=== PATIENT | female | born 1965 | race Caucasian/White ===

== ENCOUNTER → 2016-12-19 | Outpatient (CLI) | payer MEDICAID | LOC: FIMAGING 10:43 | PROVIDERS: ATTEND Family Medicine | DX: R05 Cough (principal); J02.9 Acute pharyngitis, unspecified; J18.9 Pneumonia, unspecified organism; R94.5 Abnormal results of liver function studies | CPT/HCPCS: 81256-90; 83516-90 ==

== ENCOUNTER 2017-01-15 18:39 | Emergency (ER) | payer MEDICAID ==
--- NOTE | 2017-01-15 18:40 | EDPHY ---
H & P Constitutional: Initial Vital Signs Temperature (C) 36.8 C 01/15/17 18:51 Heart Rate 101 H 01/15/17 18:51 Respiratory Rate 17 01/15/17 18:51 Blood Pressure 125/74 H 01/15/17 18:51 O2 Sat (%) 92 01/15/17 18:51 O2 Delivery Mode Room Air Allergies/Adverse Reactions: No Known Allergies Allergy (Unverified 01/15/17 18:50) Home Medications: Medication Instructions Recorded NK [No Known Home Meds] 01/15/17 Medical Decision Making ED Course/Re-evaluation: CHIEF COMPLAINT: Alcohol intoxication. HISTORY OF PRESENT ILLNESS: The patient is a 51-year-old female who presents via EMS for alcohol intoxication. Patient drinks on a daily basis and obtains whatever alcohol is available. Patient was found by bystanders who called EMS system. Patient has had multiple ER visits over the last several years for the same complaint. Patient denies any injuries denies loss of consciousness denies any recent trauma. Patient denies co-ingestion. Patient denies suicidal or homicidal behavior. REVIEW OF SYSTEMS: A 10 point review of systems was performed and is negative with the exception of the elements mentioned in the history of present illness. PHYSICAL EXAM: General Appearance: Alert, well hydrated, appropriate, and non-toxic appearing. Head: Atraumatic without scalp tenderness or obvious injury Eyes: Pupils equal, round, reactive to light and accommodation, EOMI, no trauma , no injection. Ears: Clear bilaterally, no perforation, normal landmarks Nose: Atraumatic, no rhinorrhea, clear. Throat: There is no erythema or exudates, no lesions, normal tonsils, mucus membranes moist. Neck: Supple, 2+ carotid upstroke, nontender, no lymphadenopathy. Respiratory: No retractions, no distress, no wheezes, and no accessory muscle use. Lungs are clear to auscultation bilaterally. Cardiovascular: Regular rate and rhythm, no murmurs, rubs, or gallops. Bilateral carotid, radial, dorsalis pedis, and posterior tibial pulses intact. Good capillary refill all extremities. Gastrointestinal: Abdomen is soft, nontender, non-distended, no masses, no rebound, no guarding, no peritoneal signs. Musculoskeletal: Normal active ROM of all extremities, atraumatic. Neurological: Alert, appropriate, and interactive. The patient has normal DTRs and non-focal cranial nerves, motor, sensory, and cerebellar exam. Skin: No rashes, good turgor, no nodules on palpation. PAST MEDICAL HISTORY: Denies. PAST SURGICAL HISTORY: Hysterectomy. SOCIAL HISTORY: Alcoholism. DIAGNOSTICS/PROCEDURES/CRITICAL CARE TIME: DIFFERENTIAL DIAGNOSIS: MEDICAL DECISION MAKING: I serially examined this patient since the patient's arrival here in the emergency department. The patient continues to become more and more sober with each examination. I serially questioned the patient and the patient's story given initially has not changed. The patient still denies any trauma, any head injury, and any illicit drug use. At this point, the patient is walking the department freely and is clinically sober. We're discharging the patient to the [facility] in stable condition. Departure - Departure Disposition: Home, Routine, Self-Care Clinical Impression: Alcohol intoxication Qualifiers: Complication of substance-induced condition: uncomplicated Qualified Code(s): F10.120 - Alcohol abuse with intoxication, uncomplicated Condition: Good Instructions: Abuse of Alcohol (ED) Additional Instructions: Return for any serious worsening of condition. Referrals: [facility] Detox 24 Hours [Outside] - As per Instructions Report Scribed for: Adeel Chapman Report Scribed by: Aiden Barfield Date of Report: 01/15/17 Time of Report: 18:57
[2017-01-15 18:53] VITALS: BP 125/74; PULSE 101; RESP 17; TEMP 98.2; O2SAT 92
== END 2017-01-15 19:24 | disposition home or self-care (01) ==
LOC: EDUNIT#
DX: F10.120 Alcohol abuse with intoxication, uncomplicated (principal)

== ENCOUNTER 2017-02-21 10:03 | Emergency (ER) | payer MEDICAID ==
--- NOTE | 2017-02-21 10:25 | CPEKG ---
Heart Rate: 119 RR Interval: 504 P-R Interval: 132 QRSD Interval: 86 QT Interval: 332 QTC Interval: 468 P [place]: 69 QRS [place]: 34 T Wave [place]: 63 EKG Severity - BORDERLINE ECG - EKG Impression: SINUS TACHYCARDIA EKG Impression: BORDERLINE INFERIOR Q WAVES Electronically Signed By: James Kaye 21-Feb-2017 12:12:03
[2017-02-21 10:37] LABS: % IMMATURE GRANULYOCYTES 0.4 % (0.0-1.1); ABSOLUTE IMMATURE GRANULOCYTES 0.04 10^3/uL (0.00-0.10); ADD DIFF? NO; ADD MORPH? NO; ADD SCAN? NO; ATYPICAL LYMPHOCYTE FLAG 0 (0-99); FRAGMENT RBC FLAG 0 (0-99); HEMATOCRIT 42.4 % (38.0-47.0); HEMOGLOBIN 14.5 g/dL (12.6-16.3); LEFT SHIFT FLG 0 (0-99); LIPEMIA HEMOLYSIS FLAG 90 (0-99); MEAN CELL HEMOGLOBIN 31.6 pg (27.9-34.1); MEAN CELL HEMOGLOBIN CONCENTR. 34.2 g/dL (32.4-36.7); MEAN CELL VOLUME 92.4 fL (81.5-99.8); MEAN PLATELET VOLUME 9.8 fL (8.7-11.7); PLATELET CLUMPS FLAG 10 (0-99); PLATELET COUNT 242 10^3/uL (150-400); RED BLOOD CELL COUNT 4.59 10^6/uL (4.18-5.33); RED CELL DISTRIBUTION WIDTH 11.3 % (11.5-15.2)
[2017-02-21] MEDS ORDERED: ONDANSETRON 4 MG/2 ML VIAL IVP ONE ×2 (10:37→12:03)
[2017-02-21] MEDS ORDERED: ONDANSETRON 4 MG/2 ML VIAL ONE (10:37)
[2017-02-21 10:49] LABS: ALANINE AMINOTRANSFERASE 41 IU/L (9-52); ALBUMIN 4.7 g/dL (3.5-5.0); ALKALINE PHOSPHATASE 66 IU/L (38-126); ANION GAP 20 mEq/L (8-16); ASPARTATE AMINOTRANSFERASE 43 IU/L (14-46); BILIRUBIN,TOTAL 0.9 mg/dL (0.1-1.4); BILIRUBIN-CONJUGATED 0.2 mg/dL (0.0-0.5); BILIRUBIN-UNCONJUGATED 0.7 mg/dL (0.0-1.1); CALCIUM 9.3 mg/dL (8.5-10.4); CARBON DIOXIDE 13 mEq/l (22-31); CHLORIDE 102 mEq/L (97-110); CREATININE 0.6 mg/dL (0.6-1.0); GLOMERULAR FILTRATION RATE > 60; GLUCOSE 55 mg/dL (70-100); POTASSIUM 3.6 mEq/L (3.5-5.2); SODIUM 135 mEq/L (134-144)
[2017-02-21 11:02] LABS: TROPONIN I 0.017 ng/mL (0-0.034)
--- NOTE | 2017-02-21 11:02 | EDPHY ---
H & P Stated Complaint: cp/epigastric pain sob Time Seen by Provider: 02/21/17 10:27 HPI/ROS: CHIEF COMPLAINT: Productive cough, epigastric pain HISTORY OF PRESENT ILLNESS: The patient presents to the emergency department with complaints of a productive cough and epigastric pain. The patient does report some mild hemoptysis. The patient denies any prior history of PE or DVT. The patient does have a history of asthma. She does take Singulair for this. She does not like to use albuterol secondary to side effects from the medication. The patient denies any vomiting. She does report associated nausea and diarrhea. The patient denies any recent surgery. She does have a history of multiple remote abdominal surgeries. The patient also takes Synthroid. The patient denies additional acute complaints. She does not smoke cigarettes. She reports she is a social wine drinker. REVIEW OF SYSTEMS: A comprehensive 10 point review of systems is otherwise negative aside from elements mentioned in the history of present illness. Source: Patient Exam Limitations: No limitations - Personal History LMP (Females 10-55): Hysterectomy Current Tetanus/Diphtheria Vaccine: Yes - Medical/Surgical History Hx Asthma: Yes Hx Chronic Respiratory Disease: No Hx Diabetes: No Hx Cardiac Disease: No Hx Renal Disease: No Hx Cirrhosis: No Hx Alcoholism: No Hx HIV/AIDS: No Hx Splenectomy or Spleen Trauma: No Other PMH: HYSTERECTOMY DM?/gerd - Social History Smoking Status: Former smoker - Physical Exam Exam: General Appearance: Alert, no distress Eyes: Pupils equal and round no pallor or injection ENT, Mouth: Mucous membranes moist Respiratory: There are no retractions, lungs are clear to auscultation Cardiovascular: Tachycardic Gastrointestinal: Minimal epigastric tenderness to palpation Neurological: A&O, normal motor function, normal sensory exam, normal cranial nerves Skin: Warm and dry, no rashes Musculoskeletal: Neck is supple nontender Extremities: symmetrical, full range of motion Constitutional: Initial Vital Signs Temperature (C) 36.7 C 02/21/17 10:13 Heart Rate 125 H 02/21/17 10:13 Respiratory Rate 20 02/21/17 10:13 Blood Pressure 151/65 H 02/21/17 10:13 O2 Sat (%) 94 02/21/17 10:13 O2 Delivery Mode Room Air Allergies/Adverse Reactions: amoxicillin Allergy (Verified 02/21/17 14:48) Hives azithromycin Allergy (Verified 02/21/17 14:48) Hives Home Medications: Medication Instructions Recorded Levothyroxine [Synthroid 100 mcg 100 mcg PO DAILY06 02/21/17 (*)] Montelukast Sodium [Singulair 10 10 mg PO DAILY 02/21/17 mg (*)] Multivitamins [Multivitamin (*)] 1 each PO DAILY 02/21/17 Tears/Dextran 70/Hypromellose 1 drop EACHEYE Q2 PRN 02/21/17 [Natural Balance Tears (*)] Medical Decision Making - Diagnostics EKG Interpretation: EKG: Complete interpretation has been separately recorded in the [email or web address] archive. Summary impression: Sinus tachycardia, rate 122 Imaging Results: Imaging Impressions Chest X-Ray 02/21/17 10:27 Impression: 1. No definite pneumonia. 2. Mild bronchitis. ED Course/Re-evaluation: The patient presents to the ED for evaluation of an epigastric pain and productive cough. Her chest x-ray demonstrates no evidence of acute disease. The patient has a negative D-dimer which I feel adequately excludes pulmonary embolism. The patient has normal CBC, basic metabolic panel and D-dimer. The patient's EKG demonstrates only minus as tachycardia. While in the department, the patient's symptoms shifted more towards abdominal pain and chest pain. The patient complained of moderate epigastric pain. She had no vomiting. She did have several bouts of watery diarrhea. This was sent to the lab further testing. The patient received IV Toradol, Zofran, 2 L of normal saline as well as IV narcotics. Patient had multiple examinations in the ED by myself over a 3 hour period. She continues to have ongoing tachycardia, complaints of abdominal pain and chest pain and poor appetite. At this point time the etiology of her symptoms are somewhat uncertain. It is certainly possible she is experiencing a viral syndrome with her productive cough and hemoptysis and now has developed symptoms of a gastroenteritis. Given her tachycardia I do feel that she should be admitted to the hospital for observation. Consultation was made with the hospitalist service for admission. I spoke with Dr. Jhon Cabrera at 2:30 p.m. who will admit the patient. Differential Diagnosis: Differential diagnosis considered includes pulmonary embolism, pneumonia, bronchitis, pancreatitis, peptic ulcer disease, gastroenteritis, dehydration - Data Points Laboratory Results: Laboratory Results 02/21/17 10:33 02/21/17 10:33 02/21/17 02/21/17 02/21/17 10:33 10:33 10:33 WBC 10.70 10^3/uL H 10^3/uL (3.80-9.50) RBC 4.59 10^6/uL 10^6/uL (4.18-5.33) Hgb 14.5 g/dL g/dL (12.6-16.3) Hct 42.4 % % (38.0-47.0) MCV 92.4 fL fL (81.5-99.8) MCH 31.6 pg pg (27.9-34.1) MCHC 34.2 g/dL g/dL (32.4-36.7) RDW 11.3 % L % (11.5-15.2) Plt Count 242 10^3/uL 10^3/uL (150-400) MPV 9.8 fL fL (8.7-11.7) Neut % (Auto) 77.8 % H % (39.3-74.2) Lymph % (Auto) 15.4 % % (15.0-45.0) [place] % (Auto) 5.8 % % (4.5-13.0) Eos % (Auto) 0.0 % L % (0.6-7.6) Baso % (Auto) 0.6 % % (0.3-1.7) Nucleat RBC Rel Count 0.0 % % (0.0-0.2) Absolute Neuts (auto) 8.33 10^3/uL H 10^3/uL (1.70-6.50) Absolute Lymphs (auto) 1.65 10^3/uL 10^3/uL (1.00-3.00) Absolute Monos (auto) 0.62 10^3/uL 10^3/uL (0.30-0.80) Absolute Eos (auto) 0.00 10^3/uL L 10^3/uL (0.03-0.40) Absolute Basos (auto) 0.06 10^3/uL 10^3/uL (0.02-0.10) Absolute Nucleated RBC 0.00 10^3/uL 10^3/uL (0-0.01) Immature Gran % 0.4 % % (0.0-1.1) Immature Gran # 0.04 10^3/uL 10^3/uL (0.00-0.10) D-Dimer 0.50 ug/mLFEU ug/mLFEU (0.00-0.50) Sodium 135 mEq/L mEq/L (134-144) Potassium 3.6 mEq/L mEq/L (3.5-5.2) Chloride 102 mEq/L mEq/L (97-110) Carbon Dioxide 13 mEq/l L mEq/l (22-31) Anion Gap 20 mEq/L H mEq/L (8-16) BUN 14 mg/dL mg/dL (7-23) Creatinine 0.6 mg/dL mg/dL (0.6-1.0) Estimated GFR > 60 Glucose 55 mg/dL L mg/dL (70-100) Calcium 9.3 mg/dL mg/dL (8.5-10.4) Total Bilirubin 0.9 mg/dL mg/dL (0.1-1.4) Conjugated Bilirubin 0.2 mg/dL mg/dL (0.0-0.5) Unconjugated Bilirubin 0.7 mg/dL mg/dL (0.0-1.1) AST 43 IU/L IU/L (14-46) ALT 41 IU/L IU/L (9-52) Alkaline Phosphatase 66 IU/L IU/L (38-126) Troponin I 0.017 ng/mL ng/mL (0-0.034) Total Protein 8.0 g/dL g/dL (6.3-8.2) Albumin 4.7 g/dL g/dL (3.5-5.0) Lipase 59.0 IU/L IU/L (23-300) Medications Given: Discontinued Medications Sodium Chloride (Ns) 1,000 mls @ 0 mls/hr IV ONCE ONE; Wide Open PRN Reason: Protocol Stop: 02/21/17 12:05 Last Admin: 02/21/17 12:08 Dose: 1,000 mls Sodium Chloride (Ns) 1,000 mls @ 0 mls/hr IV ONCE ONE; Wide Open PRN Reason: Protocol Stop: 02/21/17 12:05 Last Admin: 02/21/17 12:09 Dose: 1,000 mls Ketorolac Tromethamine (Toradol) 30 mg IVP EDNOW ONE Stop: 02/21/17 12:04 Last Admin: 02/21/17 12:08 Dose: 30 mg Ondansetron HCl (Zofran) 4 mg IVP EDNOW ONE Stop: 02/21/17 10:38 Last Admin: 02/21/17 10:42 Dose: 4 mg Ondansetron HCl (Zofran) 4 mg IVP EDNOW ONE Stop: 02/21/17 12:04 Last Admin: 02/21/17 12:08 Dose: 4 mg Departure - Departure Disposition: [facility] Inpatient Acute Clinical Impression: Chest pain, Bronchitis, Epigastric abdominal pain, Vomiting, Tachycardia Condition: Fair
[2017-02-21] MEDS ORDERED: KETOROLAC 30 MG/1 ML SDV IVP ONE (12:03)
[2017-02-21] MEDS ORDERED: NS 1,000 ML IV ONE ×2 (12:04)
[2017-02-21] MEDS ORDERED: LORazepam 2 MG/ML INJ IVP ONE (15:14)
[2017-02-21] MEDS ORDERED: chlordiazePOXIDE 25 MG CAP PO ONE (15:49)
[2017-02-21] MEDS ORDERED: CHLORDIAZEPOXIDE 25MG PREPK#6 BTL TAKEHOME ONE (16:17)
[2017-02-21 16:21] VITALS: BP 155/80; PULSE 103; RESP 18; TEMP 97.9; O2SAT 96
== END 2017-02-21 16:43 | disposition still patient (30) ==
LOC: UNDOADMOB 14:10
DX: J20.9 Acute bronchitis, unspecified (principal); R07.9 Chest pain, unspecified; R10.13 Epigastric pain; R11.10 Vomiting, unspecified; R00.0 Tachycardia, unspecified; F10.239 Alcohol dependence with withdrawal, unspecified
CPT/HCPCS: 96374; J1885; J2060; J2405

== ENCOUNTER 2017-02-27 14:51 | Emergency (ER) | payer MEDICAID ==
[2017-02-27 14:57] VITALS: TEMP 98.4
--- NOTE | 2017-02-27 15:02 | EDPHY ---
HPI/HX/ROS/PE/MDM Narrative: CHIEF COMPLAINT: Abdominal pain HPI: This patient is a 51-year-old female with history of diverticulitis and alcoholism who presents to the Emergency Department complaining of acute onset abdominal pain beginning yesterday and worsening over time. She describes her pain as moderate and localized to her left lower quadrant with associated abdominal bloating. She has attempted to alleviate the pain with Ibuprofen and acetaminophen without improvement. She reports normal bowel movements since onset of pain. She denies nausea or vomiting, fever or chills, or any additional complaints. She was recently in the ED on 02/21 and evaluated for epigastric pain at that time that appeared to be secondary to alcohol withdrawal. REVIEW OF SYSTEMS: Aside from elements discussed in the HPI, a comprehensive 10-point review of systems was reviewed and is negative. PMH: Diverticulitis. SOCIAL HISTORY: Alcoholism; was discharged to the [facility] after visit on 02/21 for alcohol detoxification. PHYSICAL EXAM: General:Patient is alert, in no acute distress. ENT:Eyes are normal to inspection. ENT inspection normal. Neck: Normal inspection. Full range of motion. Respiratory:No respiratory distress. Breath sounds normal bilaterally. Cardiovascular: Regular rate and rhythm. Strong peripheral pulses. Normal cap refill. Abdomen:Moderate LLQ tenderness. There are no peritoneal signs. There are normal bowel sounds. Back: Normal to inspection. No tenderness to palpation. Skin: Normal color. No rash. Warm and dry. Extremities: Normal appearance. Full range of motion. Neuro: Oriented x3. Normal motor function. Normal sensory function. ED Course: 51-year-old female with history of diverticulitis and alcohol abuse presents with complaint of abdominal pain localized to her LLQ; no associated complaints. On exam, she has moderate tenderness to her LLQ. There are no additional significant findings. Will proceed with CBC and BMP. Plan for CT of the abdomen. Creatinine measured at 0.8. Will proceed with abdominal CT. I reviewed medical records from the patient's most recent visit to the ED on 06/2017. Labs obtained: WBC mildly elevated at 11.19. 1650: Imaging results reported to me by Dr. Trent, radiology. CT reveals acute sigmoid diverticulitis and small intramural abscess. I discussed imaging findings with the patient. Will consult with on-call general surgeon. IV established. 0.5mg IV Dilaudid, 4mg IV Zofran, IV metronidazole, and 500mg PO Cipro administered. 1700: Consultation with Dr. Francis Heart, general surgery, who reviewed CT images and reports that the intramural abscess is non-surgical. The patient will be started on a course of Cipro and Flagyl to treat diverticulitis. She is given diverticulitis diet instructions and referral for follow-up. I discussed return precautions with the patient prior to discharge. She expresses agreement to this and will be discharged home in good condition. MDM: This patient presents with acute diverticulitis. Her exam is reassuring and Dr. Heart does not feel that she requires urgent surgery. On re-evaluation, she feels much better and is eating a cheeseburger without difficulty. I think she is appropriate for at least a trial of outpatient therapy. I would like to treat her with Augmentin, but she develops hives with amoxicillin so this is relatively contraindicated. Metronidazole is probably not the best choice for an alcoholic, but are options are somewhat limited, so I will treat with Cipro/ Flagyl. Patient is discharged to the [facility], so disulfuram-type reaction may in fact be beneficial. Patient was advised not to drink. - Data Points Imaging Results: Imaging Impressions Abdomen CT 02/27/17 15:53 Impression: 1. Sigmoid diverticulitis with a small intramural abscess. 2. Nonobstructing 2 mm left renal stone. 3. Additional findings as above. Findings discussed with Flo Marcano MD on 02/27/2017 at 1650 hours. Imaging: Discussed imaging studies w/ scrap shear operator Radiologist Laboratory Results: Laboratory Results 02/27/17 15:52 02/27/17 15:52 02/27/17 02/27/17 02/27/17 15:52 15:52 15:48 WBC 11.19 10^3/uL H 10^3/uL (3.80-9.50) RBC 4.79 10^6/uL 10^6/uL (4.18-5.33) Hgb 15.2 g/dL g/dL (12.6-16.3) POC Hgb 16.3 gm/dL gm/dL (12.6-16.3) Hct 44.6 % % (38.0-47.0) POC Hct 48 % H % (38-47) MCV 93.1 fL fL (81.5-99.8) MCH 31.7 pg pg (27.9-34.1) MCHC 34.1 g/dL g/dL (32.4-36.7) RDW 11.8 % % (11.5-15.2) Plt Count 203 10^3/uL 10^3/uL (150-400) MPV 10.2 fL fL (8.7-11.7) Neut % (Auto) 67.8 % % (39.3-74.2) Lymph % (Auto) 21.7 % % (15.0-45.0) [place] % (Auto) 8.8 % % (4.5-13.0) Eos % (Auto) 1.0 % % (0.6-7.6) Baso % (Auto) 0.4 % % (0.3-1.7) Nucleat RBC Rel Count 0.0 % % (0.0-0.2) Absolute Neuts (auto) 7.59 10^3/uL H 10^3/uL (1.70-6.50) Absolute Lymphs (auto) 2.43 10^3/uL 10^3/uL (1.00-3.00) Absolute Monos (auto) 0.98 10^3/uL H 10^3/uL (0.30-0.80) Absolute Eos (auto) 0.11 10^3/uL 10^3/uL (0.03-0.40) Absolute Basos (auto) 0.05 10^3/uL 10^3/uL (0.02-0.10) Absolute Nucleated RBC 0.00 10^3/uL 10^3/uL (0-0.01) Immature Gran % 0.3 % % (0.0-1.1) Immature Gran # 0.03 10^3/uL 10^3/uL (0.00-0.10) POC Sodium 141 mEq/L mEq/L (134-144) Sodium 139 mEq/L mEq/L (134-144) POC Potassium 3.8 mEq/L mEq/L (3.3-5.0) Potassium 4.2 mEq/L mEq/L (3.5-5.2) POC Chloride 99 mEq/L mEq/L (97-110) Chloride 100 mEq/L mEq/L (97-110) Carbon Dioxide 24 mEq/l mEq/l (22-31) Anion Gap 15 mEq/L mEq/L (8-16) POC BUN 12 mg/dL mg/dL (7-23) BUN 12 mg/dL mg/dL (7-23) Creatinine 0.8 mg/dL mg/dL (0.6-1.0) POC Creatinine 0.8 mg/dL mg/dL (0.6-1.0) Estimated GFR > 60 Glucose 102 mg/dL H mg/dL (70-100) POC Glucose 102 mg/dL H mg/dL (70-100) Calcium 9.9 mg/dL mg/dL (8.5-10.4) Medications Given: Discontinued Medications Ciprofloxacin (Cipro) 500 mg PO EDNOW ONE PRN Reason: Protocol Stop: 02/27/17 18:38 Last Admin: 02/27/17 18:49 Dose: 500 mg Hydromorphone HCl (Dilaudid) 0.5 mg IVP EDNOW ONE Stop: 02/27/17 17:08 Last Admin: 02/27/17 17:17 Dose: 0.5 mg Metronidazole/Sodium Chloride (Flagyl 500 Mg (Premix)) 100 mls @ 100 mls/hr IV EDNOW ONE PRN Reason: Protocol Stop: 02/27/17 19:36 Last Admin: 02/27/17 18:49 Dose: 100 mls Ondansetron HCl (Zofran) 4 mg IVP EDNOW ONE Stop: 02/27/17 17:18 Last Admin: 02/27/17 17:18 Dose: 4 mg Oxycodone/Acetaminophen (Percocet 5/325) 1 tab PO EDNOW ONE Stop: 02/27/17 18:57 Last Admin: 02/27/17 18:56 Dose: 1 tab Point of Care Test Results: 02/27/17 15:48 POC Sodium 141 POC Potassium 3.8 POC Chloride 99 POC BUN 12 POC Creatinine 0.8 POC Glucose 102 H General Time Seen by Provider: 02/27/17 15:00 Initial Vital Signs: Initial Vital Signs Temperature (C) 36.9 C 02/27/17 14:53 Heart Rate 93 02/27/17 14:53 Respiratory Rate 18 02/27/17 14:53 Blood Pressure 124/78 H 02/27/17 14:53 O2 Sat (%) 95 02/27/17 14:53 O2 Delivery Mode Room Air Allergies/Adverse Reactions: amoxicillin Allergy (Verified 02/27/17 14:52) Hives azithromycin Allergy (Verified 02/27/17 14:52) Hives Home Medications: Medication Instructions Recorded Levothyroxine [Synthroid 100 mcg 100 mcg PO DAILY06 02/21/17 (*)] Montelukast Sodium [Singulair 10 10 mg PO DAILY 02/21/17 mg (*)] Multivitamins [Multivitamin (*)] 1 each PO DAILY 02/21/17 Tears/Dextran 70/Hypromellose 1 drop EACHEYE Q2 PRN 02/21/17 [Natural Balance Tears (*)] Ciprofloxacin [Cipro] 500 mg PO BID #20 tab 02/27/17 metroNIDAZOLE [Flagyl] 500 mg PO TID #20 tab 02/27/17 Departure - Departure Disposition: Home, Routine, Self-Care Clinical Impression: Sigmoid diverticulitis Condition: Good Instructions: Diverticulitis (ED), Diverticulitis Diet (ED) Additional Instructions: 1. Take Cipro and Flagyl as prescribed to treat your diverticulitis. 2. Follow-up with your primary care provider for re-evaluation in 3-5 days. 3. Return to the Emergency Department with severe pain, high fever or chills, uncontrollable vomiting or diarrhea, or for other serious concerns. Referrals: Tracie Solis MD [Primary Care Provider] - As per Instructions Prescriptions: Ciprofloxacin [Cipro] 500 mg PO BID #20 tab metroNIDAZOLE [Flagyl] 500 mg PO TID #20 tab Report Scribed for: Flo Mracano Report Scribed by: Lauren Santiago Date of Report: 02/27/17 Time of Report: 15:02 Physician Review and Approval Statement: Portions of this note were transcribed by an ED scribe. I personally performed the history, physical exam, and medical decision making; and confirm the accuracy of the information in the transcribed note.
[2017-02-27 16:05] LABS: % IMMATURE GRANULYOCYTES 0.3 % (0.0-1.1); ABSOLUTE IMMATURE GRANULOCYTES 0.03 10^3/uL (0.00-0.10); ADD DIFF? NO; ADD MORPH? NO; ADD SCAN? NO; ATYPICAL LYMPHOCYTE FLAG 10 (0-99); FRAGMENT RBC FLAG 0 (0-99); HEMATOCRIT 44.6 % (38.0-47.0); HEMOGLOBIN 15.2 g/dL (12.6-16.3); LEFT SHIFT FLG 0 (0-99); LIPEMIA HEMOLYSIS FLAG 90 (0-99); MEAN CELL HEMOGLOBIN 31.7 pg (27.9-34.1); MEAN CELL HEMOGLOBIN CONCENTR. 34.1 g/dL (32.4-36.7); MEAN CELL VOLUME 93.1 fL (81.5-99.8); MEAN PLATELET VOLUME 10.2 fL (8.7-11.7); PLATELET CLUMPS FLAG 0 (0-99); PLATELET COUNT 203 10^3/uL (150-400); RED BLOOD CELL COUNT 4.79 10^6/uL (4.18-5.33); RED CELL DISTRIBUTION WIDTH 11.8 % (11.5-15.2)
[2017-02-27] MEDS ORDERED: IOPAMIDOL (ISOVUE-300) 100 ML BTL ONE (16:05)
[2017-02-27 16:20] LABS: ANION GAP 15 mEq/L (8-16); CALCIUM 9.9 mg/dL (8.5-10.4); CARBON DIOXIDE 24 mEq/l (22-31); CHLORIDE 100 mEq/L (97-110); CREATININE 0.8 mg/dL (0.6-1.0); GLOMERULAR FILTRATION RATE > 60; GLUCOSE 102 mg/dL (70-100); POTASSIUM 4.2 mEq/L (3.5-5.2); SODIUM 139 mEq/L (134-144)
[2017-02-27] MEDS ORDERED: HYDROmorphONE/DILAUDID 1 MG/ML SYR IVP ONE (17:07)
[2017-02-27] MEDS ORDERED: ONDANSETRON 4 MG/2 ML VIAL ONE (17:13)
[2017-02-27] MEDS ORDERED: ONDANSETRON 4 MG/2 ML VIAL IVP ONE (17:17)
[2017-02-27 18:21] VITALS: RESP 16; O2SAT 96
[2017-02-27] MEDS ORDERED: CIPROFLOXACIN 500 MG TAB PO ONE (18:37)
[2017-02-27] MEDS ORDERED: OXYCODONE/APAP 5/325 TAB ONE (18:52)
[2017-02-27] MEDS ORDERED: OXYCODONE/APAP 5/325 TAB PO ONE (18:56)
[2017-02-27] MEDS ORDERED: OXYCODONE/APAP 5/325MG PREPACK#4 BTL TAKEHOME ONE (19:24)
[2017-02-27 20:16] VITALS: BP 130/77; PULSE 80
== END 2017-02-27 20:16 | disposition home or self-care (01) ==
DX: K57.32 Diverticulitis of large intestine without perforation or abscess without bleeding (principal)
CPT/HCPCS: 82947-QW; 96365; J1170; J2405; Q9967

== ENCOUNTER → 2017-11-11 | Outpatient (CLI) | payer MEDICAID | LOC: FIMAGING 14:53 | PROVIDERS: ATTEND Family Medicine | DX: Z03.89 Encounter for observation for other suspected diseases and conditions ruled out (principal) ==

== ENCOUNTER 2018-01-28 15:33 | Emergency (ER) | payer MEDICAID ==
--- NOTE | 2018-01-28 16:04 | EDPHY ---
H & P Time Seen by Provider: 01/28/18 15:39 HPI/ROS: CHIEF COMPLAINT: Right thumb pain HISTORY OF PRESENT ILLNESS: 52-year-old female presents to the emergency department with severe pain in her right thumb. The patient states that she had carpal tunnel surgery and ganglion cyst removal on her right wrist back in August of 2017. Since that time she has had ongoing pain in her right wrist and thumb. She finally went to see her hand surgeon in [place] and had a cortisone injection yesterday done at the MCP joint of her right thumb as well as in her right wrist. She states that she thought she was feeling a bit better at went to work today and then when she tried to pickle sorter her gym bag just prior to arrival she felt a "tearing sensation" in her right thumb and now has excruciating pain. She has tingling in her other fingers. She states that she is unable to move her fingers because of severe pain. ROS: Denies numbness in her fingers, she denies pain in her right elbow or shoulder. Denies fevers or chills. Past Medical/Surgical History: Carpal tunnel surgery and ganglion cyst removal right wrist August 2017, hypertension, dyslipidemia, diverticulitis, hysterectomy, GERD Social History: Single Smoking Status: Former smoker Physical Exam: On examination, the patient has no obvious swelling or redness or warmth noted to her right thumb. She has pain with palpation especially the MCP joint. She has pain with any kind of range of motion of her right thumb. She has normal sensation to light touch with normal 2 point discrimination. The normal capillary refill. She is unable to flex her right thumb secondary to pain. Full range of motion of the right wrist. No swelling in the right wrist.. No lymphangitis. Constitutional: Initial Vital Signs Temperature (C) 36.6 C 01/28/18 15:35 Heart Rate 92 01/28/18 15:35 Respiratory Rate 17 01/28/18 15:35 Blood Pressure 140/70 H 01/28/18 15:35 O2 Sat (%) 95 01/28/18 15:35 O2 Delivery Mode Room Air Allergies/Adverse Reactions: amoxicillin Allergy (Verified 01/28/18 15:33) Hives azithromycin Allergy (Verified 01/28/18 15:33) Hives Home Medications: Medication Instructions Recorded Levothyroxine [Synthroid 100 mcg 100 mcg PO DAILY06 02/21/17 (*)] Montelukast Sodium [Singulair 10 10 mg PO DAILY 02/21/17 mg (*)] Glipizide 01/28/18 oxyCODONE/APAP 5/325 [Percocet 1 - 2 tab PO Q4-6PRN PRN #11 tab 01/28/18 5/325] MDM/Departure - MDM Imaging Results: Imaging Impressions Hand X-Ray 01/28/18 15:58 Impression: Degenerative changes, right thumb and hand; otherwise negative right hand radiographs. ED Course/Re-evaluation: 52-year-old female presents emergency department with severe pain in her right thumb. The patient states that she felt a tearing sensation when she went to pickle sorter her gym bag. She did have a recent injection in her right thumb yesterday by her hand surgeon in [place]. There is no evidence of infected joint. There is no redness. There is normal capillary refill. Strong radial pulse at her right wrist. She has pain with active range of motion. There is no signs of septic arthritis. The case was discussed with Dr. Joellen Metz, secondary supervising physician, who did not directly evaluate the patient but agrees with treatment and plan. The patient was placed in Velcro thumb spica splint and examined post application in good placement with normal FLAG SIGNALER. The patient's friend at bedside recommended Dr. Wilson Ariza as hand surgeon. Patient was also given on-call orthopedic hand surgeon, Dr. Kal Gambino. - Depart Disposition: Home, Routine, Self-Care Clinical Impression: Sprain of right thumb Qualifiers: Encounter type: initial encounter Sprain of finger site: metacarpophalangeal joint Qualified Code(s): S63.641A - Sprain of metacarpophalangeal joint of right thumb, initial encounter Condition: Good Instructions: Finger Sprain (ED) Additional Instructions: Splint for comfort and support. Ibuprofen 600 mg every 8 hr as needed for pain. Percocet for severe pain as directed. Prescriptions: oxyCODONE/APAP 5/325 [Percocet 5/325] 1 - 2 tab PO Q4-6PRN PRN #11 tab PRN Reason: For Moderate To Severe Pain Referrals: Wilson Ariza MD [Medical Doctor] - As per Instructions Kal Gambino MD [Medical Doctor] - As per Instructions (Orthopedic hand surgeon on-call)
[2018-01-28 16:48] VITALS: BP 155/78
== END 2018-01-28 16:57 | disposition home or self-care (01) ==
DX: S63.641A Sprain of metacarpophalangeal joint of right thumb, initial encounter (principal); I10 Essential (primary) hypertension; Z87.891 Personal history of nicotine dependence; X50.9XXA Other and unspecified overexertion or strenuous movements or postures, initial encounter; Y92.89 Other specified places as the place of occurrence of the external cause; Y99.8 Other external cause status; Y93.89 Activity, other specified

== ENCOUNTER 2018-02-24 17:36 | Emergency (ER) | payer MEDICAID ==
--- NOTE | 2018-02-24 18:05 | EDPHY ---
H & P Time Seen by Provider: 02/24/18 17:52 HPI/ROS: Chief complaint. Abdominal pain HPI. 13 walking her old female presents with left flank pain for 3 days. Worse today with some vomiting. She has a history of kidney stones and feels that this could be similar to her previous kidney stone. She has chills but unknown fever. She has urinary frequency and dysuria. No chest discomfort or trouble breathing. Pain in the left flank. ROS Constitutional. Chills Eyes. no problems with vision ENT. no sore throat, no nasal drainage Cardiovascular. no chest pain Respiratory. no shortness of breath, no cough Abdominal. Left flank pain, vomiting . no problems urinating MS. no calf pain/swelling, no neck/back pain, no joint pain Skin. no rash Lymph. no swollen glands Neuro. no headache, no dizziness, no difficulty walking or with speech Past Medical/Surgical History: Past medical history diabetes hysterectomy diverticulitis hypertension dyslipidemia kidney stones Social History: Single, nonsmoker, no alcohol Smoking Status: Former smoker Physical Exam: General Appearance: Alert well-developed female moderate distress vital signs are significant for heart rate of 109. She is afebrile Eyes: Pupils equal and round no pallor or injection. ENT, Mouth: Mucous membranes are moist. Respiratory: There are no retractions, lungs are clear to auscultation. Cardiovascular: Regular rate and rhythm. Gastrointestinal: Abdomen is soft and nontender. She has left flank tenderness to palpation Neurological: Awake and alert, sensory and motor exams grossly normal. Skin: Warm and dry, no rashes. Musculoskeletal: Neck is supple nontender. Extremities symmetrical, full range of motion. Psychiatric: Patient is oriented X 3, there is no agitation. Constitutional: Initial Vital Signs Temperature (C) 36.6 C 02/24/18 17:37 Heart Rate 109 H 02/24/18 17:37 Respiratory Rate 20 02/24/18 17:37 Blood Pressure 158/93 H 02/24/18 17:37 O2 Sat (%) 96 02/24/18 17:37 O2 Delivery Mode Room Air Allergies/Adverse Reactions: amoxicillin Allergy (Verified 01/28/18 15:33) Hives azithromycin Allergy (Verified 01/28/18 15:33) Hives Home Medications: Medication Instructions Recorded Levothyroxine [Synthroid 100 mcg 100 mcg PO DAILY06 02/21/17 (*)] Montelukast Sodium [Singulair 10 10 mg PO DAILY 02/21/17 mg (*)] Glipizide 01/28/18 Cephalexin [Keflex (*)] 500 mg PO TID #21 cap 02/24/18 Levemir 02/24/18 Medical Decision Making - Diagnostics Imaging Results: Imaging Impressions Abdomen/Pelvis CT 02/24/18 18:32 Impression: 1. Nonobstructive nephrolithiasis. 2. Sigmoid diverticulosis without convincing evidence of acute diverticulitis. Findings were communicated by telephone with Dr. PUMA HEWITT at 02/24/2018 19 :[address] of abdomen and pelvis reviewed by me and discussed with Dr. Genao shows no evidence for ureteral stone Procedures: IV normal saline, IV Toradol, IV Zofran, IV Rocephin Urine sent for culture sensitivity ED Course/Re-evaluation: Re-evaluation 7:35 p.m.--patient is stable. No vomiting. Patient and I discussed imaging and lab results. We discussed treatment plan including criteria for return importance of follow-up and further evaluation. She expresses understanding and agreement Differential Diagnosis: I considered urinary tract infection, pyelonephritis, kidney stone - Data Points Laboratory Results: Laboratory Results 02/24/18 18:03 02/24/18 19:55 02/24/18 02/24/18 02/24/18 19:55 18:50 18:03 WBC RBC Hgb Hct MCV MCH MCHC RDW Plt Count MPV Neut % (Auto) Lymph % (Auto) [place] % (Auto) Eos % (Auto) Baso % (Auto) Nucleat RBC Rel Count Absolute Neuts (auto) Absolute Lymphs (auto) Absolute Monos (auto) Absolute Eos (auto) Absolute Basos (auto) Absolute Nucleated RBC Immature Gran % Immature Gran # Sodium 143 mEq/L mEq/L TNP (135-145) Potassium 3.7 mEq/L mEq/L TNP (3.3-5.0) Chloride 111 mEq/L H mEq/L TNP (97-110) Carbon Dioxide 22 mEq/l mEq/l TNP (22-31) Anion Gap 10 mEq/L mEq/L TNP (8-16) BUN 11 mg/dL mg/dL TNP (7-23) Creatinine 0.4 mg/dL L mg/dL TNP (0.6-1.0) Estimated GFR > 60 TNP Glucose 112 mg/dL H mg/dL TNP (70-100) POC Glucose 189 mg/dL H mg/dL (70-100) Calcium 8.1 mg/dL L mg/dL TNP (8.5-10.4) Specimen Hemolysis TNP Urine Color Urine Appearance Urine pH Ur Specific [place] Urine Protein Urine Ketones Urine Blood Urine Nitrate Urine Bilirubin Urine Urobilinogen Ur Leukocyte Esterase Urine RBC Urine WBC Ur Epithelial Cells Urine Mucus Urine Glucose 02/24/18 02/24/18 18:03 17:45 WBC 9.18 10^3/uL 10^3/uL (3.80-9.50) RBC 5.10 10^6/uL 10^6/uL (4.18-5.33) Hgb 15.6 g/dL g/dL (12.6-16.3) Hct 46.3 % % (38.0-47.0) MCV 90.8 fL fL (81.5-99.8) MCH 30.6 pg pg (27.9-34.1) MCHC 33.7 g/dL g/dL (32.4-36.7) RDW 12.1 % % (11.5-15.2) Plt Count 276 10^3/uL 10^3/uL (150-400) MPV 9.9 fL fL (8.7-11.7) Neut % (Auto) 56.2 % % (39.3-74.2) Lymph % (Auto) 31.9 % % (15.0-45.0) [place] % (Auto) 9.9 % % (4.5-13.0) Eos % (Auto) 1.3 % % (0.6-7.6) Baso % (Auto) 0.4 % % (0.3-1.7) Nucleat RBC Rel Count 0.0 % % (0.0-0.2) Absolute Neuts (auto) 5.15 10^3/uL 10^3/uL (1.70-6.50) Absolute Lymphs (auto) 2.93 10^3/uL 10^3/uL (1.00-3.00) Absolute Monos (auto) 0.91 10^3/uL H 10^3/uL (0.30-0.80) Absolute Eos (auto) 0.12 10^3/uL 10^3/uL (0.03-0.40) Absolute Basos (auto) 0.04 10^3/uL 10^3/uL (0.02-0.10) Absolute Nucleated RBC 0.00 10^3/uL 10^3/uL (0-0.01) Immature Gran % 0.3 % % (0.0-1.1) Immature Gran # 0.03 10^3/uL 10^3/uL (0.00-0.10) Sodium Potassium Chloride Carbon Dioxide Anion Gap BUN Creatinine Estimated GFR Glucose POC Glucose Calcium Specimen Hemolysis Urine Color YELLOW Urine Appearance HAZY Urine pH 5.0 (5.0-7.5) Ur Specific [place] 1.024 (1.002-1.030) Urine Protein NEGATIVE (NEGATIVE) Urine Ketones NEGATIVE (NEGATIVE) Urine Blood NEGATIVE (NEGATIVE) Urine Nitrate NEGATIVE (NEGATIVE) Urine Bilirubin NEGATIVE (NEGATIVE) Urine Urobilinogen NEGATIVE EU EU (0.2-1.0) Ur Leukocyte Esterase 3+ H (NEGATIVE) Urine RBC 25-50 /hpf H /hpf (0-3) Urine WBC 15-25 /hpf H /hpf (0-3) Ur Epithelial Cells TRACE /lpf /lpf (NONE-1+) Urine Mucus TRACE /lpf /lpf (NONE-1+) Urine Glucose NEGATIVE (NEGATIVE) Medications Given: Discontinued Medications Ceftriaxone Sodium/Dextrose (Rocephin 1 Gm (Premix)) 50 mls @ 100 mls/hr IV EDNOW ONE PRN Reason: Protocol Stop: 02/24/18 19:01 Last Admin: 02/24/18 18:44 Dose: 50 mls Ketorolac Tromethamine (Toradol) 30 mg IVP EDNOW ONE Stop: 02/24/18 18:33 Last Admin: 02/24/18 18:45 Dose: 30 mg Morphine Sulfate (Morphine) 6 mg IVP EDNOW ONE Stop: 02/24/18 19:51 Last Admin: 02/24/18 19:52 Dose: 6 mg Ondansetron HCl (Zofran) 4 mg IVP EDNOW ONE Stop: 02/24/18 18:33 Last Admin: 02/24/18 18:45 Dose: 4 mg Point of Care Test Results: Chemistry 02/24/18 18:50 POC Glucose 189 mg/dL H mg/dL (70-100) Departure - Departure Disposition: Home, Routine, Self-Care Clinical Impression: Acute pyelonephritis Condition: Good Instructions: Urinary Tract Infection in Women (ED) Additional Instructions: Drink plenty of fluids and stay hydrated Begin cephalexin tomorrow Tonight hydrocodone 1 pill every 4-6 hours as needed for pain. Zofran 1 pill every 3-4 hours as needed for nausea Return for worsening symptoms. Recheck in 2 days without fail Referrals: ED,PHYSICIAN ONDUTY [Medical Doctor] - As per Instructions Prescriptions: Cephalexin [Keflex (*)] 500 mg PO TID #21 cap
[2018-02-24] MEDS ORDERED: ONDANSETRON 4 MG/2 ML VIAL IVP ONE (18:32)
[2018-02-24] MEDS ORDERED: KETOROLAC 30 MG/1 ML SDV IVP ONE (18:32)
[2018-02-24 18:50] LABS: PLATELET COUNT 276 10^3/uL (150-400)
[2018-02-24] MEDS ORDERED: HYDROCOD/APAP 5/325 PREPACK#6 BTL TAKEHOME ONE (20:56)
[2018-02-24] MEDS ORDERED: ONDANSETRON 4MG PREPACK#2 BTL TAKEHOME ONE (20:56)
[2018-02-24 21:08] VITALS: BP 107/69
== END 2018-02-24 21:10 | disposition home or self-care (01) ==
DX: N10 Acute pyelonephritis (principal); E11.9 Type 2 diabetes mellitus without complications; I10 Essential (primary) hypertension; Z87.891 Personal history of nicotine dependence
CPT/HCPCS: 96365; J0696; J1885; J2270; J2405

== ENCOUNTER → 2018-06-15 | Outpatient (CLI) | payer OTHER | LOC: FIMAGING 19:02 | PROVIDERS: ATTEND Family Medicine | DX: M25.551 Pain in right hip (principal) ==

== ENCOUNTER → 2018-06-16 | Outpatient (CLI) | payer OTHER ==
[~2018-06-16] MED LIST: GADOBUTROL 10 ML VIAL IVP ONE
== END ==
LOC: FIMAGING 14:35
PROVIDERS: ATTEND Physician Assistant
DX: M87.851 Other osteonecrosis, right femur (principal)
CPT/HCPCS: A9585

== ENCOUNTER 2018-07-20 07:50 | Observation (INO) | payer OTHER ==
--- NOTE | 2018-07-19 18:34 | PDGENHP ---
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 Risks, benefits, and alternatives were discussed and patient would like to proceed with surgical intervention. Pertinent Past, Social, Family History: PMH: Anxiety, arthritis, asthma, diabetes, acid reflux, thyroid problems. SH: nonsmoker. FH: non-contributory Relevant Physical Exam: Physical exam of the right femur demonstrates well maturing lateral hip and posterior buttock incisions. She has pain in the groin with passive hip ROM, specifically with IR. Cardiorespiratory Assessment: RRR, CTAB
--- NOTE | 2018-07-20 07:18 | PDHPUP ---
History & Physical Update H&P update statement: This history and physical update is based on an assessment of the patient which was completed after admission or registration (within 24 hours), but prior to the surgery/procedure. H&P update: H&P reviewed & patient examined, no change in patient's condition since H&P completed
[2018-07-20] MEDS ORDERED: CLINDAMYCIN 600 MG/DEXTROSE 50 ML IV ONE (07:55)
[2018-07-20] MEDS ORDERED: LR 1,000 ML IV ONE (07:55)
[2018-07-20] MEDS ORDERED: LIDOCAINE 1% 2 ML INJ ID PRN (07:55)
[2018-07-20] MEDS ORDERED: BUPIVACAINE 0.5% 30 ML SDV ONE ×3 (08:54→13:18)
[2018-07-20] MEDS ORDERED: POLYMYXIN B SULFATE 500,000 UNIT/10 ML SYR IRR ONE ×2 (08:54→09:29)
[2018-07-20] MEDS ORDERED: BACITRACIN 50,000 UNITS/10 ML SYR IRR ONE ×2 (08:54→09:29)
--- NOTE | 2018-07-20 09:39 | PDANEPAE ---
ANE History of Present Illness right IM kiara removal ANE Past Medical History - Cardiovascular History Hx Hypertension: No Hx Arrhythmias: No Hx Chest Pain: No Hx Coronary Artery / Peripheral Vascular Disease: No Hx CHF / Valvular Disease: No Hx Palpitations: No Cardiovascular History Comment: BP RUNS LOW. MURMUR - Pulmonary History Hx COPD: No Hx Asthma/Reactive Airway Disease: Yes Hx Recent Upper Respiratory Infection: No Hx Oxygen in Use at Home: No Hx Sleep Apnea: No Sleep Apnea Screening Result - Last Documented: Negative Pulmonary History Comment: ASTHMA TRIGGERS HAS RESCUE INHALER SELDOM USES - Neurologic History Hx Cerebrovascular Accident: No Hx Seizures: No Hx Dementia: No - Endocrine History Hx Diabetes: Yes Endocrine History Comment: IDDM. HYPOTHYROID - Renal History Hx Renal Disorders: Yes Renal History Comment: KIDNEY STONES. UTI 02/2018 - Liver History Hx Hepatic Disorders: No - Neurological & Psychiatric Hx Hx Neurological and Psychiatric Disorders: No - Cancer History Hx Cancer: No - Congenital Disorder History Hx Congenital Disorders: No - GI History Hx Gastrointestinal Disorders: Yes Gastrointestinal History Comment: DIVERTICULITIS. GERD NO RX USED - Other Health History Other Health History: CHRONIC SINUSITIS. OSTEOMYLETITIS 2013 - Chronic Pain History Chronic Pain: Yes (RT LEG) - Surgical History Prior Surgeries: INTERNAL BLEEDING . RISHI ARM ORIF. HYSTERECTOMY. BOWEL RESECTION DIVERTICULIUM. LUMBAR LAMINECTOMY. CERVICAL FUSION. T&A ANE Review of Systems Review of Systems: - Exercise capacity METS (RN): 4 METS ANE Patient History - Allergies Allergies/Adverse Reactions: amoxicillin Allergy (Verified 01/28/18 15:33) Hives azithromycin Allergy (Verified 07/12/18 10:23) Hives latex Allergy (Verified 07/12/18 10:23) Hives tetracycline Allergy (Verified 07/12/18 10:23) Hives - Home Medications Home medications: home medication list seen and reviewed Home Medications: Montelukast Sodium [Singulair 10 mg (*)] 10 mg PO HS 02/21/17 [Last Taken ] Gabapentin [Neurontin 300 MG (*)] 600 mg PO DAILY16 07/12/18 [Last Taken ] Gabapentin [Neurontin 300 MG (*)] 900 mg PO DAILY 07/12/18 [Last Taken 07/20/18 06:30] Insulin Glargine/Lixisenatide [Soliqua 100 Unit-33 Mcg/ml Pen] 24 units SQ DAILY 07/12/18 [Last Taken 07/20/18 07:30] Levothyroxine [Synthroid 88 mcg (*)] 88 mcg PO DAILY06 07/12/18 [Last Taken 03/01 06:30] Albuterol [Proventil Inhaler HFA (*)] 1 - 2 puffs IH Q4H PRN 07/13/18 [Last Taken 06/20/18] HYDROmorphone HCL [Dilaudid 2 mg (*)] 2 mg PO Q4-6PRN PRN 07/20/18 [Last Taken 07/20/18 04:00] - NPO status NPO Since - Liquids (Date): 07/20/18 NPO Since - Liquids (Time): 06:30 NPO Since - Solids (Date): 07/19/18 NPO Since - Solids (Time): 19:30 - Smoking Hx Smoking Status: Former smoker ANE Labs/Vital Signs - Vital Signs Blood Pressure: 136/71 Heart Rate: 75 Respiratory Rate: 16 O2 Sat (%): 90 Height: 162.56 cm Weight: 63.503 kg ANE Physical Exam - Airway Neck exam: FROM Mallampati Score: Class 2 Mouth exam: normal dental/mouth exam - Pulmonary Pulmonary: no respiratory distress - Cardiovascular Cardiovascular: regular rate and rhythym - ASA Status ASA Status: III ANE Anesthesia Plan Anesthesia Plan: general endotracheal anesthesia
[2018-07-20] MEDS ORDERED: MIDAZOLAM 2 MG/2 ML VIAL IVP ONE (10:23)
[2018-07-20] MEDS ORDERED: fentaNYL 100 MCG/2 ML INJ ONE ×4 (10:26→14:07)
[2018-07-20] MEDS ORDERED: PROPOFOL 200 MG/20 ML VIAL ONE (10:27)
[2018-07-20] MEDS ORDERED: SUGAMMADEX SODIUM 200 MG/2 ML VIAL IVP ONE (10:29)
[2018-07-20] MEDS ORDERED: DEXAMETHASONE 4 MG/ML VIAL ONE (10:29)
[2018-07-20] MEDS ORDERED: LIDOCAINE 2% 5 ML SDV ONE (10:29)
[2018-07-20] MEDS ORDERED: ROCURONIUM 50 MG/5 ML VIAL ONE ×2 (10:29→11:46)
[2018-07-20] MEDS ORDERED: ONDANSETRON 4 MG/2 ML VIAL ONE (10:29)
[2018-07-20] MEDS: SCOPOLAMINE HYDROBROMIDE 1 MG/3 DAYS PATCH TD SCH (10:30)
[2018-07-20] MEDS ORDERED: KETOROLAC 30 MG/1 ML SDV ONE (10:34)
--- NOTE | 2018-07-20 10:35 | POSTANESTH ---
Post Anesthetic Evaluation Cardiovascular Status: Normal, Stable Respiratory Status: Normal, Stable Level of Consciousness/Mental Status: Can Participate in Eval, Alert and Oriented Pain Control: Adequate, Prn Tx Ordered Nausea/Vomiting Control: Adequate, Prn Tx Ordered Complications Possibly Related to Anesthesia: None Noted
[2018-07-20] MEDS ORDERED: PHENYLEPHRINE HCL 100 MCG/ML SYR ONE (11:12)
[2018-07-20] MEDS ORDERED: HYDROmorphONE/DILAUDID 2 MG/ML INJ ONE ×2 (11:44→13:39)
[2018-07-20] MEDS ORDERED: ePHEDrine SULFATE 25 MG/5 ML SYR ONE (11:48)
[2018-07-20] MEDS ORDERED: HYDROCODONE/APAP 5/325 TAB PO PRN (13:00)
[2018-07-20] MEDS ORDERED: ONDANSETRON 4 MG/2 ML VIAL IVP PRN ×2 (13:00→20:16)
[2018-07-20] MEDS ORDERED: ACETAMINOPHEN 500 MG TAB PO PRN (13:00)
[2018-07-20] MEDS ORDERED: LR 500 ML IV PRN (13:00)
[2018-07-20] MEDS ORDERED: ALBUTEROL 3 ML DEYVIAL IH PRN (13:00)
[2018-07-20] MEDS ORDERED: oxyCODONE IR 5 MG TAB PO PRN (13:00)
[2018-07-20] MEDS ORDERED: PROMETHAZINE HCL 25 MG/ML INJ IVP PRN ×2 (13:00→20:16)
[2018-07-20] MEDS ORDERED: NALOXONE HCL 0.4 MG/ML INJ IVP PRN (13:00)
[2018-07-20] MEDS ORDERED: ACETAMINOPHEN 325 MG TAB PO PRN (13:14)
--- NOTE | 2018-07-20 13:14 | POSTOPPROG ---
Post Op Note Date of Operation: 07/20/18 Surgeon: Daphney Bravo Senior Maintenance Technician: coltrain Anesthesia: GET(General Endotracheal) Pre-op Diagnosis: retained femoral kiara Procedure: removal femoral kiara with fluoro Inf/Abcess present in the surg proc area at time of surgery?: No Depth: Deep Incisional (Fascial) EBL: 100-500
[2018-07-20] MEDS ORDERED: ALBUTEROL 60 PUFFS/8 GM MDI IH PRN (13:18)
[2018-07-20] MEDS ORDERED: HYDROmorphONE/DILAUDID 2 MG TAB PO PRN (13:18)
[2018-07-20] MEDS: fentaNYL 100 MCG/2 ML INJ IVP PRN ×3 (13:42→14:09)
[2018-07-20] MEDS: HYDROmorphONE/DILAUDID 2 MG/ML INJ IVP PRN ×5 (13:51→14:46)
[2018-07-20] MEDS ORDERED: oxyCODONE IR 5 MG TAB ONE (14:31)
[2018-07-20] MEDS ORDERED: ONDANSETRON 4 MG/2 ML VIAL IVP ONE (16:15)
[2018-07-20] MEDS: GABAPENTIN 300 MG CAP PO SCH (16:35)
[2018-07-20] MEDS: traMADol 50 MG TAB PO SCH ×2 (16:40→23:38)
[2018-07-20] MEDS: ONDANSETRON DISINTEGRATING 4 MG TAB PO PRN (20:59)
[2018-07-20] MEDS: MONTELUKAST SODIUM 10 MG TAB PO SCH (20:59)
[2018-07-20] MEDS: HYDROmorphONE/DILAUDID 2 MG TAB PO PRN (20:59)
--- NOTE | 2018-07-21 00:59 | GOP ---
DATE OF OPERATION: 07/20/2018 SURGEON: Daphney Bravo MD SCHEDULE PLANNING MANAGER: DESEAN Spence, A, whose presence was medically necessary. ANESTHESIA: Endotracheal intubation. PREOPERATIVE DIAGNOSIS: Retained right femoral intramedullary kiara. POSTOPERATIVE DIAGNOSIS: Retained right femoral intramedullary kiara. PROCEDURE PERFORMED: Removal of hardware from right femur with two separate incisions secondary to b reakage of the hardware. She had bone grafting of the distal femur. FINDINGS: INDICATIONS: This is a 53-year-old female who underwent a right femoral rodding 40 years ago. 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 In order to replace the hip, which would be the treatment for the AVN, she needs to have the kiara r emoved. She therefore elected to have the kiara taken out. DESCRIPTION OF PROCEDURE: Patient was brought to the operating room after the right side had been id entified as the correct side by the patient, nurse, and physician. Once in the operating room, she w as placed under general anesthesia using endotracheal intubation. She was then placed in a lateral d ecubitus position with an axillary roll. Once in position, the right lower extremity was sterilely p repped and draped in the usual fashion using GSI solution. Once prepped and draped, a linear incisio n was made centered over the greater trochanter with sharp dissection carried down through the skin a nd subcutaneous layers, identifying the fascia below. The fascia was split in line with its fibers, gaining access into the greater trochanter. There was an overabundance of bone associated with overg rowth and heterotopic ossification around the greater trochanter. This was removed until finding the hardware. The hardware was able to be cleared secondary to the broach-like edges and smaller diamet er at the proximal portion of the kiara rather than the midportion of the kiara. An adequate hole had to be made in the superior portion of the greater trochanter in order to gain access to the kiara. A rem oval device was able to be screwed into the end of the kiara and then, as it was being malleted out, th e tip of the insertion device of the kiara broke off. The rest of the kiara remained in place and was to o deep to gain purchase on it using traditional methods. Therefore, a 2nd incision was made near the lateral femoral condyle with sharp dissection, carried down through the skin and subcutaneous layers . Incision was made through the fascial layers overlying the ITB, gaining access onto the distal fem ur. Fluoroscopy was used to ensure proper positioning of a hole being placed in the lateral portion of the femoral condyle in order to gain access into the intramedullary portion to find the tip of the kiara. Once the tip of the kiara was found, adequate amount of cancellous bone had to be removed in ord er to gain access to the tip of the kiara with a curved bone tamp. Combination of osteotome and bone t amp was used to drive the kiara proximally until it protruded enough out of the proximal hole that vice journal box inspector could be placed on the remainder of the kiara which was then attached to a slap hammer, and the entire kiara was able to be removed. The distal femoral wound was then packed with bone graft in order to accommodate for the amount of cancellous bone that had to be removed in order to gain access to t he kiara, and the wound was thoroughly irrigated with antibiotic solution. It was closed in layers to include 0 Vicryl suture for the fascial layer and deep subcutaneous layers, 2-0 Vicryl suture for the fat and for the subcutaneous layers, and a 3-0 V-Loc suture in a running subcuticular stitch for the skin. The proximal wound was closed in layers to include 0 Vicryl suture for the fascial layer over lying the greater trochanter and the deep subcutaneous layers, 2-0 Vicryl suture for subcutaneous lay ers, and a 3-0 V-Loc suture in a running subcuticular stitch for the skin. 30 cc of Marcaine were in fused into the proximal and distal wounds. Each wound was then dressed with Steri-Strips, Xeroform, 4 x 4, and Tegaderm. Patient was completely undraped in the operating room. She was placed in supin e position, woken up, extubated, transferred onto a stretcher, and sent to recovery room in good cond ition. /[id number]/MODL
[2018-07-21] MEDS: HYDROmorphONE/DILAUDID 2 MG TAB PO PRN ×3 (01:48→08:33)
[2018-07-21] MEDS: traMADol 50 MG TAB PO SCH ×4 (05:20→23:34)
[2018-07-21] MEDS: LEVOTHYROXINE 88 MCG TAB PO SCH (05:21)
[2018-07-21] MEDS: GABAPENTIN 300 MG CAP PO SCH ×2 (08:13→16:06)
[2018-07-21] MEDS: INSULIN GLARGINE SQ SCH ×2 (09:36→16:07)
[2018-07-21] MEDS: LIXISENATIDE SQ SCH ×2 (09:36→16:07)
[2018-07-21] MEDS ORDERED: PATCH REMOVAL 1 EA PATCH TD ONE (10:23)
--- NOTE | 2018-07-21 12:42 | SOAPPROG ---
SOAP Progress Note Assessment/Plan: Assessment: Maryellen is a now POD#1 s/p right femur hardware removal. She continues to complain of pain. PE: Patient is sitting comfortably eating lunch. Dressings are clean and dry. NV intact RLE. Calf soft to compression without pain Plan: 1. Keep dressing clean and dry. 2. Continue IV and PO pain medication 3. Toe touch weight bearing 4. Plan for discharge to SNF at [facility]. 07/21/18 12:40 Objective: Vital Signs Temp Pulse Resp BP Pulse Ox 36.8 C 86 16 107/52 L 93 07/21/18 11:56 07/21/18 11:56 07/21/18 11:56 07/21/18 11:56 07/21/18 11:56 07/20/18 07/21/18 07/22/18 05:59 05:59 05:59 Intake Total 3250 Output Total 3020 1100 Balance 230 -1100 ICD10 Worksheet Patient Problems: Problems Problem Status Onset Bronchitis Acute Chest pain Acute Epigastric abdominal pain Acute Tachycardia Acute Vomiting Acute
[2018-07-21] MEDS: HYDROmorphONE/DILAUDID 4 MG TAB PO PRN ×2 (13:18→18:48)
[2018-07-21] MEDS ORDERED: NON-FORMULARY NEW DRUG (Insulin Lispro [Humalog Kwikpen U-100] 0 UNIT) SQ PRN (16:16)
[2018-07-21] MEDS: Insulin Lispro [Humalog Kwikpen U-100] SQ PRN (16:48)
[2018-07-21] MEDS: MONTELUKAST SODIUM 10 MG TAB PO SCH (23:34)
[2018-07-22] MEDS: HYDROmorphONE/DILAUDID 4 MG TAB PO PRN ×5 (03:33→19:44)
[2018-07-22] MEDS: traMADol 50 MG TAB PO SCH ×3 (05:06→17:42)
[2018-07-22] MEDS: LEVOTHYROXINE 88 MCG TAB PO SCH (05:06)
[2018-07-22] MEDS: GABAPENTIN 300 MG CAP PO SCH ×2 (07:45→15:48)
[2018-07-22] MEDS: RIVAROXABAN 10 MG TAB PO SCH (07:45)
[2018-07-22] MEDS: INSULIN GLARGINE SQ SCH (07:46)
[2018-07-22] MEDS: LIXISENATIDE SQ SCH (07:46)
[2018-07-22] MEDS ORDERED: DIAZEPAM 5 MG TAB PO PRN (08:40)
--- NOTE | 2018-07-22 10:34 | ASMTCMCOM ---
CM Note CM Note Notes: Pt s/p R femur hardware removal. PT/OT rec SNF. Pt clinically accepted at [facility], awaiting insurance authorization. D/c plan of care: [facility] when medically stable and insurance auth obtained Date Signed: 07/22/2018 10:33 AM Electronically Signed By:EDSON Colbert
[2018-07-22] MEDS ORDERED: POLYETHYLENE GLYCOL 3350 17 GM PKT PO PRN (11:53)
[2018-07-22] MEDS ORDERED: BISACODYL 10 MG SUPP PR PRN (11:53)
[2018-07-22] MEDS ORDERED: LACTULOSE 20 GM/30 ML UDCUP PO PRN (11:53)
[2018-07-22] MEDS ORDERED: MAGNESIUM HYDROXIDE 30 ML UDCUP PO PRN (11:53)
[2018-07-22] MEDS: DIAZEPAM 2 MG TAB PO PRN (17:42)
[2018-07-22] MEDS: SENNOSIDES/DOCUSATE SODIUM TAB PO SCH (21:04)
[2018-07-22] MEDS: MONTELUKAST SODIUM 10 MG TAB PO SCH (21:04)
[2018-07-22] MEDS: Insulin Lispro [Humalog Kwikpen U-100] SQ PRN (21:05)
[2018-07-23] MEDS: DIAZEPAM 2 MG TAB PO PRN ×4 (00:17→18:46)
[2018-07-23] MEDS: traMADol 50 MG TAB PO SCH ×5 (00:17→23:16)
[2018-07-23] MEDS: HYDROmorphONE/DILAUDID 4 MG TAB PO PRN ×7 (00:28→23:16)
[2018-07-23] MEDS: LEVOTHYROXINE 88 MCG TAB PO SCH (06:06)
[2018-07-23] MEDS: GABAPENTIN 300 MG CAP PO SCH ×2 (08:08→16:23)
[2018-07-23] MEDS: SENNOSIDES/DOCUSATE SODIUM TAB PO SCH ×2 (08:10→19:53)
[2018-07-23] MEDS: RIVAROXABAN 10 MG TAB PO SCH (08:10)
[2018-07-23] MEDS: Insulin Lispro [Humalog Kwikpen U-100] SQ PRN ×2 (08:14→23:53)
[2018-07-23] MEDS: INSULIN GLARGINE SQ SCH (09:00)
[2018-07-23] MEDS: LIXISENATIDE SQ SCH (09:00)
[2018-07-23] MEDS: SCOPOLAMINE HYDROBROMIDE 1 MG/3 DAYS PATCH TD SCH (11:17)
--- NOTE | 2018-07-23 14:03 | PDIAF ---
- Diagnosis Diagnosis: Right femure removal of instrumentation Code Status: Full Code - Medication Management Discharge Medications: electronically signed and located in the Home Medication List. - Orders Services needed: Registered Nurse, Physical Therapy, Occupational Therapy Diet Recommendation: no restrictions on diet Diet Texture: Regular Texture Diet Additional Instructions: Continue toe touch weight bearing. PT/OT. Follow up in office in 10 days for repeat evaluation repeat radiograph and wound check. - Follow Up Care Current Providers and Referrals: Melissa Solis [Primary Care Provider] - Daphney Bravo MD [Medical Doctor] -
--- NOTE | 2018-07-23 16:25 | ASMTCMCOM ---
CM Note CM Note Notes: Everything worked out with insurance and [facility] has auth pt for d/c today. In the afternoon pt reported coughing up blood with sputum. Hospitalist to consult to medically clear pt, this will not happen in time for d/c today. [facility] updated and will be able to take pt tomorrow if medically stable. Date Signed: 07/23/2018 04:03 PM Electronically Signed By:EDSON Colbert
--- NOTE | 2018-07-23 17:51 | SOAPPROG ---
SOAP Progress Note Assessment/Plan: Assessment on 07/22/18 -- Maryellen is a now POD#2 s/p right femur hardware removal. She continues to complain of pain. I spoke with the nurse earlier today and discontinued the IV morphine and started valium for muscle spasm. According to nursing patient has not been complaining as much of pain, however patient continues to report significant pain. PE: Patient is sitting comfortably while I am in the room. Dressings are clean and dry. NV intact RLE. Calf soft to compression without pain Plan: 1. Keep dressing clean and dry. 2. Continue PO pain medication. We changed the Dilaudid to q3hrs and changed Valium to 2mg. 3. Toe touch weight bearing 4. Plan for discharge to SNF at [facility] tomorrow 07/21/18 12:40 Objective: Vital Signs Temp Pulse Resp BP Pulse Ox 36.7 C 98 16 120/72 75 L 07/23/18 16:00 07/23/18 16:00 07/23/18 16:00 07/23/18 16:00 07/23/18 16:00 07/22/18 07/23/18 07/24/18 05:59 05:59 05:59 Intake Total 3200 5200 800 Output Total 1800 1400 Balance 1400 3800 800 ICD10 Worksheet Patient Problems: Problems Problem Status Onset Bronchitis Acute Chest pain Acute Epigastric abdominal pain Acute Tachycardia Acute Vomiting Acute
--- NOTE | 2018-07-23 18:52 | SOAPPROG ---
SOAP Progress Note Assessment/Plan: Assessment: Plan: Subjective: states she feels better than she thought she would OOB to chair dressings intact foot NVI plan for trnasfer tomorrow Objective: Vital Signs Temp Pulse Resp BP Pulse Ox 36.7 C 98 16 120/72 75 L 07/23/18 16:00 07/23/18 16:00 07/23/18 16:00 07/23/18 16:00 07/23/18 16:00 07/22/18 07/23/18 07/24/18 05:59 05:59 05:59 Intake Total 3200 5200 2300 Output Total 1800 1400 Balance 1400 3800 2300 ICD10 Worksheet Patient Problems: Problems Problem Status Onset Bronchitis Acute Chest pain Acute Epigastric abdominal pain Acute Tachycardia Acute Vomiting Acute
[2018-07-23] MEDS ORDERED: LIDOCAINE 2% VISCOUS 15 ML UDCUP PO PRN (19:28)
[2018-07-23] MEDS: MONTELUKAST SODIUM 10 MG TAB PO SCH (19:53)
--- NOTE | 2018-07-23 22:57 | GCON ---
DATE OF CONSULTATION: 07/23/2018 REFERRING PHYSICIAN: Daphney Bravo MD REASON FOR CONSULTATION: Blood-tinged sputum, mouth lesion. HISTORY OF PRESENT ILLNESS: A 53-year-old female admitted by Dr. Bravo with right femur retained instrumentation. 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 She underwent removal . Was planned for discharge today, however, reported blood-tinged sputum and an ulcer on her lip. She reports history of sinus infections. Prior to coming in , 5 days ago, she had a cough with green sputum production. Some chills. No fevers or sweats. She is chronically short of breath she says from asthma, does not use oxygen at home. No headache or myalgias. REVIEW OF SYSTEMS: I completed a 10-point review of systems, negative except as noted. PAST MEDICAL HISTORY: Anxiety, arthritis, asthma, diabetes, sinusitis, GERD, hypothyroidism. PAST SURGICAL HISTORY: Cholecystectomy, total abdominal hysterectomy, bowel resection, tonsillectomy, adenoid, orthopedic surgeries. FAMILY HISTORY: Noncontributory. SOCIAL: No tobacco, alcohol, or illicits. Lives in [place]. HOME MEDICATIONS: Lispro sliding scale, albuterol as needed, glargine 24 units daily, Singulair 10 at night, Synthroid 88 mcg daily, gabapentin 900 daily, ____ tramadol 50 mg q.6 hours, Xarelto 10 mg daily started here for DVT prophylaxis, Dilaudid, Valium, Tylenol. ALLERGIES: Amoxicillin, azithromycin, latex, tetracycline. PHYSICAL EXAMINATION: VITAL SIGNS: Temperature afebrile, blood pressure 120/72 , respirations 16, 75% on room air. Nurse to clarify. This is an error. HEENT : PERRLA. Oropharynx is clear. Has top inner lip with white ulceration. No pus. No exudate. CV: Regular rate, rhythm. LUNGS: Clear. No wheezing or crackles. ABDOMEN: Soft, nontender, nondistended. Positive bowel sounds. : No Wesley. MUSCULOSKELETAL: 5/5 upper and lower extremity strength. NEURO: 2 through 12 intact. PSYCH: Alert and oriented x3. Chest x-ray pending. ASSESSMENT AND PLAN: 1. Mild hemoptysis: None now. Suspect this is possible bronchitis with being on Xarelto. She is afebrile here, but we will check an x-ray to be thorough. 2. Lip lesion: She thinks she burnt it on hot food. There is no evidence of infection. Provide viscous lidocaine for pain. 3. Diabetes: Resume glargine sliding-scale insulin. 4. Hypothyroidism: Synthroid. 5. Allergies: Singulair. 6. Deep venous thrombosis prophylaxis: Xarelto per Orthopedics. 7. Acute hypoxic resp failure: underlying asthma, CXR pending Thank you for this consultation. We will follow up on x-ray. Please call with any questions but can likely discharge tomorrow. /[id number]/MODL MTDD
[2018-07-24] MEDS: HYDROmorphONE/DILAUDID 4 MG TAB PO PRN ×4 (03:28→13:10)
[2018-07-24] MEDS: DIAZEPAM 2 MG TAB PO PRN ×2 (03:30→09:31)
[2018-07-24] MEDS: traMADol 50 MG TAB PO SCH ×2 (05:13→12:00)
[2018-07-24] MEDS: LEVOTHYROXINE 88 MCG TAB PO SCH (05:13)
[2018-07-24 08:31] VITALS: BP 108/70
[2018-07-24] MEDS: GABAPENTIN 300 MG CAP PO SCH (08:52)
[2018-07-24] MEDS: SENNOSIDES/DOCUSATE SODIUM TAB PO SCH (08:53)
[2018-07-24] MEDS: RIVAROXABAN 10 MG TAB PO SCH (08:53)
[2018-07-24] MEDS: INSULIN GLARGINE SQ SCH (08:54)
[2018-07-24] MEDS: LIXISENATIDE SQ SCH (08:54)
--- NOTE | 2018-07-24 09:38 | HOSPPROG ---
Hospitalist Progress Note Assessment/Plan: Hospitalist consultation follow-up for patient admitted for elective hardware removal from hip DIAGNOSES: * acute hemoptysis * diabetes mellitus, insulin dependent * asthma * hypothyroidism on replacement * anxiety disorder * status post removal of hardware, with ongoing hip pain after prior ORIF with hardware fracture, prior infection PLANS: * ok to go to snf * Continue monitoring blood sugars, continue current management of diabetes * Follow respirations for signs of asthma exacerbation * Current DVT prophylaxis with Xarelto should be continued SUBJECTIVE: No cough, no chest pain, no shortness of breath Ambulating with walker okay No more than her expected pain or swelling in her leg, not increased from yesterday OBJECTIVE Vitals reviewed: Nurses have recorded hypoxemia although I am measuring her at rest sitting on the bedside at 92% with a pulse of 80 right now, and I think the hypoxemic measures obtain by the nurses were probably related to difficulty getting good reading as opposed to actual hypoxemia, otherwise stable vitals Exam: alert oriented relaxed, ambulating in room with walker as I entered skin warm dry color ok resps not labored lungs clear BSs with no wheeze rales or rhonchi, good air movement heart regular abd soft nondistended nontender, bowel sounds present limbs warm, her operated right leg has 2 incisions both of which look good, there is some bruising and edema as expected iv site ok Lab data: Fingerstick sugars all in good range Objective: Vital Signs Temp Pulse Resp BP Pulse Ox 36.8 C 90 16 108/70 87 L 07/24/18 08:00 07/24/18 08:00 07/24/18 08:00 07/24/18 08:00 07/24/18 08:00 07/23/18 07/24/18 07/25/18 06:59 06:59 06:59 Intake Total 5200 3450 Output Total 1400 Balance 3800 3450 ICD10 Worksheet Patient Problems: Problems Problem Status Onset Bronchitis Acute Chest pain Acute Epigastric abdominal pain Acute Tachycardia Acute Vomiting Acute
--- NOTE | 2018-07-24 10:10 | PDIAF ---
- Diagnosis Diagnosis: Right femure removal of instrumentation Code Status: Full Code - Medication Management Discharge Medications: electronically signed and located in the Home Medication List. - Orders Services needed: Registered Nurse, Physical Therapy, Occupational Therapy Diet Recommendation: ADA 2200 consistent carb Diet Texture: Regular Texture Diet Additional Instructions: Continue toe touch weight bearing. PT/OT. Follow up in office in 10 days for repeat evaluation repeat radiograph and wound check. - Labs/Radiology Other Lab Name, Date and Time: check fingerstick glucose before meals and bedtime - Follow Up Care Current Providers and Referrals: Melissa Solis [Primary Care Provider] - Daphney Bravo MD [Medical Doctor] -
[2018-07-24] MEDS: ACYCLOVIR 200 MG CAP PO SCH ×2 (10:43→14:29)
[2018-07-24] MEDS: ONDANSETRON DISINTEGRATING 4 MG TAB PO PRN (12:01)
--- NOTE | 2018-07-24 12:32 | ASMTLACE ---
LACE Length of stay for Answers: 4-6 days current admission Acuity / Level of Answers: No Care: Did the patient have an inpatient admission? Comorbidities - select Answers: Diabetes (uncontrolled or all that apply controlled) Opioid dependence / Chronic pain Other Notes: Diverticulitis; GERD; H TN # of Emergency department Answers: 1-2 visits in the last 6 months Score: 11 Date Signed: 07/24/2018 12:32 PM Electronically Signed By:EDSON Colbert
--- NOTE | 2018-07-24 12:33 | ASMTCMCOM ---
CM Note CM Note Notes: Pt medically stable for d/c to [facility]. Orders sent in Allscripts. Batsheva scheduled transport for 14:30. TRISH Sosa to call report. Date Signed: 07/24/2018 12:32 PM Electronically Signed By:EDSON Colbert
--- NOTE | 2018-07-24 15:56 | ASDISCHSUM ---
Discharge Information Plan Status:SNF Medically Cleared to Leave: Discharge Date:07/24/2018 02:35 PM CM D/C Disposition: ADT D/C Disposition:Fpc Facility Projected Discharge Date:07/22/2018 11:00 AM Transportation at D/C: Discharge Delay Reason: Follow-Up Date:07/22/2018 11:00 AM Discharge Slot: Final Diagnosis: Placement Information Referral Type:*Skilled Nursing/SNF Referral ID:[id number] Provider Name:[facility] Address 1:[address] Address 2: City:[place] Selection Factors: State:[place] Patient Contact Information Contact Name:PERI Relationship:Son Address: Home Phone: City:[facility] Phone: [facility] Code:[place] Email: Financial Information Financial Class:[employer] [facility] Primary Plan Number:[id number] Secondary Plan Desc: Secondary Plan Number: Assessment Information LACE LACE Length of stay for Answers: 4-6 days current admission Acuity / Level of Answers: No Care: Did the patient have an inpatient admission? Comorbidities - select Answers: Diabetes (uncontrolled or all that apply controlled) Opioid dependence / Chronic pain Other Notes: Diverticulitis; GERD; H [place] # of Emergency department Answers: 1-2 visits in the last 6 months Score: 11 Date Signed: 07/24/2018 12:32 PM Electronically Signed By:EDSON Colbert [facility] CM Progress Note CM Note CM Note Notes: Pt s/p R femur hardware removal. PT/OT rec SNF. Pt clinically accepted at [facility], awaiting insurance authorization. D/c plan of care: [facility] when medically stable and insurance auth obtained Date Signed: 07/22/2018 10:33 AM Electronically Signed By:EDSON Colbert [facility] CM Progress Note CM Note CM Note Notes: Everything worked out with insurance and Estefania has auth pt for d/c today. In the afternoon pt reported coughing up blood with sputum. Hospitalist to consult to medically clear pt, this will not happen in time for d/c today. [facility] and will be able to take pt tomorrow if medically stable. Date Signed: 07/23/2018 04:03 PM Electronically Signed By:EDSON Colbert [facility] CM Progress Note CM Note CM Note Notes: Pt medically stable for d/c to [facility]. Orders sent in Allscripts. Batsheva scheduled transport for 14:30. TRISH Sosa to call report. Date Signed: 07/24/2018 12:32 PM Electronically Signed By:EDSON Colbert Intervention Information
== END 2018-07-24 14:35 ==
LOC: F3N 07:50
PROVIDERS: ADMIT Orthopaedic Surgery; ATTEND Orthopaedic Surgery
PROC: 0QP604Z Removal of Internal Fixation Device from Right Upper Femur, Open Approach (ICD-10-PCS; principal; 2018-07-20 09:15)
PROC: BQ13ZZZ Fluoroscopy of Right Femur (ICD-10-PCS; principal; 2018-07-20 09:15)
PROC: 0QUB07Z Supplement Right Lower Femur with Autologous Tissue Substitute, Open Approach (ICD-10-PCS; principal; 2018-07-20 09:15)
DX: T84.84XA Pain due to internal orthopedic prosthetic devices, implants and grafts, initial encounter (principal); M25.551 Pain in right hip; R04.2 Hemoptysis; K13.0 Diseases of lips; E11.9 Type 2 diabetes mellitus without complications; E03.9 Hypothyroidism, unspecified; J45.909 Unspecified asthma, uncomplicated; F41.9 Anxiety disorder, unspecified
CPT/HCPCS: 20680; 71045; 76001; 97116; 97161; 97165; 97535; G0378; C1713; C1762; J1100; J1170; J1885; J2250; J2270; J2370; J2405; J2704; J3010

== ENCOUNTER 2018-08-04 18:49 | Inpatient (IN) | payer OTHER ==
[2018-08-04] MEDS ORDERED: NS 1,000 ML IV ONE (19:10)
[2018-08-04] MEDS ORDERED: HYDROmorphONE/DILAUDID 2 MG/ML INJ IVP ONE ×2 (19:10→21:27)
--- NOTE | 2018-08-04 19:13 | EDPHY ---
H & P Time Seen by Provider: 08/04/18 18:58 HPI/ROS: Chief complaint. 53-year-old female with recent hardware removal of the right hip and femur from a previous fracture that had a kiara and had become painful. Hardware removal was July 20. Today the patient was in her wheelchair and caught her foot and it jerked around and she has pain especially to the right hip but radiating down to the right knee. No other injuries. She had been well until the incident occurred earlier today. Painful range of motion. Can' t stand. HPI. [onset, timing, severity, modifying factors, similar symptoms previously, recently seen] ROS 10 systems were reviewed and negative with the exception of the elements mentioned in the history of present illness Past Medical/Surgical History: Hysterectomy, GERD, diabetes, diverticulitis, hypertension, dyslipidemia, kidney stones, recent hardware removal right femur Social History: Single, nonsmoker, no alcohol Smoking Status: Former smoker Physical Exam: General Appearance: Alert pleasant well-developed female moderate distress vital signs stable Eyes: Pupils equal and round no pallor or injection. ENT, Mouth: Mucous membranes are moist. Respiratory: There are no retractions, lungs are clear to auscultation. Cardiovascular: Regular rate and rhythm. Gastrointestinal: Abdomen is soft and nontender, no masses, bowel sounds normal. Neurological: Awake and alert, sensory and motor exams grossly normal. Skin: Warm and dry, no rashes. Musculoskeletal: Neck is supple nontender. Extremities pain posterior right hip and right hip with range of motion. Pain down to the right knee. No obvious deformity. Distal motor vascular sensitivity is intact Psychiatric: Patient is oriented X 3, there is no agitation. Constitutional: Initial Vital Signs Temperature (C) 37.1 C 08/04/18 19:00 Heart Rate 99 08/04/18 19:00 Respiratory Rate 18 08/04/18 19:00 Blood Pressure 130/75 H 08/04/18 19:00 O2 Sat (%) 96 08/04/18 19:00 O2 Delivery Mode Room Air Allergies/Adverse Reactions: amoxicillin Allergy (Verified 08/04/18 18:57) Hives azithromycin Allergy (Verified 08/04/18 18:57) Hives latex Allergy (Verified 08/04/18 18:57) Hives Sulfa (Sulfonamide Antibiotics) Allergy (Verified 08/04/18 18:57) tetracycline Allergy (Verified 08/04/18 18:57) Hives Home Medications: Medication Instructions Recorded Montelukast Sodium [Singulair 10 10 mg PO HS 02/21/17 mg (*)] Gabapentin [Neurontin 300 MG (*)] 600 mg PO DAILY16 07/12/18 Gabapentin [Neurontin 300 MG (*)] 900 mg PO DAILY 07/12/18 Insulin Glargine/Lixisenatide 24 units SQ DAILY 07/12/18 [Soliqua 100 Unit-33 Mcg/ml Pen] Levothyroxine [Synthroid 88 mcg 88 mcg PO DAILY06 07/12/18 (*)] Albuterol [Proventil Inhaler HFA 1 - 2 puffs IH Q4H PRN 07/13/18 (*)] Acetaminophen [Tylenol 325mg (*)] 325 - 650 mg PO Q4HRS PRN tab 07/21/18 Insulin Lispro [Humalog Kwikpen 0 unit SQ TIDMEAL PRN 07/21/18 U-100] Rivaroxaban [Xarelto 10mg (*)] 10 mg PO DAILY tab 07/23/18 traMADol [Ultram 50 mg (*)] 50 mg PO Q6HRS tab 07/23/18 Acyclovir [Zovirax 200 mg (*)] 200 mg PO 5XD #25 cap 07/24/18 Flexeril 10 MG (*) 08/04/18 Medical Decision Making - Diagnostics Imaging Results: Imaging Impressions Hip X-Ray 08/04/18 19:06 Impression: Right hip negative for acute fracture. Right Femur, Four Views Clinical Indications: Pain following trauma. Findings: There is a vertically-oriented lucency involving the distal shaft of the femur, and there is also associated cortical disruption consistent with an acute fracture superimposed upon old postoperative changes in a patient with a history of an intramedullary kiara, which was removed. There is thickening of the cortex of the upper femur consistent with a healed fracture. Impression: Acute fracture superimposed upon old posttraumatic and postoperative changes. Right Knee, Four Views Clinical Indications: Pain following trauma. Findings: A fracture or other acute osseous abnormality of the right knee is not identified. The bone alignment is normal. A joint effusion is seen. Impression: The right knee is negative for an acute fracture. Results discussed with Melecio Altamirano M.D., on August 04, 2018 at 2052. Knee X-Ray 08/04/18 19:06 Impression: Right hip negative for acute fracture. Right Femur, Four Views Clinical Indications: Pain following trauma. Findings: There is a vertically-oriented lucency involving the distal shaft of the femur, and there is also associated cortical disruption consistent with an acute fracture superimposed upon old postoperative changes in a patient with a history of an intramedullary kiara, which was removed. There is thickening of the cortex of the upper femur consistent with a healed fracture. Impression: Acute fracture superimposed upon old posttraumatic and postoperative changes. Right Knee, Four Views Clinical Indications: Pain following trauma. Findings: A fracture or other acute osseous abnormality of the right knee is not identified. The bone alignment is normal. A joint effusion is seen. Impression: The right knee is negative for an acute fracture. Results discussed with Melecio Altamirano M.D., on August 04, 2018 at 2051. Femur X-Ray 08/04/18 19:10 Impression: Right hip negative for acute fracture. Right Femur, Four Views Clinical Indications: Pain following trauma. Findings: There is a vertically-oriented lucency involving the distal shaft of the femur, and there is also associated cortical disruption consistent with an acute fracture superimposed upon old postoperative changes in a patient with a history of an intramedullary kiara, which was removed. There is thickening of the cortex of the upper femur consistent with a healed fracture. Impression: Acute fracture superimposed upon old posttraumatic and postoperative changes. Right Knee, Four Views Clinical Indications: Pain following trauma. Findings: A fracture or other acute osseous abnormality of the right knee is not identified. The bone alignment is normal. A joint effusion is seen. Impression: The right knee is negative for an acute fracture. Results discussed with Melecio Altamirano M.D., on August 04, 2018 at 2051. X-ray right hip, femur, knee reviewed by me and discussed with shows an acute fracture of the mid femur. Procedures: IV normal saline. Dilaudid for pain ED Course/Re-evaluation: Re-evaluation patient is stable. She and I discussed imaging study results, treatment plan including recommendation for admission. She expresses understanding and agreement I consulted and discussed with Dr. Parsons who sees the patient in the ED I consulted discussed case with , hospitalist who agrees to the admission Differential Diagnosis: Patient 2 weeks ago had femur kiara removed. Minor twisting trauma today with resultant midshaft femur fracture that is closed. No evidence of hip fracture - Data Points Medications Given: Discontinued Medications Hydromorphone HCl (Dilaudid) 0.5 mg IVP EDNOW ONE Stop: 08/04/18 19:11 Last Admin: 08/04/18 19:43 Dose: 0.5 mg Sodium Chloride (Ns) 1,000 mls @ 0 mls/hr IV EDNOW ONE; Wide Open PRN Reason: Protocol Stop: 08/04/18 19:11 Last Admin: 08/04/18 19:43 Dose: 1,000 mls Departure - Departure Disposition: [facility] Inpatient Acute Clinical Impression: Femur fracture, right Qualifiers: Encounter type: initial encounter Femur location: shaft Fracture type: closed Fracture morphology: spiral Fracture alignment: nondisplaced Qualified Code(s): S72.344A - Nondisplaced spiral fracture of shaft of right femur, initial encounter for closed fracture Condition: Fair Referrals: Patient,NotPresent [Primary Care Provider] - As per Instructions
[2018-08-04] MEDS ORDERED: HYDROmorphONE/DILAUDID 2 MG/ML INJ ONE (21:17)
[2018-08-04] MEDS ORDERED: ACYCLOVIR 400 MG TAB PO ONE (21:51)
[2018-08-04] MEDS ORDERED: diphenhydrAMINE 25 MG CAP PO PRN (23:32)
[2018-08-04] MEDS ORDERED: ACETAMINOPHEN 325 MG TAB PO PRN (23:32)
[2018-08-04] MEDS ORDERED: ONDANSETRON 4 MG/2 ML VIAL IVP PRN (23:32)
[2018-08-04] MEDS ORDERED: ONDANSETRON DISINTEGRATING 4 MG TAB PO PRN (23:32)
[2018-08-04] MEDS ORDERED: NS 1,000 ML IV SCH (23:45)
[2018-08-04] MEDS: HYDROCODONE/APAP 5/325 TAB PO PRN (23:59)
--- NOTE | 2018-08-05 | GCON ---
I was asked to see and evaluate the patient by the emergency room. HISTORY OF PRESENT ILLNESS: The patient underwent a right femur ORIF femoral nail approximately 40 y ears ago for fracture. About 15 days ago she had this removed by Dr. Daphney Bravo. At this time I do n ot have a lot of further details regarding the operation, but the patient reports that the operation was a little more difficult than expected and may have resulted in a fracture of the femur. However, the patient was nonweightbearing in the interim and had been discharged to a rehabilitation facility . Of note, she reports having been treated for osteomyelitis on multiple occasions in the past for t his fracture. On physical exam, the leg has surgical incisions which are clean, dry, and well healing. The rotatio n of the leg is identical to the contralateral side. She has no gross sensory, motor, or vascular de ficits. The range of motion of the leg is deferred secondary to pain. I reviewed the x-rays. They demonstrate remodeling calluses throughout the right femur. There does appear to be an acute or suba cute fracture of the right distal femur along the metaphysis and distal diaphysis. It is difficult t o tell if this was an intraoperative event versus postoperative event. Based on the patient's twisti ng mechanism of injury, I do not think it is likely that this was sustained recently. This may have been a result of the fracture consistent with the patient's story regarding the fracture pattern. IMPRESSION: Right distal femur fracture, status post removal of instrumentation through the intramed ullary nail. ASSESSMENT AND PLAN: At this point, we would like to be in touch with Dr. Bravo before moving forward with any sort of operative treatment or discussion. I have attempted to get hold of Dr. Bravo, but a t this time I have been unable to do so at this point. I will discuss with him further regarding bes t management. I think the details of the surgery, surgical procedure, and any intraoperative finding s would be invaluable in moving forward with treatment for this patient. Dr. Bravo may elect for cons ervative care versus surgery instrumentation of the right femur, but at this time I feel obligated to wait for him to discuss this further. I would ask that antibiotics be held, the patient be made non weightbearing, and that she be made n.p.o. for now in case operative fixation is discussed. I will b e in touch with the medical service in the morning regarding the final plans for this patient. Thank you again for this consultation. Please do not hesitate to contact me directly regarding this patient's care. My cell phone can be reached at [phone]. /[id number]/MODL
[2018-08-05] MEDS ORDERED: METHOCARBAMOL 1,000 MG in NS 50 ML IVP ONE (04:39)
[2018-08-05 05:37] LABS: PLATELET COUNT 357 10^3/uL (150-400)
[2018-08-05] MEDS: CYCLOBENZAPRINE 10 MG TAB PO PRN (05:56)
--- NOTE | 2018-08-05 07:15 | GHP ---
DATE OF ADMISSION: 08/04/2018 SOURCE: Patient provides history, appears reliable. EMR was reviewed and case discussed with the accepting hospitalist. CHIEF COMPLAINT: Severe right upper leg pain. HISTORY OF PRESENT ILLNESS: This is a very pleasant 53-year-old female with past medical history significant for chronic pain related to right femur fracture that had a kiara placed in 40 years ago and recently in the last 2 weeks had this removed. Hypothyroidism, osteomyelitis, anxiety, recurrent right femur fracture, diabetes type 2, alcohol dependence, sigmoid , diverticulosis, chronic right leg pain, kidney stones, hyperlipidemia, hypertension, GERD, asthma, right hip necrosis. Patient reports that on 07/20/2018, patient underwent elective procedure here at [facility] for hardware removal with a kiara out of her right femur. The patient does have a history of this kiara being placed 40 years ago due to injury. Since that time, she has complications including osteomyelitis with multiple antibiotics. The patient was discharged to a skilled care facility for additional assistance as she had decreased mobility. She is primarily wheelchair bound there as she is nonweightbearing on that right leg. Patient denies any injury, but she reports that she was sitting in her chair and she suddenly felt severe pain. Her symptoms progressively worsened. She could not tolerate waiting every 6 hours for her Oxy and she presented to the emergency department for additional evaluation. Patient, prior to her arrival, had been in connection with Dr. Bravo who performed the surgery and removal of the kiara. As he is quite familiar with her complicated orthopedic history, the patient was requesting that before considering operative repair that additional discussions with Dr. Bravo occur. The patient had discussed this with Dr. Parsons. Per his report, he is attempting to contact Dr. Bravo directly for additional recommendations and plans for care. REVIEW OF SYSTEMS: GENERAL: Negative for fevers, chills, but patient reports that today she has been feeling increasingly hot in the evening. SKIN: No new rashes or sores. ENT: Patient reports feeling sore in the right lateral leg and at the site of incision. Dry mouth. EYES: No acute changes in vision or ocular pain. CV: No chest pain or palpitations. RESPIRATORY: No shortness of breath or cough. GI: No nausea, vomiting, or diarrhea. : No dysuria or hematuria. Patient reports recent history of declining urine output. MUSCULOSKELETAL: Right leg pain. Remainder of extremities without complaints of pain. NEURO: Patient nonfocal. Denies any numbness, tingling. ALLERGIES: Amoxicillin, azithromycin, latex and tetracycline. HOME MEDICATIONS: As per EMR: Alprazolam 0.5 mg p.o. daily p.r.n., Oxy IR 5 mg p.o. q.3 hours p.r.n., tramadol 50 mg p.o. q.6 hours p.r.n., Xarelto 10 mg p.o. daily, montelukast 10 mg p.o. h.s., insulin KwikPen sliding scale, acyclovir 200 mg p.o. 5 times daily, levothyroxine 88 mcg p.o. daily, Soliqua 24 units subcu daily, gabapentin, albuterol 1-2 puffs inhaled q.4 hours p.r.n. FAMILY HISTORY: Significant for father with PAD, CAD and MS. Mother with history of thyroid disease, Hodgkin lymphoma and ovarian cancer. PAST SURGICAL HISTORY: Significant for neck surgery, bowel resection, right femur ORIF with history of revisions and kiara removal, cholecystectomy, tonsillectomy and adenoidectomy and total abdominal hysterectomy and bilateral salpingo-oophorectomy. SOCIAL HISTORY: Patient denies any tobacco, drugs, or alcohol. CODE STATUS: Full. PHYSICAL EXAMINATION: VITAL SIGNS: Upon arrival to the emergency department, blood pressure 130/75, heart rate 99, respiratory rate 18, O2 saturation 96% on room air, temperature 37.1. Currently available vitals, blood pressure 108/61, heart rate is 95, respiratory rate 16, O2 saturation is 91% on room air with temperature of 36.6. GENERAL: No acute distress. Very pleasant adult female is lying quietly in bed. She is not in acute distress, but she does lie there uncomfortably. HEAD: Normocephalic, atraumatic. EYES: Extraocular muscles are grossly intact. Some photosensitivity is present. Pupils equal, round. Decreased reactivity to light bilaterally, but symmetric. No scleral icterus or conjunctival injection. ENT: Mucous membranes appear slightly dry. No oropharyngeal erythema. Dentition intact. NECK: Supple. Trachea midline. CV : Regular rate and rhythm. No murmurs, rubs, or gallops appreciated. RESPIRATORY: Lungs are clear to auscultation bilaterally. No wheezes, rales, or rhonchi appreciated. Unlabored breathing. ABDOMEN: Positive bowel sounds. Soft, nontender to palpation. No rebound, guarding, or masses appreciated. : No suprapubic tenderness to palpation. No Wesley catheter in place. MUSCULOSKELETAL: Generalized deconditioning and weakness. NEURO: Grossly nonfocal. No facial drooping. Moves all extremities. PSYCH: Patient is pleasant, cooperative, slightly anxious, but she is not agitated. LABORATORY STUDIES: WBC 6.9, H and H is 10.3 and 31.4, MCV 89.2, platelet count is 357, neutrophil percent is 37.6, no bands. Sodium 140, potassium 3.9, chloride 106, CO2 is 26, anion gap 8, BUN is 12, creatinine 0.5, GFR greater than 60, glucose is 108, calcium is 8.8. Hip x-ray imaging and report reviewed by me. Right hip 3-view showing femoral head well rounded, normally located. Negative hip for acute fracture. Right femur 4-view: Vertically oriented lucency involving the distal shaft of the femur. There is also associated cortical disruption consistent with acute fractures changes in a patient with history of intramedullary kiara which was removed. Thickening of cortex upper femur consistent with healed fracture. Chest x-ray: Peribronchial wall thickening seen bilaterally. Heart size within normal limits. Negative for consolidation, pleural effusion, pneumothorax. Probable underlying bronchitis. ASSESSMENT AND PLAN: Stone 53-year-old female with a complicated orthopedic history involving her right leg, status post a kiara placement 40 years ago, complicated by osteomyelitis with recent removal of hardware 2 weeks ago, now with complaints of severe pain. 1. Acute fracture of the distal shaft of the femur with acute fracture superimposed upon old posttraumatic and postoperative changes. hoda. Dr. Parsons with Orthopedics has evaluated the patient. Patient is normally followed by Dr. Bravo who recently removed patient's kiara 2 weeks ago. Attempts are being made to contact him for further thoughts and recommendations on plan of treatment or surgery. 2. Acute on chronic pain. Patient chronically on narcotic therapy. Continue with Oxy and add lorazepam. The patient reports that muscle relaxers seem to work best for her pain. Patient unable to receive IV Robaxin while she is n.p.o. currently due to latex being present in the suspension. Flexeril has been ordered p.r.n. once diet is advanced. 3. Anemia, likely of chronic disease. No evidence of active bleeding. 4. Chronic medical issues. 5. Iatrogenic hypothyroidism. Resume patient's supplementation when diet is advanced. I did discuss with the patient and her option to supplement the levothyroxine IV half dose, but they will continue to wait until his diet is advanced. 6. Diabetes type 2. Resume home medications. Currently blood sugars are adequate. May need to consider additional monitoring and sliding scale. 7. Asthma. Continue nebulizer. 8. Sigmoid diverticulosis. Encourage fiber intake. 9. Hyperlipidemia. Continue statin. 10. Benign essential hypertension, not currently on medications. Continue to monitor closely. Current blood pressures are low, receiving transfusion. 11. Fluid, electrolyte, nutrition. IV fluids for gentle IV fluid hydration. 12. Electrolytes adequate at this time. Replace if needed. 13. Diet: N.p.o. 14. Prophylaxis: SCDs. Holding anticoagulation setting of acute bleed. 15. Code status: Full. 16. Disposition: Patient is admitted to med surg floor pending orthopedic assessment and plan of care. Given the severity of the fracture and multiple issues revolving around this right leg, the patient has been admitted to inpatient status. Anticipate greater than 2 midnight stay. /[id number]/MODL MTDD
[2018-08-05] MEDS: HYDROCODONE/APAP 5/325 TAB PO PRN (08:50)
[2018-08-05] MEDS ORDERED: ALBUTEROL 60 PUFFS/8 GM MDI IH PRN (08:55)
--- NOTE | 2018-08-05 09:01 | HOSPPROG ---
Hospitalist Progress Note Assessment/Plan: Maryellen is a 53 y/o female w has a complicated orthopedic surgery involving her r leg. She is /sp a kiara replacement 40 years ago c/b osteomyleitis and now w recent removal of hardware 2 weeks ago. She presented to the ER w severe pain in her leg. *Acute fx of the distal shaft of the femur s/p removal of instrumentation -Dr Parsons saw her and evaluated her, reviewed her care w him, ok to TTWB for now, he will follow. -surgery on hold for now, she is willing to have another surgeon do her surgery if Dr Bravo is not available *acute on chronic pain -on chronic oxy IR, gabapentin -on Flexeril -scheduled Tylenol *anemia -follow *iatrogenic hypothyroidism -Synthroid *DM2 -resumed long acting, sliding scale -will place on ADA diet, but patient would love a regular diet due to it being Thanksgiving *asthma -nebs *HLD -statin *HTN -bp stable *dvt prophylaxis: will give her LMWH today (has been on Xarelto) *Plan: will await further input in regards to surgery, will have her eat today, stop fluids, initiate lovenox, > 30 minutes following up tanner Bojorquez and coordinating her care. Subjective: Maryellen said her pain is mainly up in the right hip area. Objective: Vital Signs Temp Pulse Resp BP Pulse Ox 36.4 C 89 18 121/65 H 96 08/05/18 07:42 08/05/18 07:42 08/05/18 07:42 08/05/18 07:42 08/05/18 07:42 Laboratory Results 08/05/18 05:00 08/05/18 05:00 08/04/18 08/05/18 08/06/18 05:59 05:59 05:59 Intake Total 100 Output Total 1100 Balance -1000 - Physical Exam Constitutional: appears nourished, uncomfortable Eyes: PERRL Ears, Nose, Mouth, Throat: hearing normal Cardiovascular: regular rate and rhythym Respiratory: no respiratory distress Gastrointestinal: normoactive bowel sounds Skin: other (right gluteal area wound without drainage, minimal redness) Musculoskeletal: muscular tenderness (right gluteus,hip), generalized weakness Neurologic: AAOx3 Psychiatric: interacting appropriately ICD10 Worksheet Patient Problems: Problems Problem Status Onset Femur fracture, right Acute Bronchitis Acute Chest pain Acute Epigastric abdominal pain Acute Tachycardia Acute Vomiting Acute
[2018-08-05] MEDS: GABAPENTIN 300 MG CAP PO SCH ×2 (09:39→16:28)
[2018-08-05] MEDS ORDERED: oxyCODONE IR 5 MG TAB PO PRN (09:44)
[2018-08-05] MEDS ORDERED: D50W 25 GM/50 ML SYR IVP PRN (09:45)
[2018-08-05] MEDS ORDERED: ACYCLOVIR 200 MG CAP PO PRN (10:00)
--- NOTE | 2018-08-05 10:12 | ASMTCMCOM ---
CM Note CM Note Notes: Chart reviewed for discharge planning purposes. Patient recently here for hardware removal and presents with pain after twisting. Distal femur fracture on xray and it is uncertain if it is a new or old fracture. Orthopedics consulted. CM to follow for needs. It appears she was at [facility] rehab. CM to follow for needs, Date Signed: 08/05/2018 10:11 AM Electronically Signed By:Alberta Garcia RN
[2018-08-05] MEDS: traMADol 50 MG TAB PO SCH ×3 (12:30→23:04)
[2018-08-05] MEDS: INSULIN LISPRO 100 UNIT/ML SC SCH ×2 (12:30→17:25)
[2018-08-05] MEDS: ENOXAPARIN 40 MG/0.4 ML SYR SC SCH (14:07)
[2018-08-05] MEDS: oxyCODONE IR 5 MG TAB PO PRN ×2 (14:25→19:49)
[2018-08-05] MEDS: ACETAMINOPHEN 500 MG TAB PO SCH ×2 (14:25→23:02)
[2018-08-05] MEDS ORDERED: BISACODYL 10 MG SUPP PR PRN (16:11)
[2018-08-05] MEDS ORDERED: LACTULOSE 20 GM/30 ML UDCUP PO PRN (16:11)
[2018-08-05] MEDS: POLYETHYLENE GLYCOL 3350 17 GM PKT PO PRN (16:28)
--- NOTE | 2018-08-05 19:50 | SOAPPROG ---
SOAP Progress Note Assessment/Plan: I sas and evaluated the patient at the bedside this morning. Since my last consultation note, I have discuswed he3r case with Dr. Daphney Bravo. Patient states that she has had a steady amount of pain since last night, and is currently being treated with a BUYER GRAIN. PE RLE is grossly the same rotation and length as the contralateral side No sensory, motor, or vascular deficits are noted. Plan Based on the reviewed the images reviewed with Dr. Bravo, and feels that the medial bone loss present occurred during the procedure, and there is not a new fracture from her incident yesterday. At this point, the plan remains: TTWB RLE , dvt ppx per primary team, ortho will follow. I will be away from [place] until Thursday. Until then, the O call pager may be contacted directly at [phone] Thank you to the medical service for providing excellent care for this patient. I may be reached at any time for patient questions or clarification. [phone]. Jaqueline Objective: Vital Signs Temp Pulse Resp BP Pulse Ox 36.6 C 83 18 111/57 L 94 08/05/18 15:34 08/05/18 15:34 08/05/18 15:34 08/05/18 15:34 08/05/18 15:34 Laboratory Results 08/05/18 05:00 08/05/18 05:00 08/04/18 08/05/18 08/06/18 05:59 05:59 05:59 Intake Total 100 850 Output Total 1100 1750 Balance -1000 -900 ICD10 Worksheet Patient Problems: Problems Problem Status Onset Femur fracture, right Acute Bronchitis Acute Chest pain Acute Epigastric abdominal pain Acute Tachycardia Acute Vomiting Acute
[2018-08-05] MEDS: MONTELUKAST SODIUM 10 MG TAB PO SCH (20:12)
[2018-08-05] MEDS: SENNOSIDES/DOCUSATE SODIUM TAB PO SCH (20:12)
[2018-08-05] MEDS: ALPRAZolam 0.25 MG TAB PO PRN (23:56)
[2018-08-06] MEDS: oxyCODONE IR 5 MG TAB PO PRN ×5 (00:20→22:11)
[2018-08-06] MEDS: LEVOTHYROXINE 88 MCG TAB PO SCH (05:01)
[2018-08-06] MEDS: traMADol 50 MG TAB PO SCH ×3 (05:02→18:11)
[2018-08-06] MEDS: ACETAMINOPHEN 500 MG TAB PO SCH ×3 (05:03→22:14)
[2018-08-06] MEDS: CYCLOBENZAPRINE 10 MG TAB PO PRN (05:09)
[2018-08-06] MEDS: INSULIN LISPRO 100 UNIT/ML SC SCH ×3 (07:51→18:09)
[2018-08-06] MEDS: LORazepam 0.5 MG TAB PO PRN ×2 (08:19→22:15)
[2018-08-06] MEDS: MAGNESIUM HYDROXIDE 30 ML UDCUP PO PRN (08:19)
[2018-08-06] MEDS: GABAPENTIN 300 MG CAP PO SCH ×2 (08:20→15:31)
[2018-08-06] MEDS: SENNOSIDES/DOCUSATE SODIUM TAB PO SCH ×2 (08:20→22:15)
[2018-08-06] MEDS: INSULIN GLARGINE 100 UNITS/ML UNIT SC SCH (08:21)
--- NOTE | 2018-08-06 08:49 | HOSPPROG ---
Hospitalist Progress Note Assessment/Plan: Maryellen is a 53 y/o female w has a complicated orthopedic surgery involving her r leg. She is /sp a kiara replacement 40 years ago c/b osteomyelitis and now w recent removal of hardware 2 weeks ago. She presented to the ER w severe pain in her leg. *Acute fx of the distal shaft of the femur s/p removal of instrumentation - Dr Parsons reviewed the images reviewed with Dr. Bravo, and feels that the medial bone loss present occurred during the procedure, and there is not a new fracture from her incident yesterday. -the plan remains: TTWB RLE, dvt ppx per primary team, ortho will follow. -have left a message for Dr Bravo to call the patient if able, also have asked Dr Santana to let me know when he rounds -she is upset and feels she is misdiagnosed and wants it fixed -? if ortho is recommending a CT scan for more evaluation, her pain is mainly in her piriformis area *acute on chronic pain -on chronic oxy IR, gabapentin -on Flexeril -scheduled Tylenol *anemia -follow *iatrogenic hypothyroidism -Synthroid *DM2 -resumed long acting, sliding scale -will place on ADA diet, but patient would love a regular diet due to it being Thanksgiving *asthma -nebs *HLD -statin *HTN -bp stable *dvt prophylaxis: will give her LMWH *Plan: will meet w the patient w Dr Santana. Have asked the community assistant to contact patient rep to see, she's upset. Subjective: Maryellen is upset and says she is having pain in right gluteus area. Objective: Vital Signs Temp Pulse Resp BP Pulse Ox 36.4 C 72 18 95/46 L 100 08/06/18 07:46 08/06/18 07:46 08/06/18 07:46 08/06/18 07:46 08/06/18 07:46 Laboratory Results 08/05/18 05:00 08/05/18 05:00 08/05/18 08/06/18 08/07/18 05:59 05:59 05:59 Intake Total 100 1300 Output Total 1100 2950 Balance -1000 -1650 - Physical Exam Constitutional: no apparent distress, uncomfortable, No not in pain Eyes: PERRL Ears, Nose, Mouth, Throat: hearing normal Cardiovascular: regular rate and rhythym Respiratory: no respiratory distress Gastrointestinal: normoactive bowel sounds Skin: warm, other (evalauated incision from previous surgery, site clear, well healed) Musculoskeletal: muscular tenderness (over the si joint, periformis area) Neurologic: AAOx3 Psychiatric: anxious ICD10 Worksheet Patient Problems: Problems Problem Status Onset Femur fracture, right Acute Bronchitis Acute Chest pain Acute Epigastric abdominal pain Acute Tachycardia Acute Vomiting Acute
--- NOTE | 2018-08-06 09:58 | ASMTCMCOM ---
CM Note CM Note Notes: Pt wants to return to [facility], requests same bed and referral sent in [employer]. Date Signed: 08/06/2018 09:58 AM Electronically Signed By:EDSON Colbert
--- NOTE | 2018-08-06 11:01 | ASMTCMCOM ---
CM Note CM Note Notes: Batsheva with [facility] reports they can accept pt back but will need new insurance auth, [employer] insurance closed until Thursday. Pt will need PT/OT ordered, this CM alerted hospitalist Gregorio. Could not update pt because she was soundly sleeping. CM to follow. Date Signed: 08/06/2018 11:00 AM Electronically Signed By:EDSON Colbert
[2018-08-06] MEDS: ENOXAPARIN 40 MG/0.4 ML SYR SC SCH (12:15)
--- NOTE | 2018-08-06 13:19 | SOAPPROG ---
SOAP Progress Note Assessment/Plan: Assessment: 53-year-old female 2 and half weeks status post right femur hardware removal for femoral osteomyelitis. Presents with new pain after a twisting injury well in her wheelchair after her contralateral foot got stuck underneath. Severe pain in the buttock which is new. Femur and knee pain is unchanged since postop. Does note numbness and tingling in her right foot as well as weakness. Denies changes in bowel or bladder habits. Plan: Touch toe weight-bearing to the right lower extremity, PT OT DVT prophylaxis per primary Analgesia: Oxycodone p.o., Flexeril, gabapentin MRI without contrast of the lumbosacral spine to evaluate for neural compression. May consider CT scan of the hip/femur if MRI of the spine his unremarkable 08/06/18 13:17 08/06/18 13:20 Subjective: Patient is frustrated. Feels though she has been told different things by each doctor. She is unclear on her current diagnosis. She is in severe pain. Pain in her femur and thigh are unchanged since the immediately postoperative. Her new pain is located in the right buttock. She does note numbness and tingling in the foot and toes more so on the top of the foot. She denies changes in bowel or bladder habits. Objective: Vital Signs Temp Pulse Resp BP Pulse Ox 36.4 C 72 18 95/46 L 100 08/06/18 07:46 08/06/18 07:46 08/06/18 07:46 08/06/18 07:46 08/06/18 07:46 Laboratory Results 08/05/18 05:00 08/05/18 05:00 08/05/18 08/06/18 08/07/18 05:59 05:59 05:59 Intake Total 100 1300 Output Total 1100 2950 Balance -1000 -1650 Awake in moderate distress Easy nonlabored breathing Right lower extremity incisions clean dry intact no erythema drainage or signs of infection tenderness to light touch throughout the length of the femur tenderness to palpation over the greater trochanter as well as in the deep gluteal space. Pain with logroll Sensation intact to light touch in S1 and L4, subjective decreased sensation in the L5 distribution Weakness with EHL compared to the contralateral side palpable DP PT pulses - Time Spent With Patient Time Spent With Patient: 20 ICD10 Worksheet Patient Problems: Problems Problem Status Onset Femur fracture, right Acute Bronchitis Acute Chest pain Acute Epigastric abdominal pain Acute Tachycardia Acute Vomiting Acute
--- NOTE | 2018-08-06 13:59 | PDMN ---
Medical Necessity Medical necessity: [facility] Musculoskeletal Disease: 53 yo w/ severe pain, dx w / acute fracture distal shaft R femur and acute fracture superimposed upon old posttraumatic and post op changes, complicated by osteomyelitis w/ recent removal of hardware 2 weeks ago. Ortho consults, PT/OT consults, Opioids for pain management. Admit to IP status Pt w/ hx complicate ortho surg involving RLE, DM, HTN, asthma, R hip necrosis.
[2018-08-06] MEDS: CYCLOBENZAPRINE 10 MG TAB PO SCH ×2 (15:30→22:17)
[2018-08-06] MEDS: MONTELUKAST SODIUM 10 MG TAB PO SCH (22:15)
[2018-08-07] MEDS: oxyCODONE IR 5 MG TAB PO PRN ×6 (02:20→21:23)
[2018-08-07] MEDS: traMADol 50 MG TAB PO SCH ×4 (02:31→17:51)
[2018-08-07] MEDS: POLYETHYLENE GLYCOL 3350 17 GM PKT PO PRN (05:19)
[2018-08-07] MEDS: LEVOTHYROXINE 88 MCG TAB PO SCH (05:21)
[2018-08-07] MEDS: ACETAMINOPHEN 500 MG TAB PO SCH ×3 (05:23→21:32)
[2018-08-07] MEDS: INSULIN LISPRO 100 UNIT/ML SC SCH ×3 (08:40→17:44)
[2018-08-07] MEDS: CYCLOBENZAPRINE 10 MG TAB PO SCH ×3 (08:46→21:23)
[2018-08-07] MEDS: GABAPENTIN 300 MG CAP PO SCH ×2 (08:46→16:41)
--- NOTE | 2018-08-07 08:46 | HOSPPROG ---
Hospitalist Progress Note Assessment/Plan: Maryellen is a 53 y/o female w has a complicated orthopedic surgery involving her r leg. She is s/p a kiara replacement 40 years ago c/b osteomyelitis and now w recent removal of hardware 2 weeks ago. She presented to the ER w severe pain in her leg. *Acute fx of the distal shaft of the femur s/p removal of instrumentation - Dr Parsons reviewed the images reviewed with Dr. Bravo, and feels that the medial bone loss present occurred during the procedure, and there is not a new fracture from her incident -the plan remains: TTWB RLE, dvt ppx per primary team, ortho will follow. *right gluteal pain -have asked neurosurgery to evaluate her imaging and give further input -to get an SI joint injection -reviewed her imaging w Dr Solares, nothing that requires surgery and she may get relief w an injection *acute on chronic pain -on chronic oxy IR, gabapentin -on Flexeril -scheduled Tylenol *anemia -follow *iatrogenic hypothyroidism -Synthroid *DM2 -resumed long acting, sliding scale -glucoses overall stable *asthma -nebs *HLD -statin *HTN -bp stable *dvt prophylaxis: LMWH *Plan: Appreciate Dr Solares, patient is very focused on her frustration about being 'misdiagnosed'- Dr Parsons to see later today. Will have patient rep f/u with her. Have asked CM to see if they can reserve her room at [facility] (the plan was to be dc this Thursday from their facility). Subjective: Maryellen is upset about her diagnosis. Objective: Vital Signs Temp Pulse Resp BP Pulse Ox 36.7 C 81 19 107/81 H 95 08/07/18 07:37 08/07/18 07:37 08/07/18 07:37 08/07/18 07:37 08/07/18 07:37 Laboratory Results 08/05/18 05:00 08/05/18 05:00 08/06/18 08/07/18 08/08/18 05:59 05:59 05:59 Intake Total 1300 1950 300 Output Total 2950 Balance -1650 1950 300 - Physical Exam Constitutional: no apparent distress, appears nourished Eyes: PERRL Ears, Nose, Mouth, Throat: hearing normal Skin: warm Musculoskeletal: generalized weakness Neurologic: AAOx3 Psychiatric: interacting appropriately ICD10 Worksheet Patient Problems: Problems Problem Status Onset Femur fracture, right Acute Bronchitis Acute Chest pain Acute Epigastric abdominal pain Acute Tachycardia Acute Vomiting Acute
[2018-08-07] MEDS: ENOXAPARIN 40 MG/0.4 ML SYR SC SCH (08:47)
[2018-08-07] MEDS: SENNOSIDES/DOCUSATE SODIUM TAB PO SCH ×2 (08:47→21:24)
[2018-08-07] MEDS: INSULIN GLARGINE 100 UNITS/ML UNIT SC SCH (08:48)
[2018-08-07] MEDS: LORazepam 0.5 MG TAB PO PRN (08:58)
--- NOTE | 2018-08-07 14:18 | GCON ---
REASON FOR CONSULTATION: Right low hip and leg pain. HOSPITAL COURSE, HISTORY, AND MAJOR MEDICAL FINDINGS: The patient is a 53-year- old female who originally presented to [facility] emergency room with worsening pain in her right leg. She states that earlier this week, she was in her wheelchair. Her right foot got caught underneath the wheel and she twisted across her body with her right arm to her left side. She catched to brace herself and developed acute right hip gluteal pain that radiates to her right anterior thigh, but worse, and to some extent to her right posterior thigh. She states that her leg is extremely painful to move and movement is more painful. She denies any left leg numbness, tingling, pain, or weakness. She denies any loss of bowel or bladder control. She recently underwent a right knee surgery and has been recovering from that as well. Upon coming into the emergency room, she has been seen by Dr. Little of Orthopedic Surgery as her imaging demonstrated an acute fracture of the distal shaft of the femur, status post removal of instrumentation. Given her worsening symptoms and continued pain in her right posterior.anterior leg and gluteal region, an MRI was obtained of the lumbar spine and then we were consulted for further management. REVIEW OF SYSTEMS: Review of systems is negative other than what is stated in the HPI. Please see the pertinent negatives and positives. PAST MEDICAL HISTORY: Significant for prior neck surgery, a bowel resection and a right femur ORIF with history of revision and removal of kiara, a cholecystectomy, a tonsillectomy and adenoidectomy, abdominal hysterectomy with bilateral salpingo-oophorectomy, chronic pain, history of hypothyroidism, history of type 2 diabetes, history of alcohol dependence, sigmoid diverticulitis, history of kidney stones. History of hyperlipidemia, hypertension, GERD, right hip necrosis, and asthma. FAMILY HISTORY: Significant for PAD, coronary artery disease and HI as well as thyroid disease, Hodgkin's lymphoma and ovarian cancer. SOCIAL HISTORY: The patient has a history of alcohol use, but denies any recent alcohol, tobacco or drug use. ALLERGIES: Amoxicillin, erythromycin, latex and tetracycline. HOME MEDICATIONS: Include alprazolam, Oxy IR as needed, tramadol, Xarelto, insulin, acyclovir, levothyroxine, Soliqua, gabapentin and albuterol. PHYSICAL EXAMINATION: VITAL SIGNS: Blood pressure is 107/81, heart rate is 81. She is 95% on 2 L nasal cannula. Temp 36.7. GENERAL: The patient is in no acute distress. She is alert and oriented x3. She answers questions appropriately. Affect appropriate to given situation. NEUROLOGIC: Cranial nerves 2-12 are grossly intact. EOMI and PERRLA. The patient has a 5/5 in all upper extremities including her deltoids, triceps, biceps, wrist flexors, extensors, interossei, intrinsic foreman or supervisor and operator. In the patient's left lower extremity, she has a 5/5 iliopsoas, hamstrings, quadriceps, plantar flexion, dorsiflexion, EHL. The patient's right lower extremity: She does have some pain, limited motion with both her hip flexor, knee extension, dorsiflexion and plantar flexion. Due to pain and limited mobility, she moves that leg approximately 4- out of 5 throughout due focally to pain with movement. The patient does have a positive Cherelle's for her right SI joint. Positive compression, positive tenderness to palpation. Sensation is intact. There is a scar over her right knee. DIAGNOSTIC REVIEW: The patient underwent a lumbar spine MRI which demonstrated an old compression fracture of T12 with some annular tears noted at L3-4 and L5- S1. At L4-5, there is a broad-based disk bulge with a far left neuroforaminal narrowing with mild to moderate neural foraminal narrowing with right mild neuroforaminal narrowing at L4-5, with some mild to moderate central L4-5 stenosis from the disk bulge. ASSESSMENT AND PLAN: The patient is a 53-year-old female who presented after her foot got stuck under her wheelchair, and she had a twisting motion to the left which caused some increased right hip gluteal right leg pain. She underwent ORIF with a femoral nail 40 years ago and underwent removal by Dr. Bravo approximately 2 and a half weeks ago. Given her exam and MRI findings, it is plausible that the patient is having some right sacroiliitis that is contributing to her pain. This was discussed in detail with Dr. Merritt Solares, and at this point in time, I will go ahead and order a right SI joint injection for diagnostic and hopefully therapeutic benefit. We will continue to follow. If there is any change in neurologic or motor exam, please notify Neurosurgery. /[id number]/MODL MTDD
--- NOTE | 2018-08-07 19:40 | GPROG ---
Will follow up from today's note. I have since had discussions with Dr. Bravo and Dr. Solares. I discu ssed the case with Dr. Santana earlier in the day. Overall, based on the patient's near preceding MRI, I do not think this is coming from her lumbar spine. I also do not think the SI injection would help any sort of numbness or weakness she has in the lower extremity. I suspect that her weakness and nu mbness are probably just due to a pressure phenomenon from swelling in the operative extremity, which is grossly within normal limits. Moving forward after a discussion was had with Dr. Solares, we do no t think that an SI injection would give her any benefit. A steroid would likely be contraindicated i n light of the patient's history of osteomyelitis in the right lower extremity, and a diagnostic inje ction would be considerably low yield. In light of this, I will have a discussion with the patient t omorrow that we do not think an SI injection would be necessarily of benefit and it would really just be a diagnosis of exclusion at this point. I will also discuss with the patient that Dr. Bravo will be available starting next week to resume her plan of care moving forward. If there are any question s over the weekend, please do not hesitate to contact me directly at [phone]. /[id number]/MODL
--- NOTE | 2018-08-07 19:45 | GPROG ---
DATE OF SERVICE: 08/07/2018 I saw and evaluated the patient today at the bedside. Overall, she offers no unusual complaints. Sh e reports that her pain has actually gotten better than before. She reports that the lower extremity is overall grossly weaker than the left side. PHYSICAL EXAM: SKIN: Incisions are clean, dry, and intact. NEUROLOGIC: She does have decreased se nsation on the dorsum of the right foot. She also has decreased strength at the tibialis anterior an d EHL as noted by Sal Santana MD. LABORATORY/IMAGING DATA: Imaging of the lumbar spine demonstrates some mild degenerative changes at the L4-5 level. Otherwise, grossly unremarkable. ASSESSMENT/PLAN: Moving forward, I will discuss further with Dr. Daphney Bravo regarding management of t his patient as I am just covering for today. Overall, at this time there is no immediate operative i ntervention plan from the orthopedics perspective. /[id number]/MODL
[2018-08-07] MEDS: MAGNESIUM HYDROXIDE 30 ML UDCUP PO PRN (21:20)
[2018-08-07] MEDS: MONTELUKAST SODIUM 10 MG TAB PO SCH (21:23)
[2018-08-08] MEDS: traMADol 50 MG TAB PO SCH ×4 (00:34→18:11)
[2018-08-08] MEDS: ACETAMINOPHEN 500 MG TAB PO SCH ×3 (05:06→21:04)
[2018-08-08] MEDS: LEVOTHYROXINE 88 MCG TAB PO SCH (05:07)
[2018-08-08] MEDS: oxyCODONE IR 5 MG TAB PO PRN ×5 (06:14→21:05)
[2018-08-08] MEDS: POLYETHYLENE GLYCOL 3350 17 GM PKT PO PRN (06:18)
[2018-08-08] MEDS: INSULIN LISPRO 100 UNIT/ML SC SCH ×4 (08:26→18:10)
--- NOTE | 2018-08-08 08:32 | GPROG ---
DAILY PROGRESS NOTE I saw and evaluated this patient today. Again, as I mentioned last night, I have discussed her plan of care with multiple providers. We canceled the CT-guided injection of her SI joint. Instead, we w ill get a CT scan of the entire femur to see exactly where the pain is coming from. She is reporting having done much better. PHYSICAL EXAMINATION: On physical exam, her leg is somewhat less painful. She has the same length a nd rotation as the contralateral side. ASSESSMENT AND PLAN: We will follow up with the CT scan later today with further recommendations. /[id number]/MODL
[2018-08-08] MEDS: GABAPENTIN 300 MG CAP PO SCH ×2 (08:36→16:02)
[2018-08-08] MEDS: LORazepam 0.5 MG TAB PO PRN (08:36)
[2018-08-08] MEDS: CYCLOBENZAPRINE 10 MG TAB PO SCH ×3 (08:36→21:04)
[2018-08-08] MEDS: SENNOSIDES/DOCUSATE SODIUM TAB PO SCH ×2 (08:36→21:04)
[2018-08-08] MEDS: INSULIN GLARGINE 100 UNITS/ML UNIT SC SCH (08:40)
--- NOTE | 2018-08-08 10:29 | HOSPPROG ---
Hospitalist Progress Note Assessment/Plan: Maryellen is a 53 y/o female w has a complicated orthopedic surgery involving her r leg. She is s/p a kiara replacement 40 years ago c/b osteomyelitis and now w recent removal of hardware 2 weeks ago. She presented to the ER w severe pain in her leg. *Acute fx of the distal shaft of the femur s/p removal of instrumentation - Dr Parsons reviewed the images reviewed with Dr. Bravo, and feels that the medial bone loss present occurred during the procedure, and there is not a new fracture from her incident -the plan remains: TTWB RLE, ortho will follow. -to get a CT of right femur for further evaluation, of note she has a hx of osteo x 2 *right gluteal pain -reviewed her imaging w Dr Solares, nothing that requires surgery *acute on chronic pain -on chronic oxy IR, gabapentin -on Flexeril -scheduled Tylenol *anemia -follow *iatrogenic hypothyroidism -Synthroid *DM2 -resumed long acting, sliding scale -glucoses overall stable *asthma -nebs *HLD -statin *HTN -bp stable *dvt prophylaxis: LMWH *Plan: if CT is stable; likely can dc tomorrow; she will need close f/u with Dr Bravo. She was recently at [facility] rehab and was to be discharged yesterday from their facility, may benefit from rehab for a few more days. Will await PT and OT's recommendations. Recheck a chemistry panel now. Reviewed her care w Dr Parsons and agree w getting a CT scan for further evaluation. Would be sure patient rep sees patient prior to dc. Subjective: Maryellen is frustrated about her hospital stay. Objective: Vital Signs Temp Pulse Resp BP Pulse Ox 36.5 C 89 18 130/67 H 94 08/08/18 08:00 08/08/18 08:00 08/08/18 08:00 08/08/18 08:00 08/08/18 08:00 Laboratory Results 08/05/18 05:00 08/05/18 05:00 08/07/18 08/08/18 08/09/18 05:59 05:59 05:59 Intake Total 1950 700 Balance 1950 700 - Physical Exam Constitutional: appears nourished, not in pain Eyes: PERRL Ears, Nose, Mouth, Throat: hearing normal Cardiovascular: regular rate and rhythym Respiratory: no respiratory distress Gastrointestinal: normoactive bowel sounds Skin: warm Musculoskeletal: generalized weakness Neurologic: AAOx3 Psychiatric: interacting appropriately ICD10 Worksheet Patient Problems: Problems Problem Status Onset Femur fracture, right Acute Bronchitis Acute Chest pain Acute Epigastric abdominal pain Acute Tachycardia Acute Vomiting Acute
[2018-08-08] MEDS: MAGNESIUM HYDROXIDE 30 ML UDCUP PO PRN (15:01)
[2018-08-08] MEDS: ALPRAZolam 0.25 MG TAB PO PRN (16:16)
--- NOTE | 2018-08-08 17:40 | GPROG ---
We ordered a CT scan on this patient to investigate her femur earlier today. I have since discussed that with the radiologist and reviewed the images myself. In reviewing the image, there is again a medial cortical defect, which was known to myself and Dr. Bravo. This does not appear to be extending past the local site where her operation was. I do not see any intra-articular hip pathology or anything that would be responsible for the patient's pain aside from simply a normal defect from removal of instrumentation. Based on this CT scan, there is no acute fracture or overall change in what we would have expected from the imaging. I have notified Dr. Bravo will be resuming care of this patient starting tomorrow. There is no change in overall management at this time. /[id number]/MODL MTDD
[2018-08-08] MEDS: MONTELUKAST SODIUM 10 MG TAB PO SCH (21:05)
[2018-08-09] MEDS: traMADol 50 MG TAB PO SCH ×5 (00:38→23:10)
[2018-08-09] MEDS: oxyCODONE IR 5 MG TAB PO PRN ×7 (03:50→23:26)
[2018-08-09] MEDS: ACETAMINOPHEN 500 MG TAB PO SCH ×3 (05:44→23:09)
[2018-08-09] MEDS: LEVOTHYROXINE 88 MCG TAB PO SCH (05:44)
[2018-08-09] MEDS: INSULIN LISPRO 100 UNIT/ML SC SCH ×3 (08:11→18:35)
[2018-08-09] MEDS: SENNOSIDES/DOCUSATE SODIUM TAB PO SCH ×2 (08:47→20:16)
[2018-08-09] MEDS: GABAPENTIN 300 MG CAP PO SCH ×2 (08:47→16:59)
[2018-08-09] MEDS: CYCLOBENZAPRINE 10 MG TAB PO SCH ×3 (08:48→23:10)
[2018-08-09] MEDS: ENOXAPARIN 40 MG/0.4 ML SYR SC SCH (08:48)
[2018-08-09] MEDS: INSULIN GLARGINE 100 UNITS/ML UNIT SC SCH (08:49)
[2018-08-09] MEDS: POLYETHYLENE GLYCOL 3350 17 GM PKT PO PRN (09:01)
--- NOTE | 2018-08-09 13:16 | SOAPPROG ---
SOAP Progress Note Assessment/Plan: Assessment: Maryellen is a pleasant 53 year old female now 3 weeks s/p hardware removal of the right femur with distal femur bone grafting on 07/20/18. She reports she was improving steadily until getting her foot caught at the rehab facility last week which resulted in exacerbation of hip and thigh pain. She was admitted to [facility] and had CT scan which showed no evidence of new fracture. Dr. Ferrari and Dr. Bravo have been communicating about Maryellen and plan is to remain toe touch weight bearing. PE: Incisions are well healed. She does have increased swelling of the right lower extremity when compared to the contralateral side. NV intact RLE. Calf is soft to compression without pain. Plan: Plan for continued conservative treatment. She will continue toe touch weight bearing with the walker. US was ordered to evaluate for DVT due to posterior knee pain and came back as negative for DVT. PT/OT are recommending rehab facility due to her continued difficulty going up and down stairs. Patient has three flights of stairs at home and will be unable to do this on her own. We will continue following her during her hospital stay. 08/09/18 13:11 Objective: Vital Signs Temp Pulse Resp BP Pulse Ox 36.4 C 95 16 130/69 H 91 L 08/09/18 07:38 08/09/18 07:38 08/09/18 07:38 08/09/18 07:38 08/09/18 07:38 Laboratory Results 08/05/18 05:00 08/08/18 10:55 08/08/18 08/09/18 08/10/18 05:59 05:59 05:59 Intake Total 700 500 Balance 700 500 ICD10 Worksheet Patient Problems: Problems Problem Status Onset Femur fracture, right Acute Bronchitis Acute Chest pain Acute Epigastric abdominal pain Acute Tachycardia Acute Vomiting Acute
--- NOTE | 2018-08-09 13:37 | HOSPPROG ---
Hospitalist Progress Note Assessment/Plan: Maryellen is a 53 y/o female w has a complicated orthopedic surgery involving her r leg. Recent removal of hardware 2 weeks ago. She presented to the ER w severe pain in her leg. First encounter, chart reviewed. D/W Siobhan Hernandez CM. *Acute fx of the distal shaft of the femur s/p removal of instrumentation - Dr Parsons and Dr. Bravo involved - Feel that medial bone loss present occurred during the procedure -No new fracture from her incident -the plan remains: TTWB RLE, ortho will follow. -US neg fro DVT *right gluteal pain -nothing that requires surgery *acute on chronic pain -on chronic oxy IR, gabapentin -on Flexeril -scheduled Tylenol *anemia -follow *iatrogenic hypothyroidism -Synthroid *DM2 -resumed long acting, sliding scale -glucoses overall stable *asthma -nebs *HLD -statin *HTN -bp stable *dvt prophylaxis: LMWH *Plan: Plan for DC to rehab if CM can arrange she will need close f/u with Dr Bravo. Would be sure patient rep sees patient prior to dc. Subjective: Up in chair. Having significant pain. Concerned about situation. Objective: Vital Signs Temp Pulse Resp BP Pulse Ox 36.4 C 95 16 130/69 H 91 L 08/09/18 07:38 08/09/18 07:38 08/09/18 07:38 08/09/18 07:38 08/09/18 07:38 Laboratory Results 08/05/18 05:00 08/08/18 10:55 08/08/18 08/09/18 08/10/18 05:59 05:59 05:59 Intake Total 700 500 Balance 700 500 - Physical Exam Constitutional: no apparent distress, appears nourished, uncomfortable Eyes: PERRL, anicteric sclera, EOMI Ears, Nose, Mouth, Throat: moist mucous membranes, hearing normal, ears appear normal Cardiovascular: No JVD, No tachycardia, No edema Respiratory: no respiratory distress, no rales or rhonchi, reduced air movement Gastrointestinal: normoactive bowel sounds, No tenderness, No ascites Skin: warm, normal color, No mottled Musculoskeletal: pain with ROM, muscular tenderness, generalized weakness Neurologic: AAOx3 Psychiatric: not encephalopathic, anxious, agitated, poor insight ICD10 Worksheet Patient Problems: Problems Problem Status Onset Chest pain Acute Bronchitis Acute Epigastric abdominal pain Acute Vomiting Acute Tachycardia Acute Femur fracture, right Acute
--- NOTE | 2018-08-09 14:06 | ASMTCMCOM ---
CM Note CM Note Notes: Pt is unable to safely navigate her stairs up to her apartment and wants to return to [facility]. [facility] D/c plan of care: [facility] when insurance auth is in Date Signed: 08/09/2018 02:06 PM Electronically Signed By:EDSON Colbert
--- NOTE | 2018-08-09 16:37 | ASMTCMCOM ---
CM Note CM Note Notes: [facility] has insurance authorization, pt to d/c tomorrow. Pt updated. Date Signed: 08/09/2018 04:37 PM Electronically Signed By:EDSON Colbert
[2018-08-09] MEDS: MONTELUKAST SODIUM 10 MG TAB PO SCH (20:15)
--- NOTE | 2018-08-10 01:58 | GPROG ---
DAILY PROGRESS NOTE I saw and evaluated the patient this morning. Really, I just came by the bedside to discuss her CT s can with her. The CT scan demonstrates no evidence of an acute fracture or a fracture propagation th rough the medial cortical defect. At this point, I will personally hand-off care to Dr. Daphney Bravo re garding this patient moving forward. Of note, the patient is somewhat frustrated. She also feels th at at some point surgery had been offered to her. I personally have no recollection of this, as we w ere awaiting on the further information from Dr. Bravo before making surgical plans. I am happy to an swer any questions in the future if they arise. /[id number]/MODL
[2018-08-10] MEDS: LEVOTHYROXINE 88 MCG TAB PO SCH (05:04)
[2018-08-10] MEDS: traMADol 50 MG TAB PO SCH ×2 (05:04→11:16)
[2018-08-10] MEDS: ACETAMINOPHEN 500 MG TAB PO SCH (05:04)
[2018-08-10] MEDS: oxyCODONE IR 5 MG TAB PO PRN ×2 (05:05→09:25)
[2018-08-10 07:23] VITALS: BP 108/58
[2018-08-10] MEDS: ENOXAPARIN 40 MG/0.4 ML SYR SC SCH (07:44)
[2018-08-10] MEDS: CYCLOBENZAPRINE 10 MG TAB PO SCH (07:45)
[2018-08-10] MEDS: GABAPENTIN 300 MG CAP PO SCH (07:45)
[2018-08-10] MEDS: SENNOSIDES/DOCUSATE SODIUM TAB PO SCH (07:46)
[2018-08-10] MEDS: INSULIN LISPRO 100 UNIT/ML SC SCH ×2 (07:55→11:50)
[2018-08-10] MEDS: INSULIN GLARGINE 100 UNITS/ML UNIT SC SCH (08:12)
--- NOTE | 2018-08-10 09:37 | PDIAF ---
- Diagnosis Diagnosis: weakness Code Status: Full Code - Medication Management Discharge Medications: electronically signed and located in the Home Medication List. PICC Care - Routine: N/A - Orders Services needed: Registered Nurse, Physical Therapy, Occupational Therapy Diet Recommendation: no restrictions on diet - Follow Up Care Current Providers and Referrals: Patient,NotPresent [Unknown] - As per Instructions Daphney Bravo MD [Medical Doctor] -
--- NOTE | 2018-08-10 10:46 | ASMTDCNOTE ---
Case Management Discharge Discharge Order Complete? Answers: Yes Patient to Obtain Answers: Other Notes: [facility] Medications Transportation Arranged Answers: Other Notes: [facility] Transport will Pick (Date 08/10/2018 12:00 PM & Time) Faxed Final Orders Answers: Yes Agency/Facility Transfer Answers: Yes Report Printed & Faxed to Receiving Agency Discharge Comments Notes: Patient medically ready for d/c today. All orders sent to [facility], confirmed with Batsheva pacheco. [facility] scheduled own wheelchair transport for 12:00 p.m. today, met with patient who is in agreement with plan. D/W RN who will call report. Date Signed: 08/10/2018 10:45 AM Electronically Signed By:Ailyn Moran RN
--- NOTE | 2018-08-10 10:47 | ASMTLACE ---
LACE Length of stay for Answers: 4-6 days current admission Acuity / Level of Answers: Yes Care: Did the patient have an inpatient admission? Comorbidities - select Answers: Diabetes (uncontrolled or all that apply controlled) Other Notes: osteopenia # of Emergency department Answers: 1-2 visits in the last 6 months Score: 10 Date Signed: 08/10/2018 10:46 AM Electronically Signed By:Ailyn Moran RN
--- NOTE | 2018-08-10 19:21 | GDS ---
DISCHARGE DIAGNOSES: 1. Right lower extremity pain. 2. Right gluteal pain. 3. Acute on chronic pain. 4. Anemia. 5. Iatrogenic hypothyroidism. 6. Diabetes mellitus 2. 7. Asthma. 8. Hyperlipidemia. 9. Hypertension. CONSULTATIONS: Orthopedics, Dr. Bravo and Dr. Parsons. STUDIES AND PROCEDURES DONE: 1. Hip x-ray. 2. Knee x-ray. 3. Femur x-ray. 4. Lumbar spine MRI. 5. CT of the right lower extremity. 6. Doppler. PHYSICAL EXAM: GENERAL: The patient is alert. VITAL SIGNS: Afebrile at 36.1, pulse of 76, respira tory rate 17. Blood pressure is 108/58. She is saturating 90% on room air. I have seen and evaluat ed the patient on the day of discharge. HOSPITAL COURSE: The patient is a 53-year-old female who presented to the emergency room with compla ints of right lower extremity pain. She was evaluated and diagnosed with: 1. Right lower extremity pain. There is no intervention to be performed secondary to this condition . She has been treated with supportive care. 2. Right gluteal pain. This is stable, not requiring any surgical intervention. Lumbar spine MRI h as been performed. 3. Acute on chronic pain. The patient's pain medications have been continued at the time of disposi tion. 4. Anemia. This is stable. 5. Iatrogenic hypothyroidism. Will continue her Synthroid. 6. Diabetes mellitus type 2. Her medications have been re-initiated, and she is stable. 7. Asthma. No signs of exacerbation. DISPOSITION: The patient will be discharged to nursing home facility for further rehabilitation a nd management. There are no pending studies. FOLLOWUP: Followup will be with Dr. Bravo, as well as the patient's primary care physician. I have d iscussed the patient's disposition with Case Management. I spent greater than 35 minutes in the care, coordination, and management of this patient's dispositi on. /[id number]/MODL
--- NOTE | 2018-08-11 09:15 | ASDISCHSUM ---
Discharge Information Plan Status:SNF Medically Cleared to Leave: Discharge Date:08/10/2018 12:33 PM D/C Disposition:[facility] Facility ADT D/C Disposition:[facility] Facility Projected Discharge Date:08/10/2018 11:00 AM Transportation at D/C:Wheelchair Van Discharge Delay Reason: Follow-Up Date:08/10/2018 11:00 AM Discharge Slot: Final Diagnosis: Placement Information Referral Type:*Fdc/SNF Referral ID:[id number] Provider Name:[facility] Address 1:[address] Address 2: City:[place] Selection Factors: State:[place] Patient Contact Information Contact Name:PERI Relationship:Son Address: City:[place] Alternate Phone: State/Zip Code:[place] Email: Financial Information Financial Class:[facility] Primary Plan Desc:[facility] Primary Plan Number:[id number] Secondary Plan Desc: Secondary Plan Number: Assessment Information [facility] Progress Note CM Note CM Note Notes: Chart reviewed for discharge planning purposes. Patient recently here for hardware removal and presents with pain after twisting. Distal femur fracture on xray and it is uncertain if it is a new or old fracture. Orthopedics consulted. CM to follow for needs. It appears she was at [facility]. to follow for needs, Date Signed: 08/05/2018 10:11 AM Electronically Signed By:Alberta Garcia RN LACE JOHN Length of stay for Answers: 4-6 days current admission Acuity / Level of Answers: Yes Care: Did the patient have an inpatient admission? Comorbidities - select Answers: Diabetes (uncontrolled or all that apply controlled) Other Notes: osteopenia # of Emergency department Answers: 1-2 visits in the last 6 months Score: 10 Date Signed: 08/10/2018 10:46 AM Electronically Signed By:Ailyn Moran RN [facility] CM Progress Note CM Note CM Note Notes: Pt wants to return to [facility], requests same bed and referral sent in All[employer]ripts. Date Signed: 08/06/2018 09:58 AM Electronically Signed By:EDSON Colbert [facility] CM Progress Note CM Note CM Note Notes: Batsheva with [facility] reports they can accept pt back but will need new insurance auth, [employer] insurance closed until Thursday. Pt will need PT/OT ordered, this CM alerted hospitalist Gregorio. Could not update pt because she was soundly sleeping. CM to follow. Date Signed: 08/06/2018 11:00 AM Electronically Signed By:EDSON Colbert [facility] ISELA Progress Note CM Note CM Note Notes: Pt is unable to safely navigate her stairs up to her apartment and wants to return to [facility]. Updates sent to [facility] who have sent [facility] for insurance authorization. D/c plan of care: [facility] when insurance auth is in Date Signed: 08/09/2018 02:06 PM Electronically Signed By:EDSON Colbert [facility] ISELA Progress Note CM Note CM Note Notes: [facility] has insurance authorization, pt to d/c tomorrow. Pt updated. Date Signed: 08/09/2018 04:37 PM Electronically Signed By:EDSON Colbert Case Management Discharge Plan Note Case Management Discharge Discharge Order Complete? Answers: Yes Patient to Obtain Answers: Other Notes: [facility] Medications Transportation Arranged Answers: Other Notes: [facility] Transport will Pick (Date 08/10/2018 12:00 PM & Time) Faxed Final Orders Answers: Yes Agency/Facility Transfer Answers: Yes Report Printed & Faxed to Receiving Agency Discharge Comments Notes: Patient medically ready for d/c today. All orders sent to [facility], confirmed with Batsheva pacheco. [facility] scheduled own wheelchair transport for 12:00 p.m. today, met with patient who is in agreement with plan. D/W RN who will call report. Date Signed: 08/10/2018 10:45 AM Electronically Signed By:Ailyn Moran RN Intervention Information
--- NOTE | 2018-08-13 14:50 | PQFORM ---
PHYSICIAN QUERY FORM Needs Your Response This query form is being sent to you to assure this patient record is coded properly. Please respond to the question below: BONE WORKER QUESTION: Dr Ramos Progress Notes/X-ray indicate the presence of an Acute Distal Femoral Shaft Fracture s/p removal of Intramedullary Nail but no mention of this is made on the Discharge Summary. Should the fracture be a diagnosis listed on the Discharge Summary ? ___ Yes __x (see below for explanation)_ No ___ Other (Please Specify ) ___ Undetermined Thank You Yokasta OSULLIVAN Contract Administration Manager Explanation: The medical team initially thought this patient had an acute femoral fracture. However, the orthopedic surgery team extensively reviewed the patient's imaging (x-ray, CT) and felt that the bony changes seen on CT were due to recent surgery (removal of femoral kiara) and NOT due to an acute fracture. Thus, an acute femoral fracture should not be included as a diagnosis on the discharge summary. INSTRUCTIONS FOR RESPONSE: Answer question by clicking on the "Edit Document" button. Move cursor to area below the stars. When complete, hit "Save." Click on the "Sign" button, then click "Sign" again. Type in your PIN and hit "Enter." MTDD
== END 2018-08-10 12:33 | DRG 556 ==
LOC: EDUNIT# → F3N 22:08
PROVIDERS: ADMIT Internal Medicine; ATTEND Internal Medicine
DX: M79.661 Pain in right lower leg (principal); E11.9 Type 2 diabetes mellitus without complications; R52 Pain, unspecified; G89.29 Other chronic pain; K21.9 Gastro-esophageal reflux disease without esophagitis; D53.9 Nutritional anemia, unspecified; I10 Essential (primary) hypertension; E03.2 Hypothyroidism due to medicaments and other exogenous substances; E78.5 Hyperlipidemia, unspecified; F10.20 Alcohol dependence, uncomplicated; Z99.3 Dependence on wheelchair; Z87.891 Personal history of nicotine dependence; Z87.442 Personal history of urinary calculi; Z87.81 Personal history of (healed) traumatic fracture
CPT/HCPCS: 96374; 97116-GP; 97161-GP; 97165-GO; 97530-GP; 97535-GO; J1170; J1650; J1815; J2270

== ENCOUNTER 2018-09-09 08:18 | Inpatient (IN) | payer OTHER ==
--- NOTE | 2018-09-09 09:06 | EDPHY ---
H & P Stated Complaint: R knee pain Time Seen by Provider: 09/09/18 08:46 HPI/ROS: CHIEF COMPLAINT: "I broke my femur" HISTORY OF PRESENT ILLNESS: 53-year-old female arrives via ambulance , not a trauma activation, stating that she has acutely fractured her femur. Patient has a history of right femur fracture 40 years ago with kiara removal by Dr. Daphney Bravo approximately 1 month ago, states that she was getting out of the shower today, felt a "snap" and has pain to her right distal femur. Was able to bear weight initially , was able to get herself dressed but now states that she is unable to bear weight. Denies head injury. Denies paresthesia. Denies leg length discrepancy. Denies break in skin. Denies acute alcohol or drug use. Denies straddle injury. Denies hip pain. Denies tibia or fibula pain. Last oral intake 7:00 p.m. Last night Patient has Xarelto listed on her medication list for post operative prophylaxis however is not currently taking this has not been on this for several weeks. REVIEW OF SYSTEMS: 10 systems reviewed and negative with the exception of the elements mentioned in the history of present illness PAST MEDICAL/SURGICAL HISTORY: Remote history of right femur ORIF with removal of kiara approximately [address] Daphney Bravo. Diabetes mellitus. Hyperlipidemia. Hypertension. Chronic pain. Anemia. Iatrogenic hypothyroidism. no anticoagulant use, SOCIAL HISTORY: denies alcohol use at time of incident PHYSICAL EXAM 1) GENERAL: Well-developed, well-nourished, alert and oriented. Appears uncomfortable Answering questions appropriately. 2) HEAD: Normocephalic, atraumatic 3) HEENT: Pupils equal, round, reactive to light bilaterally. Negative Horners. Nasopharynx, oropharynx, clear. No deformity or angulation of nose. No septal hematoma. No rhinorrhea. No oral trauma. Ears bilaterally with normal tympanic membranes. No hemotympanum. No fluid or blood in the external auditory canal. No raccoon eyes. No Fraire sign. Teeth are normally aligned with no gross malocclusion, TMJ bilaterally nontender, facial bones nontender including the zygomatic arch, maxilla mandible. 4) NECK: No cervical collar is on. Posterior cervical spine is nontender, no stepoff, no effusion. Full range of motion which does not elicit any midline cervical spine pain, no posterior midline tenderness, no step-off. 5) LUNGS: Clear to auscultation bilaterally, no wheezes, no rhonchi, no retractions. No obvious signs of trauma. No chest wall pain. No flaring, no grunting. Moving symmetrically. No crepitus. 6) HEART: Regular rate and rhythm, 7) ABDOMEN: No guarding, no rebound, no focal tenderness, no peritoneal signs, no signs of trauma, no ecchymosis 8) MUSCULOSKELETAL: Right lower extremity: No visible trauma, intact skin, soft compartments. Tender to palpation mid thigh to the knee. No shortening or malrotation. Limited range of motion of the right knee secondary to pain. Tibia fibula foot and ankle are nontender. Brisk capillary refill. DP PT pulses present and brisk. Right greater trochanteric region is nontender. No inguinal pain. Otherwise, Moving all extremities, no focal areas of tenderness , no obvious trauma. 9) BACK: No midline vertebral tenderness, no fluctuance, no step-off, no obvious trauma, no visual or palpable abnormality. 10) SKIN: No laceration. No abrasion DIFFERENTIAL DIAGNOSIS: In no particular order including but not limited to acute exacerbation chronic pain, compartment syndrome, fracture, sprain, strain , dislocation - Medical/Surgical History Hx Asthma: Yes Hx Chronic Respiratory Disease: No Hx Diabetes: Yes Hx Cardiac Disease: No Hx Renal Disease: No Hx Cirrhosis: No Hx Alcoholism: No Hx HIV/AIDS: No Hx Splenectomy or Spleen Trauma: No Other PMH: Hysterectomy. gerd. DM 2. diverticulitis. HTN. lipids. Kidney stones., gall blader removed, bowle resection, neck sx, spinal sx, kiara in right femur-removed 2 wks ago. osteomylititis - Social History Smoking Status: Never smoked Constitutional: Initial Vital Signs Temperature (C) 36.6 C 09/09/18 08:20 Heart Rate 97 09/09/18 08:20 Respiratory Rate 18 09/09/18 08:20 Blood Pressure 164/93 H 09/09/18 08:20 O2 Sat (%) 95 09/09/18 08:20 O2 Delivery Mode Room Air Allergies/Adverse Reactions: amoxicillin Allergy (Verified 08/04/18 18:57) Hives azithromycin Allergy (Verified 08/04/18 18:57) Hives latex Allergy (Verified 08/04/18 18:57) Hives Sulfa (Sulfonamide Antibiotics) Allergy (Verified 08/04/18 18:57) tetracycline Allergy (Verified 08/04/18 18:57) Hives Home Medications: Medication Instructions Recorded Montelukast Sodium [Singulair 10 10 mg PO HS 02/21/17 mg (*)] Gabapentin [Neurontin 300 MG (*)] 600 mg PO DAILY16 07/12/18 Gabapentin [Neurontin 300 MG (*)] 900 mg PO DAILY 07/12/18 Levothyroxine [Synthroid 88 mcg 88 mcg PO DAILY06 07/12/18 (*)] Albuterol [Proventil Inhaler HFA 1 - 2 puffs IH Q4H PRN 07/13/18 (*)] Rivaroxaban [Xarelto 10mg (*)] 10 mg PO DAILY tab 07/23/18 ALPRAZolam [Xanax 0.25 MG (*)] 0.25 mg PO DAILY PRN 08/04/18 Acyclovir [Zovirax 200 mg (*)] 200 mg PO 5XD PRN 08/04/18 Cyclobenzaprine [Flexeril 10 MG 10 mg PO TID tab 08/10/18 (*)] Insulin Lispro [HumaLOG LISPRO] 0 unit SC TIDMEAL unit 08/10/18 Hydrocodone/APAP 5/325 [[place] 1 each PO DAILY PRN 09/09/18 5/325 (*)] Insulin Glargine/Lixisenatide 24 units SQ DAILY 09/09/18 [[place]iqu[place] 100 Unit-33 Mcg/ml Pen] traMADol [Ultram 50 mg (*)] 50 mg PO Q6HRS PRN 09/09/18 Medical Decision Making - Diagnostics Imaging Results: Imaging Impressions Knee X-Ray 09/09/18 08:21 Impression: New acute nondisplaced oblique fracture distal right femoral diaphysis. Femur X-Ray 09/09/18 08:57 Impression: New acute nondisplaced oblique fracture distal right femoral diaphysis. Images reviewed myself ED Course/Re-evaluation: 10:15 a.m.: Consultation Dr. Dangelo Parsons who will consult. He requests CT of the femur. Care of patient under supervision of secondary supervising physician Dr Hewitt with whom I discussed case. 10:20 a.m.: Consultation with hospitalist Adrianna, admit to Dr.Pratchi Kelly 10:36 a.m.: Patient complaining of urticaria, itching. Will be given IV Benadryl. - Data Points Laboratory Results: Laboratory Results 09/09/18 09:44 09/09/18 09:44 09/09/18 09/09/18 09/09/18 09:44 09:44 09:44 WBC 5.28 10^3/uL 10^3/uL (3.80-9.50) RBC 5.56 10^6/uL H 10^6/uL (4.18-5.33) Hgb 16.2 g/dL g/dL (12.6-16.3) Hct 48.7 % H % (38.0-47.0) MCV 87.6 fL fL (81.5-99.8) MCH 29.1 pg pg (27.9-34.1) MCHC 33.3 g/dL g/dL (32.4-36.7) RDW 11.9 % % (11.5-15.2) Plt Count 315 10^3/uL 10^3/uL (150-400) MPV 10.0 fL fL (8.7-11.7) Neut % (Auto) 46.8 % % (39.3-74.2) Lymph % (Auto) 43.2 % % (15.0-45.0) Teller % (Auto) 6.8 % % (4.5-13.0) Eos % (Auto) 2.1 % % (0.6-7.6) Baso % (Auto) 0.9 % % (0.3-1.7) Nucleat RBC Rel Count 0.0 % % (0.0-0.2) Absolute Neuts (auto) 2.47 10^3/uL 10^3/uL (1.70-6.50) Absolute Lymphs (auto) 2.28 10^3/uL 10^3/uL (1.00-3.00) Absolute Monos (auto) 0.36 10^3/uL 10^3/uL (0.30-0.80) Absolute Eos (auto) 0.11 10^3/uL 10^3/uL (0.03-0.40) Absolute Basos (auto) 0.05 10^3/uL 10^3/uL (0.02-0.10) Absolute Nucleated RBC 0.00 10^3/uL 10^3/uL (0-0.01) Immature Gran % 0.2 % % (0.0-1.1) Immature Gran # 0.01 10^3/uL 10^3/uL (0.00-0.10) PT 11.9 SEC L SEC (12.0-15.0) INR 0.86 (0.83-1.16) APTT 24.0 SEC SEC (23.0-38.0) Sodium 141 mEq/L mEq/L (135-145) Potassium 5.4 mEq/L H mEq/L (3.5-5.2) Chloride 107 mEq/L mEq/L (97-110) Carbon Dioxide 21 mEq/l L mEq/l (22-31) Anion Gap 13 mEq/L mEq/L (6-14) BUN 11 mg/dL mg/dL (7-23) Creatinine 0.5 mg/dL L mg/dL (0.6-1.0) Estimated GFR > 60 Glucose 140 mg/dL H mg/dL (70-100) Calcium 10.6 mg/dL H mg/dL (8.5-10.4) Specimen Hemolysis 113 Medications Given: Discontinued Medications Hydromorphone HCl (Dilaudid) 1 mg IVP EDNOW ONE Stop: 09/09/18 09:25 Last Admin: 09/09/18 10:02 Dose: 1 mg Ondansetron HCl (Zofran) 4 mg IVP EDNOW ONE Stop: 09/09/18 09:25 Last Admin: 09/09/18 10:02 Dose: 4 mg Departure - Departure
[2018-09-09] MEDS ORDERED: HYDROmorphONE/DILAUDID 1 MG/ML INJ IVP ONE (09:24)
[2018-09-09] MEDS ORDERED: ONDANSETRON 4 MG/2 ML VIAL IVP ONE (09:24)
[2018-09-09 09:53] LABS: PLATELET COUNT 315 10^3/uL (150-400)
[2018-09-09 10:02] LABS: INR 0.86 (0.83-1.16); PROTIME(PATIENT) 11.9 SEC (12.0-15.0)
[2018-09-09] MEDS ORDERED: ALPRAZolam 0.25 MG TAB PO PRN (10:33)
[2018-09-09] MEDS ORDERED: ACYCLOVIR 200 MG CAP PO PRN (10:33)
[2018-09-09] MEDS ORDERED: ACETAMINOPHEN 325 MG TAB PO PRN (10:51)
[2018-09-09] MEDS ORDERED: ALBUTEROL 3 ML DEYVIAL IH PRN (10:51)
[2018-09-09] MEDS ORDERED: ONDANSETRON DISINTEGRATING 4 MG TAB PO PRN (10:51)
[2018-09-09] MEDS ORDERED: ONDANSETRON 4 MG/2 ML VIAL IVP PRN (10:51)
[2018-09-09] MEDS ORDERED: diphenhydrAMINE 25 MG CAP PO PRN (10:51)
[2018-09-09] MEDS ORDERED: HYDROCODONE/APAP 5/325 TAB PO PRN (10:51)
[2018-09-09] MEDS ORDERED: HYDROmorphONE/DILAUDID 1 MG/ML INJ IVP PRN (10:51)
[2018-09-09] MEDS ORDERED: PROMETHAZINE HCL 25 MG/ML INJ IVP PRN (10:51)
[2018-09-09] MEDS ORDERED: NS 1,000 ML IV SCH (11:00)
[2018-09-09] MEDS: GABAPENTIN 300 MG CAP PO SCH ×2 (12:22→18:40)
[2018-09-09] MEDS: CYCLOBENZAPRINE 10 MG TAB PO SCH ×2 (12:22→19:46)
[2018-09-09] MEDS ORDERED: D50W 25 GM/50 ML SYR IVP PRN (12:58)
--- NOTE | 2018-09-09 13:11 | GCON ---
I was asked to see and evaluate the patient by Percy Tai. I have seen and evaluated her. This pa samantha is actually known to me from [facility]. HISTORY OF PRESENT ILLNESS: On 07/20, the patient underwent removal of a right intramedullary nail f or presumed infection and underwent an extended course of antibiotics at that time. She was seen in the emergency room and admitted with some pain, but a CT scan several weeks after the operation was n oted to be negative for any evidence of an acute fracture. The patient misstepped earlier today whil e trying to avoid one of her kittens which she planted on the foot heavily and heard an audible crack with severe pain and inability to ambulate afterwards. She was subsequently taken to the emergency room and admitted to the hospital for pain control. I discussed this with Percy Tai at the time a nd recommended that the patient be made nonweightbearing, that we get a CT scan. I have since review ed the CT scan and evaluated the patient. PHYSICAL EXAMINATION: SKIN: Clean, dry, and intact without evidence of infection. MUSCULOSKELETAL: Her femur is well aligned without evidence of malrotation or shortening. DIAGNOSTICS: I reviewed the images, as well as the radiology report, which demonstrates a spiral fra cture of the middle 3rd of the femur extending into the distal 3rd with that previous bone grafting w ithin the canal. IMPRESSION: Femoral shaft fracture. ASSESSMENT AND PLAN: At this point, I will discuss with Dr. Bravo to some extent. The patient will a t some point require a hip replacement for avascular necrosis as well. This somewhat complicates thi ngs. I think she will need an open reduction/internal fixation with likely a long plate versus long distal femoral plate with cerclage wires and screws where appropriate. At this point, the patient ca n be made nothing by mouth until further notice, and I can be contacted at any point for further concetta mmendations. Based on logistics of scheduling, it is unlikely the patient will be able to go to the operating room today. However, it is certainly something that we could manage in the very near futur e and almost certainly tomorrow. If there are any questions, please contact me directly on my cell phone at [phone]. /[id number]/MODL
[2018-09-09] MEDS: OXYCODONE/APAP 5/325 TAB PO PRN ×2 (13:58→18:39)
--- NOTE | 2018-09-09 14:23 | PDGENHP ---
History and Physical History and Physical: Chief complaint: Broken femur History of present illness: The patient is a 53-year-old female who presented to the ED today after she heard/felt her right femur break as she was getting out of the shower this morning. 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 Bravo had to remove the femoral kiara in early July in preparation for hip replacement surgery. Then in late July, the patient returned to the hospital with severe R upper leg pain and was subsequently sent to a senior living facility. She is very anxious and reports severe pain in R thigh. No other associated symptoms at this time. Past medical history: Diabetes mellitus. Hyperlipidemia. Hypertension. Chronic pain. Anemia. Iatrogenic hypothyroidism. Asthma. Anxiety. Diverticulosis. Past surgical history: Right femur ORIF with hardware removal 1 month ago. Medications: please see med rec form. Allergies: Amoxicillin, azithromycin, latex, sulfa, tetracyclines. Social history: Family history: Review of systems: 10 point review of systems was conducted and is negative except per HPI Physical exam: Vitals: Reviewed General: The patient is a female who is alert and in no acute distress. HEENT: normocephalic, extraocular movements intact, conjunctivae clear, no lesions on face. Mucous membranes moist. Neck: trachea midline, no visible masses, no external lesions. Abd: soft and nondistended. Musculoskeletal: Normal muscle tone and bulk. +tenderness thigh. Neuro: cranial nerves II - XII grossly intact. Intact gross motor and sensory function. Psych: appropriate mood/affect. Skin: No pallor. Heme/lymph: No peripheral edema. Labs: Other Data: Right femur x-ray, two view: New acute nondisplaced oblique for fracture distal right femoral diaphysis. Knee x-ray, four view: New acute nondisplaced oblique fracture distal right femoral diaphysis. Impression and plan: Acute right femur fracture Acute on chronic RLE pain Hyperkalemia, mild Hypercalcemia, minimal Iatrogenic hypothyroidism Diabetes mellitus type 2 Chronic anemia Sigmoid diverticulosis Hyperlipidemia Hypertension, not on meds -Check AM labs. -prn analgesics, muscle relaxants, antianxiety medication. -continue most home meds. -Orthopedic recs greatly appreciated. -NPO p12 in case of surgery tomorrow. -Hold Lovenox VTE ppx in case of surgery. -VTE ppx - will start after surgery. -Code status - full. -Inpt status for > 2 midnight hospitalization for inability to walk, need for surgery, severe pain.
--- NOTE | 2018-09-09 14:45 | ASMTCMCOM ---
CM Note CM Note Notes: Pt in for R femur fx, to OR likely tomorrow. Pt was at [facility] a couple times in July 2018 and d/c to [facility] where her son works. Pt resides alone. PT/OT ordered. CM to follow for d/c planning. D/c plan of care is TBD. Date Signed: 09/09/2018 02:45 PM Electronically Signed By:EDSON Colbert
[2018-09-09] MEDS: INSULIN GLARGINE 100 UNITS/ML UNIT SC SCH (15:49)
[2018-09-09] MEDS: INSULIN LISPRO 100 UNIT/ML SC SCH (18:41)
[2018-09-09] MEDS: MONTELUKAST SODIUM 10 MG TAB PO SCH (19:46)
[2018-09-09] MEDS: ALPRAZolam 0.25 MG TAB PO PRN (22:32)
[2018-09-09] MEDS: oxyCODONE IR 5 MG TAB PO PRN (22:32)
[2018-09-10] MEDS ORDERED: 1/2 NS 1,000 ML IV SCH
[2018-09-10] MEDS: CYCLOBENZAPRINE 10 MG TAB PO SCH ×3 (03:10→19:42)
[2018-09-10] MEDS: oxyCODONE IR 5 MG TAB PO PRN ×5 (03:16→22:23)
[2018-09-10] MEDS: LEVOTHYROXINE 88 MCG TAB PO SCH (04:53)
[2018-09-10] MEDS: ALPRAZolam 0.25 MG TAB PO PRN ×2 (04:55→19:42)
[2018-09-10 05:33] LABS: PLATELET COUNT 228 10^3/uL (150-400)
--- NOTE | 2018-09-10 06:33 | PDMN ---
Medical Necessity Medical necessity: Pt meets inpt criteria per MD order and Musculoskeletal Disease, Surgery or Procedure GRG. 53 y/o w/hx R femur ORIF w/recurrent hardware /bone infections and probable AVN- femoral kiara removed in Jul 2018 in prep for hip replacement surg, presenting now w/severe pain in R thigh after getting out of shower this AM, X-ray shows new acute nondisplaced oblique fx distal R femoral diaphysis, ortho consult, surgery likely on 09/10. IVF, IV Morphine roughly every 3-4 hours for pain, NPO for pending surg, anticipate>2MN for ongoing management of above.
[2018-09-10] MEDS ORDERED: ENOXAPARIN 40 MG/0.4 ML SYR SC SCH (09:00)
[2018-09-10] MEDS: INSULIN LISPRO 100 UNIT/ML SC SCH ×3 (09:49→21:11)
[2018-09-10] MEDS: INSULIN GLARGINE 100 UNITS/ML UNIT SC SCH (09:50)
[2018-09-10] MEDS: GABAPENTIN 300 MG CAP PO SCH ×2 (09:59→17:55)
--- NOTE | 2018-09-10 10:27 | ASMTCMCOM ---
CM Note CM Note Notes: PT to eval 09/11 as pt on bed rest and scheduled for surgery today. CM to follow. D/c plan of care is TBD Date Signed: 09/10/2018 10:26 AM Electronically Signed By:EDSON Colbert
[2018-09-10] MEDS ORDERED: BUPIVACAINE 0.5% 30 ML SDV ONE (12:27)
[2018-09-10] MEDS ORDERED: LIDOCAINE 1% 2 ML INJ ID PRN (13:29)
[2018-09-10] MEDS ORDERED: LR 1,000 ML IV ONE ×2 (13:29→14:02)
--- NOTE | 2018-09-10 13:53 | PDANEPAE ---
ANE History of Present Illness R femur nail, fractured femur ANE Past Medical History - Cardiovascular History Hx Hypertension: No Hx Arrhythmias: No Hx Chest Pain: No Hx Coronary Artery / Peripheral Vascular Disease: No Hx CHF / Valvular Disease: No Hx Palpitations: No Cardiovascular History Comment: BP RUNS LOW. MURMUR - Pulmonary History Hx COPD: No Hx Asthma/Reactive Airway Disease: Yes Hx Recent Upper Respiratory Infection: No Hx Oxygen in Use at Home: No Hx Sleep Apnea: No Sleep Apnea Screening Result - Last Documented: Positive Pulmonary History Comment: ASTHMA TRIGGERS HAS RESCUE INHALER SELDOM USES - Neurologic History Hx Cerebrovascular Accident: No Hx Seizures: No Hx Dementia: No - Endocrine History Hx Diabetes: Yes Endocrine History Comment: IDDM. HYPOTHYROID - Renal History Hx Renal Disorders: Yes Renal History Comment: KIDNEY STONES. UTI 02/2018 - Liver History Hx Hepatic Disorders: No - Neurological & Psychiatric Hx Hx Neurological and Psychiatric Disorders: No - Cancer History Hx Cancer: No - Congenital Disorder History Hx Congenital Disorders: No - GI History Hx Gastrointestinal Disorders: Yes Gastrointestinal History Comment: DIVERTICULITIS. GERD NO RX USED - Other Health History Other Health History: CHRONIC SINUSITIS. OSTEOMYLETITIS 2013 - Chronic Pain History Chronic Pain: Yes (RT LEG) - Surgical History Prior Surgeries: INTERNAL BLEEDING . RISHI ARM ORIF. HYSTERECTOMY. BOWEL RESECTION DIVERTICULIUM. LUMBAR LAMINECTOMY. CERVICAL FUSION. T&A ANE Review of Systems Review of Systems: ANE Patient History - Allergies Allergies/Adverse Reactions: amoxicillin Allergy (Verified 08/04/18 18:57) Hives azithromycin Allergy (Verified 08/04/18 18:57) Hives latex Allergy (Verified 08/04/18 18:57) Hives Sulfa (Sulfonamide Antibiotics) Allergy (Verified 08/04/18 18:57) tetracycline Allergy (Verified 08/04/18 18:57) Hives - Home Medications Home Medications: Montelukast Sodium [Singulair 10 mg (*)] 10 mg PO HS 02/21/17 [Last Taken ] Gabapentin [Neurontin 300 MG (*)] 600 mg PO DAILY16 07/12/18 [Last Taken ] Gabapentin [Neurontin 300 MG (*)] 900 mg PO DAILY 07/12/18 [Last Taken 09/08/18] Levothyroxine [Synthroid 88 mcg (*)] 88 mcg PO DAILY06 07/12/18 [Last Taken ] Albuterol [Proventil Inhaler HFA (*)] 1 - 2 puffs IH Q4H PRN 07/13/18 [Last Taken 06/20/18] ALPRAZolam [Xanax 0.25 MG (*)] 0.25 mg PO DAILY PRN 08/04/18 [Last Taken 22:00] Acyclovir [Zovirax 200 mg (*)] 200 mg PO 5XD PRN 08/04/18 [Last Taken 07/21/18] Hydrocodone/APAP 5/325 [[place] 5/325 (*)] 1 each PO DAILY PRN 09/09/18 [Last Taken 09/08/18] Insulin Glargine/Lixisenatide [Soliqu[place] 100 Unit-33 Mcg/ml Pen] 24 units SQ DAILY 09/09/18 [Last Taken 09/08/18] traMADol [Ultram 50 mg (*)] 50 mg PO Q6HRS PRN 09/09/18 [Last Taken 09/08/18] - NPO status NPO Since - Liquids (Date): 09/09/18 NPO Since - Liquids (Time): 23:55 NPO Since - Solids (Date): 09/09/18 NPO Since - Solids (Time): 23:55 - Smoking Hx Smoking Status: Never smoked ANE Labs/Vital Signs - Labs Result Diagrams: 09/10/18 04:20 09/10/18 04:20 - Vital Signs Blood Pressure: 109/62 Heart Rate: 85 Respiratory Rate: 16 O2 Sat (%): 98 Height: 162.56 cm Weight: 63.503 kg ANE Physical Exam - Airway Neck exam: FROM Mallampati Score: Class 2 Mouth exam: normal dental/mouth exam - Pulmonary Pulmonary: no respiratory distress - Cardiovascular Cardiovascular: regular rate and rhythym - ASA Status ASA Status: II ANE Anesthesia Plan Anesthesia Plan: GA w LMA (Scop patch for +PONV) Total IV Anesthesia: No
[2018-09-10] MEDS ORDERED: ceFAZolin 2 GM/DEXTROSE 100 ML IV ONE (13:56)
[2018-09-10] MEDS ORDERED: MIDAZOLAM 2 MG/2 ML VIAL IVP ONE (14:00)
[2018-09-10] MEDS ORDERED: CEFAZOLIN 2 GM/DEXTROSE/100 ML BAG IV ONE (14:01)
[2018-09-10] MEDS ORDERED: MIDAZOLAM 2 MG/2 ML VIAL ONE (14:04)
[2018-09-10] MEDS ORDERED: SCOPOLAMINE HYDROBROMIDE 1 MG/3 DAYS PATCH TD ONE (14:04)
[2018-09-10] MEDS: SCOPOLAMINE HYDROBROMIDE 1 MG/3 DAYS PATCH TD SCH (14:05)
[2018-09-10] MEDS ORDERED: fentaNYL 100 MCG/2 ML INJ ONE ×2 (14:12→16:25)
[2018-09-10] MEDS ORDERED: PROPOFOL 200 MG/20 ML VIAL ONE (14:12)
[2018-09-10] MEDS ORDERED: LIDOCAINE 2% 5 ML SDV ONE (14:12)
[2018-09-10] MEDS ORDERED: HYDROmorphONE/DILAUDID 2 MG/ML INJ ONE (14:41)
--- NOTE | 2018-09-10 14:43 | HOSPPROG ---
Hospitalist Progress Note Assessment/Plan: Impression and plan: Acute right femur fracture Acute on chronic RLE pain Hyperkalemia, resolved Hypercalcemia, resolved Iatrogenic hypothyroidism Diabetes mellitus type 2 Chronic anemia H/o bronchitis Sigmoid diverticulosis Hyperlipidemia Hypertension, not on meds -Pt going to surgery today for R femur. Ortho may make recs for VTE ppx postop. -Check AM labs. -prn analgesics, muscle relaxants, antianxiety medication. -continue most home meds. -for mild wheezing, DuoNebs TID. -add PT/OT/ISU for postop. -VTE ppx - Lovenox held for surgery. -Code status - full. -Inpt status for > 2 midnight hospitalization for inability to walk, need for surgery, severe pain. Likely will need SNF. Objective: Vital Signs Temp Pulse Resp BP Pulse Ox 36.6 C 85 16 109/62 98 09/10/18 11:57 09/10/18 14:00 09/10/18 14:00 09/10/18 14:00 09/10/18 14:00 Laboratory Results 09/10/18 04:20 09/10/18 04:20 09/09/18 09/10/18 09/11/18 05:59 05:59 05:59 Intake Total 1050 Output Total 1750 Balance -700 PT 11.9 SEC (12.0-15.0) L 09/09/18 09:44 INR 0.86 (0.83-1.16) 09/09/18 09:44 General: The patient is a female who is alert and in no acute distress. HEENT: normocephalic, extraocular movements intact, conjunctivae clear, no lesions on face. Mucous membranes moist. Neck: trachea midline, no visible masses, no external lesions. CV: +S1/S2, RRR, no MRG. Resp: unlabored, CTAB with mild expiratory wheezing bilaterally. No rales or rhonchi. Abd: soft and nondistended. Musculoskeletal: Normal muscle tone and bulk. Neuro: cranial nerves II - XII grossly intact. Intact gross motor and sensory function. Psych: appropriate mood/affect. Skin: No pallor. - Time Spent With Patient Time Spent with Patient: greater than 35 minutes Time Spent with Patient: Greater than 35 minutes spent on this patients care, greater than 50% of time spent counseling, educating, and coordinating care regarding the above mentioned plan. ICD10 Worksheet Patient Problems: Problems Problem Status Onset Bronchitis Acute Chest pain Acute Epigastric abdominal pain Acute Femur fracture, right Acute Tachycardia Acute Vomiting Acute
[2018-09-10] MEDS ORDERED: DIAZEPAM 5 MG/ML 1 ML SYR IVP PRN (15:47)
[2018-09-10] MEDS ORDERED: ALBUTEROL 3 ML DEYVIAL IH PRN (15:47)
[2018-09-10] MEDS ORDERED: ONDANSETRON 4 MG/2 ML VIAL IVP PRN (15:47)
[2018-09-10] MEDS ORDERED: NALOXONE HCL 0.4 MG/ML INJ IVP PRN (15:47)
[2018-09-10] MEDS ORDERED: HYDROmorphONE/DILAUDID 2 MG/ML INJ IVP PRN (15:47)
[2018-09-10] MEDS ORDERED: LR 500 ML IV PRN (15:47)
[2018-09-10] MEDS ORDERED: IPRATROPIUM/ALBUTEROL 4GM MDI IH SCH (16:00)
--- NOTE | 2018-09-10 16:20 | POSTANESTH ---
Post Anesthetic Evaluation Cardiovascular Status: Normal, Stable Respiratory Status: Normal, Stable Level of Consciousness/Mental Status: Can Participate in Eval Pain Control: Adequate, Prn Tx Ordered Nausea/Vomiting Control: Adequate, Prn Tx Ordered Complications Possibly Related to Anesthesia: None Noted
[2018-09-10] MEDS: IPRATROPIUM/ALBUTEROL 3 ML DEYVIAL IH SCH ×2 (16:24→22:11)
[2018-09-10] MEDS: fentaNYL 100 MCG/2 ML INJ IVP PRN ×2 (16:26→17:12)
--- NOTE | 2018-09-10 16:26 | POSTOPPROG ---
Post Op Note Date of Operation: 09/10/18 Surgeon: Delroy Sheffield Pre-op Diagnosis: R femur fx Post-op Diagnosis: same Procedure: ORIF R femur fx Inf/Abcess present in the surg proc area at time of surgery?: No EBL: 100-500 Drains: Yadiel Turner
--- NOTE | 2018-09-10 16:59 | GOP ---
DATE OF OPERATION: 09/10/2018 SURGEON: Delroy Sheffield MD ANESTHESIA: General. PREOPERATIVE DIAGNOSIS: Right femur fracture. POSTOPERATIVE DIAGNOSIS: Right femur fracture. PROCEDURE PERFORMED: Open reduction, internal fixation, right femur fracture. FINDINGS: ESTIMATED BLOOD LOSS: Approximately 200 mL. INDICATIONS: The patient is a 53-year-old with very involved history relative to her right femur. S he had undergone a difficult removal of an intramedullary nail in the right femur previously placed f or fracture. The patient was waiting to have a right total hip arthroplasty for advanced arthritis. She had a rather atraumatic episode resulting in a nondisplaced fracture of her distal diaphysis of her femur. Based on the nature of the injury, it was recommended that operative treatment be pursued . While revision intramedullary stabilization would have been an option based on her subsequent need for total hip arthroplasty and concern over reaming through a bone graft in intramedullary canal, la teral plate fixation was chosen instead of intramedullary fixation. The patient acknowledged she und erstood the potential risks of the operation, including but not limited to bleeding, infection, neuro vascular damage leading to loss of limb function, malunion, nonunion, need for hardware removal, pain or functional limitations despite operative treatment and anesthetic risks. She acknowledged she un derstood the potential risks of the planned procedure and postoperative plan well, and had all questi ons answered prior to surgery. She gave her consent for the operative procedure. DESCRIPTION OF PROCEDURE: The patient was brought to the operating room after IV antibiotics were ad ministered. She was placed in a supine position where general anesthetic was administered. The bump was placed underneath the right hip and shoulder and the right lower extremity was prepped and drape d in standard sterile fashion. After marking the incision, a lateral approach to the femur was utili zed for exposure. A portion of her previous incision was utilized and extended distally. Skin and s ubcutaneous tissue were sharply incised. Dissection was carried with electrocautery unit down to the fascia overlying the vastus lateralis. The fascia was longitudinally incised. A sub vastus approac h was utilized, elevating the vastus lateralis off the intermuscular septum. The perforating vessels were sequentially identified and cauterized. The lateral aspect of the femur was identified. Very limited soft tissue stripping was performed allowing for visualization of the lateral cortex. As the fracture was nondisplaced, it did not require a reduction maneuver. A 12-hole lateral femoral locki ng plate was chosen. The plate length was confirmed fluoroscopically and felt to be favorable. The plate was contoured with a bending press to adequately fit the lateral aspect of her femur. Just dis nicolle to the plane of the fracture, a 3.5 mm unicortical nonlocking screw was placed securing the plate to the bone. With the plate held in appropriate position and position confirmed fluoroscopically, 5 .0 mm cortical locking screws were placed both proximal and distal to the fracture. Screws were plac ed immediately proximal and distal to the fracture plane. Distally, plate screws were placed through the condylar segment and in the distal diaphyseal region. Approximately 2 additional 5.0 mm cortica l locking screws were placed, gaining favorable disbursement across the fixation. Fluoroscopic views confirmed favorable hardware placement and fracture alignment. Each time a hole was drilled the dri ll reamings were sent to Pathology for analysis to assess for any potential infection. Additionally, the swab was performed in the lateral wound to assess for any infection. Attention was directed toward closure. A Yadiel-Turner drain was placed. The fascia over the vastus lateralis was closed with 0 Vicryl suture in interrupted fashion. Subcutaneous tissue closed with 3 -0 Vicryl suture in interrupted fashion. Skin closed with skin jovon. 0.5% Marcaine without epine phrine was injected in the wound sites. The wounds were dressed with sterile Adaptic, 4 x 4 and ABD. The patient tolerated the procedure well and was taken to the recovery room, extubated in stable co ndition postoperatively. All sponge, needle, and instrument counts were reported as being correct. DRAINS: Yadiel Turner. COMPLICATIONS: None. PLAN: The patient will be admitted for medical management. She will be 25 pounds weightbearing on h er operative extremity. /[id number]/MODL
[2018-09-10] MEDS: MONTELUKAST SODIUM 10 MG TAB PO SCH (19:42)
[2018-09-10] MEDS: ceFAZolin 2 GM/DEXTROSE 100 ML IV SCH (22:24)
[2018-09-11] MEDS: CYCLOBENZAPRINE 10 MG TAB PO SCH ×3 (04:55→20:00)
[2018-09-11] MEDS: OXYCODONE/APAP 5/325 TAB PO PRN (04:55)
[2018-09-11] MEDS: ceFAZolin 2 GM/DEXTROSE 100 ML IV SCH (05:00)
[2018-09-11] MEDS: LEVOTHYROXINE 88 MCG TAB PO SCH (05:00)
[2018-09-11 05:17] LABS: PLATELET COUNT 234 10^3/uL (150-400)
--- NOTE | 2018-09-11 07:42 | SOAPPROG ---
SOAP Progress Note Assessment/Plan: Assessment: S/P ORIF R femur fx Pain in R leg Seth po RThigh dressing intact, no D/C Drain intact Distal NVI Plan: OOB/PT Con't with IV/po pain mgmt 09/11/18 07:40 Objective: Vital Signs Temp Pulse Resp BP Pulse Ox 36.8 C 123 H 15 162/81 H 96 09/11/18 03:54 09/11/18 07:32 09/11/18 07:32 09/11/18 03:54 09/11/18 07:32 Microbiology 09/10/18 15:20 Gram Stain - Final Leg - Eswab Laboratory Results 09/11/18 04:20 09/11/18 04:20 09/10/18 09/11/18 09/12/18 05:59 05:59 05:59 Intake Total 1050 1560 Output Total 1750 1350 1100 Balance -700 210 -1100 PT 11.9 SEC (12.0-15.0) L 09/09/18 09:44 INR 0.86 (0.83-1.16) 09/09/18 09:44 ICD10 Worksheet Patient Problems: Problems Problem Status Onset Bronchitis Acute Chest pain Acute Epigastric abdominal pain Acute Femur fracture, right Acute Tachycardia Acute Vomiting Acute
[2018-09-11] MEDS: INSULIN LISPRO 100 UNIT/ML SC SCH ×3 (08:15→18:03)
[2018-09-11] MEDS: oxyCODONE IR 5 MG TAB PO PRN ×4 (09:00→22:11)
[2018-09-11] MEDS: GABAPENTIN 300 MG CAP PO SCH ×2 (09:00→16:21)
--- NOTE | 2018-09-11 09:02 | HOSPPROG ---
Hospitalist Progress Note Assessment/Plan: Maryellen Alexander is a 53 y/o woman who fell getting out of the shower, she sustained a femur fx. Today is my first encounter, chart reviewed. *acute r femur fx -s/p ORIF *acute on chronic pain -patient is tearful this morning and requesting more pain medications -will ask pharmacy to consult on pain management *hyperkalemia -resolved *hypercalcemia -resolved *anemia -stable *DM2 -sliding scale *HLD *dvt prophylaxis -had been on Xarelto prior, will resume of ok w orthopedics Subjective: Maryellen said her pain is out of control. Objective: Vital Signs Temp Pulse Resp BP Pulse Ox 36.7 C 123 H 15 142/101 H 96 09/11/18 07:32 09/11/18 07:32 09/11/18 07:32 09/11/18 07:32 09/11/18 07:32 Microbiology 09/10/18 15:20 Gram Stain - Final Leg - Eswab Laboratory Results 09/11/18 04:20 09/11/18 04:20 09/10/18 09/11/18 09/12/18 05:59 05:59 05:59 Intake Total 1050 1560 Output Total 1750 1350 2100 Balance -700 210 -2100 PT 11.9 SEC (12.0-15.0) L 09/09/18 09:44 INR 0.86 (0.83-1.16) 09/09/18 09:44 - Physical Exam Constitutional: uncomfortable, No not in pain Eyes: PERRL Ears, Nose, Mouth, Throat: hearing normal Cardiovascular: regular rate and rhythym, tachycardia Respiratory: no respiratory distress Skin: warm, other (r hip & upper thigh w swelling) Neurologic: AAOx3 Psychiatric: anxious ICD10 Worksheet Patient Problems: Problems Problem Status Onset Bronchitis Acute Chest pain Acute Epigastric abdominal pain Acute Femur fracture, right Acute Tachycardia Acute Vomiting Acute
[2018-09-11] MEDS: INSULIN GLARGINE 100 UNITS/ML UNIT SC SCH (10:01)
[2018-09-11] MEDS ORDERED: PHARMACY PAIN CONSULT 1 EA MISC SCH (10:30)
[2018-09-11] MEDS: RIVAROXABAN 10 MG TAB PO SCH (11:01)
[2018-09-11] MEDS: IPRATROPIUM/ALBUTEROL 3 ML DEYVIAL IH SCH ×3 (11:02→20:35)
[2018-09-11] MEDS ORDERED: traMADol 50 MG TAB PO PRN (13:10)
--- NOTE | 2018-09-11 14:14 | ASMTCMCOM ---
CM Note CM Note Notes: Spoke with pt in the room. Pt was admitted for right femur fracture and had orthopedic surgery yesterday. Pt lives alone in a third floor apartment with no elevator. Pt has son who works at [facility] and pt went there after her last surgery in July. Referral sent to [facility], and they reported that she has used only 21 of her 90 covered Rehab days with them and is eligible for coverage, however, pt will have to meet her deductible as of Sep 14, 2018 before coverage starts. Pt states that she "doesn't have it" and will "just have to go home to her 3rd floor apartment." CM suggested she call friends to see if she could find a place to stay in the short term. 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 PT is recommending SNF. CM to follow. D/C Plans: TBD Date Signed: 09/11/2018 02:14 PM Electronically Signed By:Hallie Luna
--- NOTE | 2018-09-11 15:45 | ASMTCMCOM ---
CM Note CM Note Notes: ADDENDUM: Pt notified CM that she would be interested in Medicaid screening to see if she will qualify for SNF through Medicaid. Email sent to [email or web address] for screening. CM to follow. Date Signed: 09/11/2018 03:44 PM Electronically Signed By:Hallie Luna
[2018-09-11] MEDS: ACETAMINOPHEN 500 MG TAB PO SCH ×2 (16:22→22:11)
[2018-09-11] MEDS ORDERED: IOPAMIDOL (ISOVUE 370) 100 ML BTL IV ONE ×2 (18:33→20:24)
[2018-09-11] MEDS: MONTELUKAST SODIUM 10 MG TAB PO SCH (20:00)
[2018-09-12] MEDS: oxyCODONE IR 5 MG TAB PO PRN ×6 (01:58→21:47)
[2018-09-12] MEDS: LEVOTHYROXINE 88 MCG TAB PO SCH (04:45)
[2018-09-12] MEDS: CYCLOBENZAPRINE 10 MG TAB PO SCH ×3 (04:45→19:57)
[2018-09-12] MEDS: GABAPENTIN 300 MG CAP PO SCH ×4 (08:53→19:57)
[2018-09-12] MEDS: RIVAROXABAN 10 MG TAB PO SCH (08:54)
[2018-09-12] MEDS: ACETAMINOPHEN 500 MG TAB PO SCH ×3 (08:54→21:46)
[2018-09-12] MEDS: SENNOSIDES/DOCUSATE SODIUM TAB PO SCH ×3 (08:55→19:57)
[2018-09-12] MEDS: INSULIN LISPRO 100 UNIT/ML SC SCH ×3 (08:55→19:41)
[2018-09-12] MEDS: INSULIN GLARGINE 100 UNITS/ML UNIT SC SCH (08:55)
[2018-09-12] MEDS: IPRATROPIUM/ALBUTEROL 3 ML DEYVIAL IH SCH ×2 (09:41→16:36)
[2018-09-12] MEDS ORDERED: BISACODYL 10 MG SUPP PR PRN (11:07)
[2018-09-12] MEDS ORDERED: POLYETHYLENE GLYCOL 3350 17 GM PKT PO PRN (11:07)
[2018-09-12] MEDS ORDERED: LACTULOSE 20 GM/30 ML UDCUP PO PRN (11:07)
[2018-09-12] MEDS ORDERED: MAGNESIUM HYDROXIDE 30 ML UDCUP PO PRN (11:07)
[2018-09-12] MEDS: HYDROmorphONE/DILAUDID 2 MG TAB PO PRN (12:23)
[2018-09-12] MEDS: ALPRAZolam 0.25 MG TAB PO PRN (12:23)
--- NOTE | 2018-09-12 12:23 | HOSPPROG ---
Hospitalist Progress Note Assessment/Plan: Maryellen Alexander is a 53 y/o woman who fell getting out of the shower, she sustained a femur fx. Today is my first encounter, chart reviewed. *acute r femur fx -s/p ORIF *acute on chronic pain -patient is tearful this morning and requesting more pain medications -D/W pharmacy to consult on pain management -will added PO dilaudid -no IV pain meds *hyperkalemia -resolved #Tachycardia -CTA negative -unclear etiol -follow *hypercalcemia -resolved *anemia -stable *DM2 -sliding scale *HLD *dvt prophylaxis -had been on Xarelto prior, resumed Subjective: Tearful, frustrated. C/O pain. Objective: Vital Signs Temp Pulse Resp BP Pulse Ox 36.6 C 102 H 16 117/71 94 09/12/18 07:48 09/12/18 07:48 09/12/18 07:48 09/12/18 07:48 09/12/18 07:48 Microbiology 09/10/18 15:20 Gram Stain - Final Leg - Eswab Laboratory Results 09/11/18 04:20 09/11/18 04:20 09/11/18 09/12/18 09/13/18 05:59 05:59 05:59 Intake Total 1560 2590 Output Total 1350 5650 500 Balance 210 -3060 -500 PT 11.9 SEC (12.0-15.0) L 09/09/18 09:44 INR 0.86 (0.83-1.16) 09/09/18 09:44 - Physical Exam Constitutional: appears nourished, chronically ill appearing, uncomfortable Eyes: PERRL, anicteric sclera, EOMI Ears, Nose, Mouth, Throat: moist mucous membranes, hearing normal, ears appear normal Cardiovascular: tachycardia, No JVD, No edema Respiratory: no respiratory distress, no rales or rhonchi, reduced air movement Gastrointestinal: normoactive bowel sounds, No tenderness, No ascites Skin: warm, normal color, No mottled Musculoskeletal: joint tenderness, pain with ROM, generalized weakness Neurologic: AAOx3 Psychiatric: anxious, depressed, agitated ICD10 Worksheet Patient Problems: Problems Problem Status Onset Chest pain Acute Bronchitis Acute Epigastric abdominal pain Acute Vomiting Acute Tachycardia Acute Femur fracture, right Acute
--- NOTE | 2018-09-12 12:55 | SOAPPROG ---
SOAP Progress Note Assessment/Plan: Assessment: S/P ORIF R femur fx Pain in R leg Seth po RThigh dressing intact, no D/C Drain intact Distal NVI Plan: OOB/PT Con't with IV/po pain mgmt 09/11/18 07:40 09/12/18 12:52 S/P ORIF R Femur fx Pain with mild improvement Improved mobility to chair Some "numbness" on lateral foot Dressing/drain intact. Drain D/cathie Distal NV intact x slight dereased sensation on lat foot OOB/PT OK for D/C from ortho standpoint when dispo arranged F/U 2 wks Objective: Vital Signs Temp Pulse Resp BP Pulse Ox 36.6 C 102 H 16 117/71 94 09/12/18 07:48 09/12/18 07:48 09/12/18 07:48 09/12/18 07:48 09/12/18 07:48 Microbiology 09/10/18 15:20 Gram Stain - Final Leg - Eswab Laboratory Results 09/11/18 04:20 09/11/18 04:20 09/11/18 09/12/18 09/13/18 05:59 05:59 05:59 Intake Total 1560 2590 Output Total 1350 5650 500 Balance 210 -3060 -500 PT 11.9 SEC (12.0-15.0) L 09/09/18 09:44 INR 0.86 (0.83-1.16) 09/09/18 09:44 ICD10 Worksheet Patient Problems: Problems Problem Status Onset Bronchitis Acute Chest pain Acute Epigastric abdominal pain Acute Femur fracture, right Acute Tachycardia Acute Vomiting Acute
[2018-09-12] MEDS: MONTELUKAST SODIUM 10 MG TAB PO SCH (19:57)
[2018-09-13] MEDS: oxyCODONE IR 5 MG TAB PO PRN ×6 (02:36→23:25)
[2018-09-13] MEDS: IPRATROPIUM/ALBUTEROL 3 ML DEYVIAL IH SCH ×4 (04:56→22:52)
[2018-09-13] MEDS: LEVOTHYROXINE 88 MCG TAB PO SCH (05:07)
[2018-09-13] MEDS: CYCLOBENZAPRINE 10 MG TAB PO SCH ×3 (05:07→20:58)
[2018-09-13] MEDS: HYDROmorphONE/DILAUDID 2 MG TAB PO PRN ×2 (05:19→21:08)
--- NOTE | 2018-09-13 06:12 | SOAPPROG ---
SOAP Progress Note Assessment/Plan: Assessment: S/P ORIF R femur fx Pain in R leg Seth po RThigh dressing intact, no D/C Drain intact Distal NVI Plan: OOB/PT Con't with IV/po pain mgmt 09/11/18 07:40 09/12/18 12:52 S/P ORIF R Femur fx Pain with mild improvement Improved mobility to chair Some "numbness" on lateral foot Dressing/drain intact. Drain D/cathie Distal NV intact x slight dereased sensation on lat foot OOB/PT OK for D/C from ortho standpoint when dispo arranged F/U 2 wks 09/13/18 06:10 Pain imoroved. Mobility increasing Rleg - able to fully extend knee Dressing intact, no D/C Con't OOB/PT Dispo pending Objective: Vital Signs Temp Pulse Resp BP Pulse Ox 36.5 C 95 18 98/54 L 93 09/12/18 23:00 09/12/18 23:00 09/12/18 23:00 09/12/18 23:00 09/12/18 23:00 Microbiology 09/10/18 15:20 Gram Stain - Final Leg - Eswab Laboratory Results 09/11/18 04:20 09/11/18 04:20 09/12/18 09/13/18 09/14/18 05:59 05:59 05:59 Intake Total 2590 450 Output Total 5650 3100 Balance -3060 -2650 PT 11.9 SEC (12.0-15.0) L 09/09/18 09:44 INR 0.86 (0.83-1.16) 09/09/18 09:44 ICD10 Worksheet Patient Problems: Problems Problem Status Onset Bronchitis Acute Chest pain Acute Epigastric abdominal pain Acute Femur fracture, right Acute Tachycardia Acute Vomiting Acute
[2018-09-13] MEDS: ALPRAZolam 0.25 MG TAB PO PRN ×3 (06:54→23:31)
[2018-09-13] MEDS: INSULIN LISPRO 100 UNIT/ML SC SCH ×3 (08:06→18:34)
[2018-09-13] MEDS: GABAPENTIN 300 MG CAP PO SCH ×3 (09:00→20:58)
[2018-09-13] MEDS: INSULIN GLARGINE 100 UNITS/ML UNIT SC SCH (09:48)
[2018-09-13] MEDS: ACETAMINOPHEN 500 MG TAB PO SCH ×3 (09:49→23:27)
[2018-09-13] MEDS: RIVAROXABAN 10 MG TAB PO SCH (09:49)
[2018-09-13] MEDS: SENNOSIDES/DOCUSATE SODIUM TAB PO SCH ×4 (09:49→21:02)
--- NOTE | 2018-09-13 11:56 | ASMTCMCOM ---
CM Note CM Note Notes: Nelda met with the patient who states she does not want to do the Medicaid application because [facility] does not take Medicaid and this is the facility she wants to g to. Left a message for [facility] at [phone], ext. [phone] to see if we could negotiate with them since it is far more expensive to get rehab in the hospital. They will not be back in the office until Thursday. Met with the patient who is extremely anxious about not having the $800.00 to pay. Her friends have started a go fund me page to see if they can raise the amount. The only other option is to live with a friend who has a one story home or an apartment on the ground. Patient has not worked since July. CM will follow. Date Signed: 09/13/2018 11:56 AM Electronically Signed By:Kasandra Lauren LCSW
--- NOTE | 2018-09-13 14:49 | HOSPPROG ---
Hospitalist Progress Note Assessment/Plan: Maryellen Alexander is a 53 y/o woman who fell getting out of the shower, she sustained a femur fx. *acute r femur fx -s/p ORIF *acute on chronic pain - better pain control -reviewed with pharmacy -will waters oxy to Q3 -cont PO dilaudid -no IV pain meds *hyperkalemia -resolved #Tachycardia -CTA negative -unclear etiol -follow *hypercalcemia -resolved *anemia -stable *DM2 -sliding scale *HLD *dvt prophylaxis -had been on Xarelto prior, resumed *Dispo -awaiting insurance auth -reviewed with CM Subjective: Feeling better. Having pain every 3 -3.5 hours. Tearful about DC plan. Objective: Vital Signs Temp Pulse Resp BP Pulse Ox 36.4 C 103 H 12 115/55 L 90 L 09/13/18 07:58 09/13/18 07:58 09/13/18 07:58 09/13/18 07:58 09/13/18 07:58 Microbiology 09/10/18 15:20 Gram Stain - Final Leg - Eswab Laboratory Results 09/11/18 04:20 09/11/18 04:20 09/12/18 09/13/18 09/14/18 05:59 05:59 05:59 Intake Total 2590 1250 1000 Output Total 5650 3400 Balance -3060 -2150 1000 PT 11.9 SEC (12.0-15.0) L 09/09/18 09:44 INR 0.86 (0.83-1.16) 09/09/18 09:44 - Physical Exam Constitutional: appears nourished, chronically ill appearing, No obese Eyes: PERRL, anicteric sclera, EOMI Ears, Nose, Mouth, Throat: moist mucous membranes, hearing normal, ears appear normal Cardiovascular: No JVD, No edema Respiratory: no respiratory distress, reduced air movement Gastrointestinal: No tenderness, No ascites Skin: warm, normal color, No mottled Musculoskeletal: joint tenderness, pain with ROM, generalized weakness Neurologic: AAOx3 Psychiatric: anxious, poor insight, poor judgement ICD10 Worksheet Patient Problems: Problems Problem Status Onset Chest pain Acute Bronchitis Acute Epigastric abdominal pain Acute Vomiting Acute Tachycardia Acute Femur fracture, right Acute
[2018-09-13] MEDS: PATCH REMOVAL 1 EA PATCH TD SCH (15:01)
[2018-09-13] MEDS: SCOPOLAMINE HYDROBROMIDE 1 MG/3 DAYS PATCH TD SCH (15:02)
[2018-09-13] MEDS: MONTELUKAST SODIUM 10 MG TAB PO SCH (20:58)
[2018-09-14] MEDS: HYDROmorphONE/DILAUDID 2 MG TAB PO PRN ×4 (01:28→19:56)
[2018-09-14] MEDS: CYCLOBENZAPRINE 10 MG TAB PO SCH ×3 (03:35→19:56)
[2018-09-14] MEDS: oxyCODONE IR 5 MG TAB PO PRN ×4 (03:36→22:39)
[2018-09-14] MEDS: LEVOTHYROXINE 88 MCG TAB PO SCH (06:13)
[2018-09-14] MEDS: INSULIN LISPRO 100 UNIT/ML SC SCH ×3 (08:15→17:35)
[2018-09-14] MEDS: ALPRAZolam 0.25 MG TAB PO PRN ×2 (09:00→22:33)
[2018-09-14] MEDS: GABAPENTIN 300 MG CAP PO SCH ×3 (09:01→19:55)
[2018-09-14] MEDS: RIVAROXABAN 10 MG TAB PO SCH (09:02)
[2018-09-14] MEDS: SENNOSIDES/DOCUSATE SODIUM TAB PO SCH ×3 (09:02→19:55)
[2018-09-14] MEDS: ACETAMINOPHEN 500 MG TAB PO SCH ×3 (09:05→22:34)
[2018-09-14] MEDS: IPRATROPIUM/ALBUTEROL 3 ML DEYVIAL IH SCH ×3 (09:08→22:13)
[2018-09-14] MEDS: INSULIN GLARGINE 100 UNITS/ML UNIT SC SCH (09:50)
--- NOTE | 2018-09-14 12:52 | HOSPPROG ---
Hospitalist Progress Note Assessment/Plan: Maryellen Alexander is a 53 y/o woman who fell getting out of the shower, she sustained a femur fx. *acute r femur fx -s/p ORIF *acute on chronic pain -better pain control -reviewed with pharmacy -oxy Q3 -cont PO dilaudid -no IV pain meds *hyperkalemia -resolved #Tachycardia -resolved -CTA negative -unclear etiol -follow *hypercalcemia -resolved *anemia -stable *DM2 -sliding scale *HLD *dvt prophylaxis -had been on Xarelto prior, resumed *Dispo -awaiting insurance auth -reviewed with CM Subjective: Feeling anxious. Still having some pain. Objective: Vital Signs Temp Pulse Resp BP Pulse Ox 36.7 C 97 16 136/78 H 98 09/14/18 07:39 09/14/18 07:39 09/14/18 07:39 09/14/18 07:39 09/14/18 07:39 Microbiology 09/10/18 15:20 Gram Stain - Final Leg - Eswab Laboratory Results 09/11/18 04:20 09/11/18 04:20 09/13/18 09/14/18 09/15/18 05:59 05:59 05:59 Intake Total 1250 1500 500 Output Total 3400 250 1000 Balance -2150 1250 -500 PT 11.9 SEC (12.0-15.0) L 09/09/18 09:44 INR 0.86 (0.83-1.16) 09/09/18 09:44 - Physical Exam Constitutional: appears nourished, uncomfortable Eyes: PERRL, anicteric sclera Ears, Nose, Mouth, Throat: moist mucous membranes, hearing normal Cardiovascular: No JVD, No edema Respiratory: no respiratory distress, reduced air movement Gastrointestinal: No tenderness, No ascites Skin: warm, normal color Musculoskeletal: pain with ROM, generalized weakness Neurologic: AAOx3 Psychiatric: anxious, depressed ICD10 Worksheet Patient Problems: Problems Problem Status Onset Chest pain Acute Bronchitis Acute Epigastric abdominal pain Acute Vomiting Acute Tachycardia Acute Femur fracture, right Acute
[2018-09-14] MEDS: MONTELUKAST SODIUM 10 MG TAB PO SCH (19:56)
[2018-09-15] MEDS: CYCLOBENZAPRINE 10 MG TAB PO SCH ×3 (05:10→21:01)
[2018-09-15] MEDS: HYDROmorphONE/DILAUDID 2 MG TAB PO PRN (05:10)
--- NOTE | 2018-09-15 06:07 | SOAPPROG ---
SOAP Progress Note Assessment/Plan: Assessment: S/P ORIF R femur fx Pain in R leg Seth po RThigh dressing intact, no D/C Drain intact Distal NVI Plan: OOB/PT Con't with IV/po pain mgmt 09/11/18 07:40 09/12/18 12:52 S/P ORIF R Femur fx Pain with mild improvement Improved mobility to chair Some "numbness" on lateral foot Dressing/drain intact. Drain D/cathie Distal NV intact x slight dereased sensation on lat foot OOB/PT OK for D/C from ortho standpoint when dispo arranged F/U 2 wks 09/13/18 06:10 Pain imoroved. Mobility increasing Rleg - able to fully extend knee Dressing intact, no D/C Con't OOB/PT Dispo pending 09/15/18 06:06 Pain and mobility con't to improve Dressing intact, Distal NV Unchanged Con't OOB/PT OK for D/C from ortho standpoint Change dressing before D/C F/U 1 wk Objective: Vital Signs Temp Pulse Resp BP Pulse Ox 36.7 C 94 16 150/82 H 96 09/15/18 04:29 09/15/18 04:29 09/15/18 04:29 09/15/18 04:29 09/15/18 04:29 Microbiology 09/10/18 15:20 Gram Stain - Final Leg - Eswab Laboratory Results 09/11/18 04:20 09/11/18 04:20 09/14/18 09/15/18 09/16/18 05:59 05:59 05:59 Intake Total 1500 1050 Output Total 250 1750 Balance 1250 -700 PT 11.9 SEC (12.0-15.0) L 09/09/18 09:44 INR 0.86 (0.83-1.16) 09/09/18 09:44 ICD10 Worksheet Patient Problems: Problems Problem Status Onset Bronchitis Acute Chest pain Acute Epigastric abdominal pain Acute Femur fracture, right Acute Tachycardia Acute Vomiting Acute
[2018-09-15] MEDS: LEVOTHYROXINE 88 MCG TAB PO SCH (06:08)
[2018-09-15] MEDS: GABAPENTIN 300 MG CAP PO SCH ×3 (07:57→21:01)
[2018-09-15] MEDS: ACETAMINOPHEN 500 MG TAB PO SCH ×3 (07:58→23:18)
[2018-09-15] MEDS: SENNOSIDES/DOCUSATE SODIUM TAB PO SCH ×2 (07:58→21:02)
[2018-09-15] MEDS: oxyCODONE IR 5 MG TAB PO PRN ×5 (07:58→23:18)
[2018-09-15] MEDS: RIVAROXABAN 10 MG TAB PO SCH (07:58)
[2018-09-15] MEDS: INSULIN LISPRO 100 UNIT/ML SC SCH ×3 (08:02→17:44)
[2018-09-15] MEDS: INSULIN GLARGINE 100 UNITS/ML UNIT SC SCH (08:10)
[2018-09-15] MEDS: IPRATROPIUM/ALBUTEROL 3 ML DEYVIAL IH SCH ×3 (09:55→21:55)
[2018-09-15] MEDS: ALPRAZolam 0.25 MG TAB PO PRN ×2 (11:48→23:28)
--- NOTE | 2018-09-15 13:23 | HOSPPROG ---
Hospitalist Progress Note Assessment/Plan: Maryellen Alexander is a 53 y/o woman who fell getting out of the shower, she sustained a femur fx. *acute r femur fx -s/p ORIF *acute on chronic pain -better pain control -reviewed with pharmacy -oxy Q3 -cont PO dilaudid -no IV pain meds *hyperkalemia -resolved #Tachycardia -resolved -CTA negative -unclear etiol -follow *hypercalcemia -resolved *anemia -stable *DM2 -sliding scale *HLD *dvt prophylaxis -had been on Xarelto prior, resumed *Dispo -awaiting insurance auth -reviewed with CM Subjective: Feeling better today. Less pain. Objective: Vital Signs Temp Pulse Resp BP Pulse Ox 36.4 C 97 17 156/86 H 92 09/15/18 07:52 09/15/18 07:52 09/15/18 07:52 09/15/18 07:52 09/15/18 07:52 Microbiology 09/10/18 15:20 Gram Stain - Final Leg - Eswab Laboratory Results 09/11/18 04:20 09/11/18 04:20 09/14/18 09/15/18 09/16/18 05:59 05:59 05:59 Intake Total 1500 1050 Output Total 250 1750 Balance 1250 -700 PT 11.9 SEC (12.0-15.0) L 09/09/18 09:44 INR 0.86 (0.83-1.16) 09/09/18 09:44 - Physical Exam Constitutional: appears nourished, chronically ill appearing Eyes: PERRL, anicteric sclera Ears, Nose, Mouth, Throat: moist mucous membranes, hearing normal Cardiovascular: regular rate and rhythym, No JVD Respiratory: no respiratory distress, reduced air movement Gastrointestinal: No tenderness, No ascites Skin: warm, normal color Musculoskeletal: joint tenderness, pain with ROM, generalized weakness Neurologic: AAOx3 Psychiatric: not anxious, not encephalopathic ICD10 Worksheet Patient Problems: Problems Problem Status Onset Chest pain Acute Bronchitis Acute Epigastric abdominal pain Acute Vomiting Acute Tachycardia Acute Femur fracture, right Acute
--- NOTE | 2018-09-15 13:58 | ASMTCMCOM ---
CM Note CM Note Notes: [facility] cannot waive pt $800 deductible or SNF daily copay of 20% (~$110/day), pt aware and reports she is $85 away from raising $800. Pt aware of daily co-pay and reports she has a plan to pay it. Batsheva with [facility] is updated and will send for auth after meeting with pt because pt does still owes [facility] from her July stay. D/c plan of care: [facility] Date Signed: 09/15/2018 01:58 PM Electronically Signed By:EDSON Colbert
--- NOTE | 2018-09-15 15:57 | ASMTCMCOM ---
CM Note CM Note Notes: Pt tells CM her "feelings are hurt" because her son told her [facility] is concerned about pt paying the daily co-pay while she still owes them from her July stay. While [facility] can accept pt she now wants to consider applying for Medicaid as a secondary and going to a Medicaid SNF. Dianne with [employer] is alerted and will assess pt. Date Signed: 09/15/2018 03:56 PM Electronically Signed By:EDSON Colbert
[2018-09-15] MEDS: MONTELUKAST SODIUM 10 MG TAB PO SCH (21:02)
[2018-09-16] MEDS: CYCLOBENZAPRINE 10 MG TAB PO SCH ×3 (04:29→19:56)
[2018-09-16] MEDS: LEVOTHYROXINE 88 MCG TAB PO SCH (04:29)
[2018-09-16] MEDS: oxyCODONE IR 5 MG TAB PO PRN ×5 (04:29→20:06)
[2018-09-16] MEDS: SENNOSIDES/DOCUSATE SODIUM TAB PO SCH ×2 (07:28→19:55)
[2018-09-16] MEDS: GABAPENTIN 300 MG CAP PO SCH ×3 (07:28→19:55)
[2018-09-16] MEDS: ACETAMINOPHEN 500 MG TAB PO SCH ×3 (07:28→23:06)
[2018-09-16] MEDS: RIVAROXABAN 10 MG TAB PO SCH (07:29)
[2018-09-16] MEDS: ALPRAZolam 0.25 MG TAB PO PRN (07:29)
[2018-09-16] MEDS: INSULIN LISPRO 100 UNIT/ML SC SCH ×3 (08:00→18:09)
--- NOTE | 2018-09-16 09:06 | HOSPPROG ---
Hospitalist Progress Note Assessment/Plan: Maryellen Alexander is a 53 y/o woman who fell getting out of the shower, she sustained a femur fx. *acute r femur fx -s/p ORIF *acute on chronic pain -better pain control -reviewed with pharmacy -oxy Q3 -cont PO dilaudid -no IV pain meds *hyperkalemia -resolved #Tachycardia -mostly resolved -CTA negative *hypercalcemia -resolved *anemia -stable *DM2 -sliding scale *HLD *dvt prophylaxis -had been on Xarelto prior, resumed *Dispo -dc today to Subjective: Maryellen is doing well overall, has some concerns about needing further orthopedic surgery. Objective: Vital Signs Temp Pulse Resp BP Pulse Ox 36.7 C 91 17 111/74 94 09/16/18 07:49 09/16/18 07:49 09/16/18 07:49 09/16/18 07:49 09/16/18 07:49 Microbiology 09/10/18 15:20 Gram Stain - Final Leg - Eswab Laboratory Results 09/11/18 04:20 09/11/18 04:20 09/15/18 09/16/18 09/17/18 05:59 05:59 05:59 Intake Total 1050 800 Output Total 1750 Balance -700 800 PT 11.9 SEC (12.0-15.0) L 09/09/18 09:44 INR 0.86 (0.83-1.16) 09/09/18 09:44 - Physical Exam Constitutional: no apparent distress, appears nourished Eyes: PERRL Ears, Nose, Mouth, Throat: hearing normal Cardiovascular: regular rate and rhythym, tachycardia (slightly) Respiratory: no respiratory distress Gastrointestinal: normoactive bowel sounds Skin: normal color Musculoskeletal: generalized weakness Neurologic: AAOx3, sensation intact bilaterally Psychiatric: interacting appropriately ICD10 Worksheet Patient Problems: Problems Problem Status Onset Bronchitis Acute Chest pain Acute Epigastric abdominal pain Acute Femur fracture, right Acute Tachycardia Acute Vomiting Acute
[2018-09-16] MEDS: INSULIN GLARGINE 100 UNITS/ML UNIT SC SCH (10:00)
--- NOTE | 2018-09-16 10:47 | PDIAF ---
- Diagnosis Diagnosis: acute right femoral fx s/p ORIF Code Status: Full Code - Medication Management Discharge Medications: electronically signed and located in the Home Medication List. PICC Care - Routine: N/A - Orders Services needed: Physical Therapy, Occupational Therapy Diet Recommendation: ADA 2000 consistent carb Diet Texture: Regular Texture Diet Additional Instructions: follow up w Dr Sheffield in two weeks wean off the pain medications take good care of yourself - Follow Up Care Current Providers and Referrals: Delroy Sheffield MD [Medical Doctor] - Patient,NotPresent [Unknown] - As per Instructions
--- NOTE | 2018-09-16 12:26 | ASMTCMCOM ---
CM Note CM Note Notes: D/W HADOOP ARCHITECT, patient is ready for d/c today. [facility], insurance auth still pending. Met with patient to discuss dispo plan. Patient very upset and stated [facility] does not feel like they are the best facility to meet my needs as I may need a longer recovery than able to receive there. Patient also has an oustanding bill due at [facility] from a previoius stay. CM reiterated to patient that she is medically stable and a decision needs to be made. I have asked [employer] to rescreen patient for Medicaid to hopefully help with copay costs. Patient wanted to d/c to [facility] today, they do not accept [employer]. A referral has been made to and understands patient has a d/c order. Auth will be initiated once reviews and feels patient is appropriate. Spoke with Batsheva at [facility], she confirmed that they are concerned about the amount of days/weeks patient may need at rehab and that a LTC facility may be a better choice. Batsheva to cancel auth for [facility]. Plan: Hopefully [facility] Date Signed: 09/16/2018 12:25 PM Electronically Signed By:Ailyn Moran RN
[2018-09-16] MEDS: HYDROmorphONE/DILAUDID 2 MG TAB PO PRN (13:36)
[2018-09-16] MEDS: PATCH REMOVAL 1 EA PATCH TD SCH (15:20)
[2018-09-16] MEDS: SCOPOLAMINE HYDROBROMIDE 1 MG/3 DAYS PATCH TD SCH (15:21)
--- NOTE | 2018-09-16 16:10 | ASMTCMCOM ---
CM Note CM Note Notes: All updated therapy notes from 09/[address] [facility] and to [facility] (per [facility] nurse). Zoila at [facility] to be on site this afternoon to meet with patient. Awaiting final approval from [facility] and [facility]. Updated patient, RN and STACK CLERK. Plan: Likely [facility] Date Signed: 09/16/2018 04:09 PM Electronically Signed By:Ailyn Moran RN
[2018-09-16] MEDS: MONTELUKAST SODIUM 10 MG TAB PO SCH (19:56)
[2018-09-16] MEDS ORDERED: INSULIN LISPRO 100 UNIT/ML SC ONE (23:15)
[2018-09-17] MEDS: oxyCODONE IR 5 MG TAB PO PRN ×4 (00:33→13:01)
[2018-09-17] MEDS: LEVOTHYROXINE 88 MCG TAB PO SCH (04:43)
[2018-09-17] MEDS: CYCLOBENZAPRINE 10 MG TAB PO SCH ×2 (04:43→11:57)
[2018-09-17 07:21] VITALS: BP 134/73
--- NOTE | 2018-09-17 08:51 | HOSPPROG ---
Hospitalist Progress Note Assessment/Plan: Maryellen Alexander is a 53 y/o woman who fell getting out of the shower, she sustained a femur fx. *acute r femur fx -s/p ORIF *acute on chronic pain -better pain control -reviewed with pharmacy -oxy Q3 -cont PO dilaudid -no IV pain meds *hyperkalemia -resolved #Tachycardia -mostly resolved -CTA negative *hypercalcemia -resolved *anemia -stable *DM2 -sliding scale *HLD *dvt prophylaxis -had been on Xarelto prior, resumed *Dispo -to [facility] hopefully today Subjective: Maryellen is frustrated w discharge planning, is not c/o pain. Objective: Vital Signs Temp Pulse Resp BP Pulse Ox 36.4 C 103 H 17 134/73 H 95 09/17/18 07:20 09/17/18 07:20 09/17/18 07:20 09/17/18 07:20 09/17/18 07:20 Microbiology 09/10/18 15:20 Gram Stain - Final Leg - Eswab Laboratory Results 09/11/18 04:20 09/11/18 04:20 09/16/18 09/17/18 09/18/18 05:59 05:59 05:59 Intake Total 800 2350 Balance 800 2350 PT 11.9 SEC (12.0-15.0) L 09/09/18 09:44 INR 0.86 (0.83-1.16) 09/09/18 09:44 - Physical Exam Constitutional: no apparent distress, appears nourished Eyes: PERRL Ears, Nose, Mouth, Throat: hearing normal Respiratory: no respiratory distress Skin: warm Neurologic: AAOx3 Psychiatric: interacting appropriately ICD10 Worksheet Patient Problems: Problems Problem Status Onset Bronchitis Acute Chest pain Acute Epigastric abdominal pain Acute Femur fracture, right Acute Tachycardia Acute Vomiting Acute
[2018-09-17] MEDS: RIVAROXABAN 10 MG TAB PO SCH (08:54)
[2018-09-17] MEDS: ACETAMINOPHEN 500 MG TAB PO SCH (08:54)
[2018-09-17] MEDS: GABAPENTIN 300 MG CAP PO SCH (08:55)
[2018-09-17] MEDS: SENNOSIDES/DOCUSATE SODIUM TAB PO SCH (08:55)
[2018-09-17] MEDS: INSULIN GLARGINE 100 UNITS/ML UNIT SC SCH (10:06)
[2018-09-17] MEDS: INSULIN LISPRO 100 UNIT/ML SC SCH ×2 (10:09→11:56)
[2018-09-17] MEDS: HYDROmorphONE/DILAUDID 2 MG TAB PO PRN (10:50)
--- NOTE | 2018-09-17 11:51 | PDIAF ---
- Diagnosis Diagnosis: acute right femoral fx s/p ORIF Code Status: Full Code - Medication Management Discharge Medications: electronically signed and located in the Home Medication List. PICC Care - Routine: N/A - Orders Services needed: Physical Therapy, Occupational Therapy Diet Recommendation: ADA 2000 consistent carb Diet Texture: Regular Texture Diet Additional Instructions: follow up w Dr Sheffield in two weeks wean off the pain medications over the next few weeks take good care of yourself - Follow Up Care Current Providers and Referrals: Delroy Sheffield MD [Medical Doctor] - Patient,NotPresent [Unknown] - As per Instructions
--- NOTE | 2018-09-17 12:16 | ASMTCMCOM ---
CM Note CM Note Notes: Pt medically stable for d/c to [facility] who have insurance auth. Simon scheduled wc transport for 1315. Orders sent in [employer]. TRISH Serra called report. Date Signed: 09/17/2018 12:15 PM Electronically Signed By:EDSON Colbert
--- NOTE | 2018-09-17 13:30 | GDS ---
DISCHARGE DIAGNOSES: 1. Acute right femur fracture. 2. Acute on chronic pain. 3. Hyperkalemia. 4. Tachycardia. 5. Hypercalcemia. 6. Anemia. 7. Diabetes type 2. 8. Hyperlipidemia. CONSULTATION: 1. Dr. Sanjiv Parsons. 2. Dr. Delroy Sheffield. HISTORY: Briefly, the patient is a 53-year-old woman who presented to the emergency room after she fell and fractured her right femur. She was at home getting out of the shower. She had previously broken the same femur approximately 40 years ago. She has chronic pain and recurrent hardware bone infections. There was concern that she was developing probable AVN of the femoral head, so she saw Dr. Bravo and had the femoral kiara removed in July in preparation for hip replacement surgery. She was discharged after the procedure to a custodial facility and then sent home. When she went home was when she sustained a fall, fracturing her femur. Today, she will be discharged to a custodial facility for rehab. She will follow up with Dr. Sheffield in the outpatient setting. HOSPITAL COURSE: 1. Acute right femur fracture. She is status post ORIF. She is moving and doing quite well. 2. Acute on chronic pain with continuous opioid dependency. Oral Dilaudid has been added to her regimen of oxy. Recommendation is for the custodial facility to slowly wean her over the next few weeks off pain medications. 3. Hyperkalemia, resolved. 4. Tachycardia. This is mostly resolved. I think she has a component of some anxiety. A CTA was performed, which is negative for pulmonary emboli. 5. Hypercalcemia, resolved. 6. Anemia, stable. 7. Diabetes type 2, on sliding scale. 8. Hyperlipidemia, on statin therapy. 9. DVT prophylaxis, on Xarelto. DISCHARGE CONDITION: Stable. Blood pressure is 134/73, heart rate of 103, respiratory rate of 17, O2 sats on room air 95%, temperature 36.4 Celsius. DISCHARGE MEDICATIONS: Please see the EMR. DISCHARGE INSTRUCTIONS: 1. To follow up with Dr. Sheffield in the next 1-2 weeks. 2. If she develops fever, chills, chest pain, or shortness of breath, return to the ER. 3. To slowly wean the patient off her narcotics while at the custodial facility. Greater than 30 minutes discharging and coordinating her care. /[id number]/MODL MTDD
--- NOTE | 2018-09-17 14:42 | ASDISCHSUM ---
Discharge Information Plan Status:SNF Medically Cleared to Leave: Discharge Date:09/17/2018 01:18 PM CM D/C Disposition: ADT D/C [facility] Projected Discharge Date:09/12/2018 11:00 AM Transportation at D/C: Discharge Delay Reason: Follow-Up Date:09/12/2018 11:00 AM Discharge Slot: Final Diagnosis: Placement Information Referral Type:*Chcf/SNF Referral ID:[id number] Provider Name:[facility] Address 1:[address] Address 2: City:[place] Selection Factors: State:[place] Patient Contact Information Contact Name:PERI Relationship:Son Address: City:[place] Alternate Phone: State/Zip Code:[place] Email: Financial Information Financial Class:[facility] Primary Plan Desc[facility] Primary Plan Number:[id number] Secondary Plan Desc: Secondary Plan Number: Assessment Information [facility] CM Progress Note CM Note CM Note Notes: Pt in for R femur fx, to OR likely tomorrow. Pt was at [facility] a couple times in July 2018 and d/c to [facility] where her son works. Pt resides alone. PT/OT ordered. CM to follow for d/c planning. D/c plan of care is TBD. Date Signed: 09/09/2018 02:45 PM Electronically Signed By:EDSON Colbert [facility] CM Progress Note CM Note CM Note Notes: PT to [facility]ina 09/11 as pt on bed rest and scheduled for surgery today. CM to follow. D/c plan of care is TBD Date Signed: 09/10/2018 10:26 AM Electronically Signed By:EDSON Colbert [facility] CM Progress Note CM Note CM Note Notes: Spoke with pt in the room. Pt was admitted for right femur fracture and had orthopedic surgery yesterday. Pt lives alone in a third floor apartment with no elevator. Pt has son who works at [facility] [employer] [facility] and pt went there after her last surgery in July. Referral sent to [facility], and they reported that she has used only 21 of her 90 covered Rehab days with them and is eligible for coverage, however, pt will have to meet her deductible as of Sep 14, 2018 before coverage starts. Pt states that she "doesn't have it" and will "just have to go home to her 3rd floor apartment." CM suggested she call friends to see if she could find a place to stay in the short term. 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 PT is recommending SNF. CM to follow. D/C Plans: TBD Date Signed: 09/11/2018 02:14 PM Electronically Signed By:Hallie Luna [facility] CM Progress Note CM Note CM Note Notes: ADDENDUM: Pt notified CM that she would be interested in Medicaid screening to see if she will qualify for SNF through Medicaid. Email sent to [employer] for screening. CM to follow. Date Signed: 09/11/2018 03:44 PM Electronically Signed By:Hallie Luna LACE LACE Acuity / Level of Answers: Yes Care: Did the patient have an inpatient admission? Comorbidities - select Answers: Diabetes (uncontrolled or all that apply controlled) Opioid dependence / Chronic pain Other Notes: HLD; HTN # of Emergency department Answers: 1-2 visits in the last 6 months Social determinants Answers: Mental health diagnosis (anxiety, depression, pers onality disorders, etc.) Score: 13 Date Signed: 09/17/2018 02:41 PM Electronically Signed By:EDSON Colbert [facility] Progress Note CM Note CM Note Notes: Nelda met with the patient who states she does not want to do the Medicaid application because [facility] does not take Medicaid and this is the facility she wants to g to. Left a message for [facility] at [phone], ext. [phone] to see if we could negotiate with them since it is far more expensive to get rehab in the hospital. They will not be back in the office until Thursday. Met with the patient who is extremely anxious about not having the $800.00 to pay. Her friends have started a go fund me page to see if they can raise the amount. The only other option is to live with a friend who has a one story home or an apartment on the ground. Patient has not worked since July. CM will follow. Date Signed: 09/13/2018 11:56 AM Electronically Signed By:Kasandra Lauren LCSW [facility] CM Progress Note CM Note CM Note Notes: [facility] cannot waive pt $800 deductible or SNF daily copay of 20% (~$110/day), pt aware and reports she is $85 away from raising $800. Pt aware of daily co-pay and reports she has a plan to pay it. Batsheva with [employer] is updated and will send for auth after meeting with pt because pt does still owes [employer] from her July stay. D/c plan of care: [facility] Date Signed: 09/15/2018 01:58 PM Electronically Signed By:EDSON Colbert [facility] CM Progress Note CM Note CM Note Notes: Pt tells CM her "feelings are hurt" because her son told her [facility] is concerned about pt paying the daily co-pay while she still owes them from her July stay. While [facility] can accept pt she now wants to consider applying for Medicaid as a secondary and going to a Medicaid SNF. Dianne with [employer] is alerted and will assess pt. Date Signed: 09/15/2018 03:56 PM Electronically Signed By:EDSON Colbert [facility] Progress Note CM Note CM Note Notes: D/W WIG STYLIST, patient is ready for d/c today. Spoke with [facility], insurance auth still pending. Met with patient to discuss dispo plan. Patient very upset and stated [facility] does not feel like they are the best facility to meet my needs as I may need a longer recovery than able to receive there. Patient also has an oustanding bill due at [facility] from a previoius stay. CM reiterated to patient that she is medically stable and a decision needs to be made. I have asked [employer] to rescreen patient for Medicaid to hopefully help with copay costs. Patient [facility] A referral has been made to and understands patient has a d/c order. Auth will be initiated once reviews and feels patient is appropriate. Spoke with Batsheva at [facility], she confirmed that they are concerned about the amount of days/weeks patient may need at rehab and that a LTC facility may be a better choice. Batsheva to cancel auth for [facility]. Plan: Hopefully [facility] Date Signed: 09/16/2018 12:25 PM Electronically Signed By:Ailyn Moran RN [facility] ISELA Progress Note CM Note CM Note Notes: All updated therapy notes from 09/16 sent to [facility] and to [facility] (per nurse). Zoila at [facility] to be on site this afternoon to meet with patient. Awaiting final approval from [facility] and [facility]. Updated patient, RN and WIG STYLIST. Plan: Likely [facility] Date Signed: 09/16/2018 04:09 PM Electronically Signed By:Ailyn Moran RN [facility] CM Progress Note CM Note CM Note Notes: Pt medically stable for d/c to [facility] who have insurance auth. Simon scheduled wc transport for 1315. Orders sent in [employer]. TRISH Serra called report. Date Signed: 09/17/2018 12:15 PM Electronically Signed By:EDSON Colbert Intervention Information
== END 2018-09-17 13:18 | DRG 481 ==
LOC: EDUNIT# → F3N 11:27 → OBSVTOIN 18:37
PROVIDERS: ADMIT Internal Medicine; ATTEND Internal Medicine
PROC: 0QH604Z Insertion of Internal Fixation Device into Right Upper Femur, Open Approach (ICD-10-PCS; principal; 2018-09-10 14:45)
DX: S72.355A Nondisplaced comminuted fracture of shaft of left femur, initial encounter for closed fracture (principal); W19.XXXA Unspecified fall, initial encounter; Y92.012 Bathroom of single-family (private) house as the place of occurrence of the external cause; Y93.F1 Activity, caregiving, bathing; Z87.81 Personal history of (healed) traumatic fracture; E87.5 Hyperkalemia; E83.52 Hypercalcemia; G89.11 Acute pain due to trauma; G89.29 Other chronic pain; F11.20 Opioid dependence, uncomplicated; D53.9 Nutritional anemia, unspecified; E11.9 Type 2 diabetes mellitus without complications; E03.2 Hypothyroidism due to medicaments and other exogenous substances; I10 Essential (primary) hypertension; E78.5 Hyperlipidemia, unspecified; M16.11 Unilateral primary osteoarthritis, right hip; J45.909 Unspecified asthma, uncomplicated; Z87.442 Personal history of urinary calculi; Z85.43 Personal history of malignant neoplasm of ovary; Z79.4 Long term (current) use of insulin
CPT/HCPCS: 96374; 97110-GP; 97116-GP; 97161-GP; 97166-GO; 97530-GO; 97530-GP; 97535-GO; C1713; C1769; J0690; J1170; J1200; J1815; J2250; J2270; J2405; J2704; J3010; Q9967

== ENCOUNTER → 2018-11-04 | Outpatient (CLI) | payer OTHER, MEDICAID ==
[~2018-11-04] MED LIST changes: +BUPIVACAINE 0.25% 30 ML SDV ONE; +DEPO METHYLPREDNISOLONE 40 MG/ML SDV ONE; -GADOBUTROL 10 ML VIAL IVP ONE; +IOPAMIDOL (ISOVUE 370) 100 ML BTL IV ONE; +LIDOCAINE 1% 300 MG/30 ML SDV ONE
== END ==
LOC: FIMAGING 09:49
PROVIDERS: ATTEND Orthopaedic Surgery
PROC: 3E0U3KZ Introduction of Other Diagnostic Substance into Joints, Percutaneous Approach (ICD-10-PCS; principal; 2018-11-04)
DX: M25.561 Pain in right knee (principal); M25.361 Other instability, right knee; M24.10 Other articular cartilage disorders, unspecified site; S72.401D Unspecified fracture of lower end of right femur, subsequent encounter for closed fracture with routine healing
CPT/HCPCS: J1030; Q9967

== ENCOUNTER 2018-11-09 05:35 | Inpatient (IN) | payer OTHER ==
[2018-10-29 13:15] LABS: PLATELET COUNT 282 10^3/uL (150-400)
--- NOTE | 2018-11-07 03:38 | GHP ---
[f rep st] HISTORY AND PHYSICAL CURRENT COMPLAINT: Right hip pain. HISTORY OF PRESENT ILLNESS: The patient is a 53-year-old female with a history of right hip avascular necrosis causing her pain. After having undergone a hardware removal and an ORIF of her distal femur for a fracture, she is here for total hip arthroplasty on the right side to resolve her pain from the AVN. ALLERGIES: Include amoxicillin, latex, tetracycline, and Zithromax. CURRENT MEDICATIONS: Include acyclovir, alprazolam, insulin, cyclobenzaprine, gabapentin, Humalog, levothyroxine, Singulair, Soliqua, tramadol. PAST MEDICAL HISTORY: Prior medical problems include arthritis, asthma, diabetes, reflux, thyroid problems PAST SURGICAL HISTORY: Prior surgeries include a right femoral rodding in 1977 , GI surgery in 2001, neurosurgery in 2004, hardware removal in 2017, and an ORIF of her distal femur in 2018. SOCIAL HISTORY: She lists no smoking and no alcohol intake. PHYSICAL EXAMINATION: HEENT: Patient's pupils are equal, round, and reactive to light. CHEST: Clear to auscultation. HEART: Regular rate and rhythm. ABDOMEN: Soft and nontender. MUSCULOSKELETAL: She has no pain to passive range of motion through the knee but does have pain through passive range of motion through the hip. She is tender at the distal portion of the lateral femoral condyle over the area of her prior scar, but she is nontender at the proximal scars from her hardware removal. ASSESSMENT AND PLAN: Patient is status post right hip avascular necrosis. The plan is to take her to the operating room to undergo a right total hip arthroplasty. /[id number]/MODL MTDD
[2018-11-09] MEDS ORDERED: ceFAZolin 2 GM/DEXTROSE 100 ML IV ONE (05:59)
[2018-11-09] MEDS ORDERED: PREGABALIN 150 MG CAP PO ONE (05:59)
[2018-11-09] MEDS ORDERED: LR 1,000 ML IV SCH ×2 (05:59→10:00)
[2018-11-09] MEDS ORDERED: MIDAZOLAM 2 MG/2 ML VIAL IVP ONE (06:49)
--- NOTE | 2018-11-09 06:49 | PDANEPAE ---
ANE History of Present Illness OA here R CHRISTINE ANE Past Medical History - Cardiovascular History Hx Hypertension: No Hx Arrhythmias: Yes Hx Chest Pain: No Hx Coronary Artery / Peripheral Vascular Disease: No Hx CHF / Valvular Disease: No Hx Palpitations: No Cardiovascular History Comment: INTERMITTENT TACHYCARDIA. BP RUNS LOW. MURMUR - Pulmonary History Hx COPD: No Hx Asthma/Reactive Airway Disease: Yes Hx Recent Upper Respiratory Infection: No Hx Oxygen in Use at Home: No Hx Sleep Apnea: No Sleep Apnea Screening Result - Last Documented: Positive Pulmonary History Comment: ASTHMA TRIGGERS ENVIRONMENTAL/ANXIETY HAS RESCUE INHALER - Neurologic History Hx Cerebrovascular Accident: No Hx Seizures: No Hx Dementia: No - Endocrine History Hx Diabetes: Yes Endocrine History Comment: IDDM. HYPOTHYROID - Renal History Hx Renal Disorders: Yes Renal History Comment: KIDNEY STONES. UTI 02/2018 - Liver History Hx Hepatic Disorders: No - Neurological & Psychiatric Hx Hx Neurological and Psychiatric Disorders: Yes Neurological / Psychiatric History Comment: ANXIETY - Cancer History Hx Cancer: No - Congenital Disorder History Hx Congenital Disorders: No - GI History Hx Gastrointestinal Disorders: Yes Gastrointestinal History Comment: DIVERTICULITIS. GERD NO RX USED - Other Health History Other Health History: CHRONIC SINUSITIS. OSTEOMYLETITIS 2013 - Chronic Pain History Chronic Pain: Yes (RT KNEE,HIP) - Surgical History Prior Surgeries: ORIF RT FEMUR 09/11/18. INTERNAL BLEEDING S. RISHI ARM ORIF. HYSTERECTOMY. BOWEL RESECTION DIVERTICULIUM. LUMBAR LAMINECTOMY. CERVICAL FUSION. T&A ANE Review of Systems Review of Systems: - Exercise capacity Exercise capacity: >=4 METS ANE Patient History - Allergies Allergies/Adverse Reactions: amoxicillin Allergy (Verified 08/04/18 18:57) Hives azithromycin Allergy (Verified 08/04/18 18:57) Hives latex Allergy (Verified 08/04/18 18:57) Hives Sulfa (Sulfonamide Antibiotics) Allergy (Verified 10/21/18 10:32) Hives tetracycline Allergy (Verified 08/04/18 18:57) Hives - Home Medications Home medications: home medication list seen and reviewed Home Medications: Montelukast Sodium [Singulair 10 mg (*)] 10 mg PO HS 02/21/17 [Last Taken 08:00] Gabapentin [Neurontin 300 MG (*)] 900 mg PO DAILY 07/12/18 [Last Taken 11/08/18 08:00] Levothyroxine [Synthroid 88 mcg (*)] 88 mcg PO DAILY06 07/12/18 [Last Taken 05:00] Albuterol [Proventil Inhaler HFA (*)] 1 - 2 puffs IH Q4H PRN 07/13/18 [Last Taken 06/20/18] ALPRAZolam [Xanax 0.25 MG (*)] 0.25 mg PO DAILY PRN 08/04/18 [Last Taken 05:00] Acyclovir [Zovirax 200 mg (*)] 200 mg PO 5XD PRN 08/04/18 [Last Taken 07/21/18] Insulin Glargine/Lixisenatide [Soliqua 100 Unit-33 Mcg/ml Pen] 24 units SQ DAILY 09/09/18 [Last Taken 09/08/18] morphINE IR [morphINE IR 30 mg (*)] 30 mg PO Q4HRS PRN 10/21/18 [Last Taken Unknown] oxyCODONE IR [Oxycodone Ir (*)] 10 mg PO Q3HRS PRN 10/21/18 [Last Taken 05:00 10MG] - NPO status NPO Since - Liquids (Date): 11/08/18 NPO Since - Liquids (Time): 22:00 NPO Since - Solids (Date): 11/08/18 NPO Since - Solids (Time): 22:00 - Anes Hx Anes Hx: post operative nausea - Smoking Hx Smoking Status: Never smoked - Alcohol Use Alcohol Use: None - Family Anes Hx Family Anes Hx: none ANE Labs/Vital Signs - Labs Result Diagrams: 10/29/18 12:47 10/29/18 12:47 - Vital Signs Vital Signs: reviewed preoperatively; see RN documention for details Height: 162.56 cm Weight: 68.039 kg ANE Physical Exam - Airway Neck exam: FROM Mallampati Score: Class 2 Mouth exam: normal dental/mouth exam - Pulmonary Pulmonary: no respiratory distress, clear to auscultation - Cardiovascular Cardiovascular: regular rate and rhythym, no murmur, rub, or gallop - ASA Status ASA Status: III ANE Anesthesia Plan Anesthesia Plan: GA with mask, spinal Total IV Anesthesia: Yes
[2018-11-09] MEDS ORDERED: TRANEXAMIC ACID 3,000 MG/50 ML BAG IRR ONE (06:50)
[2018-11-09] MEDS ORDERED: BUPIVACAINE/EPI 0.5% 30 ML SDV ONE (06:50)
[2018-11-09] MEDS ORDERED: POLYMYXIN B SULFATE 500,000 UNIT/10 ML SYR IRR ONE (06:51)
[2018-11-09] MEDS ORDERED: BACITRACIN 50,000 UNITS/10 ML SYR IRR ONE (06:51)
[2018-11-09] MEDS ORDERED: PROPOFOL/EMULSION 500 MG/50 ML BOTTLE IV ONE ×2 (06:55→09:20)
[2018-11-09] MEDS ORDERED: TRANEXAMIC ACID 3,000 MG in NS (SYRINGE) 50 ML IRR ONE (07:15)
[2018-11-09] MEDS ORDERED: ROPIVACAINE 0.2% 80 MG, EPINEPHrine 0.2 MG, KETOROLAC TROMETHAMINE 30 MG, morphINE 10 M... IU ONE (07:15)
[2018-11-09] MEDS ORDERED: BUPIVACAINE 0.5% 30 ML SDV ONE (07:23)
[2018-11-09] MEDS ORDERED: DEPO METHYLPREDNISOLONE 40 MG/ML SDV ONE (07:23)
[2018-11-09] MEDS ORDERED: EPINEPHrine 1 MG/ML INJ ONE (07:23)
[2018-11-09] MEDS ORDERED: LIDO/EPI 1% **for epidural** 30 ML SDV ONE (07:24)
[2018-11-09] MEDS ORDERED: PROMETHAZINE HCL 25 MG/ML INJ IVP PRN ×2 (09:34→09:43)
[2018-11-09] MEDS ORDERED: TEMAZEPAM 15 MG CAP PO PRN (09:34)
[2018-11-09] MEDS ORDERED: ONDANSETRON DISINTEGRATING 4 MG TAB PO PRN (09:34)
[2018-11-09] MEDS ORDERED: TAPENTADOL HCL 50 MG TAB PO PRN (09:34)
[2018-11-09] MEDS ORDERED: POLYETHYLENE GLYCOL 3350 17 GM PKT PO PRN ×2 (09:34→09:36)
[2018-11-09] MEDS ORDERED: CYCLOBENZAPRINE 10 MG TAB PO PRN (09:34)
[2018-11-09] MEDS ORDERED: DIPHENOXYLATE/ATROPINE LOMOTIL 1 TAB PO PRN (09:34)
[2018-11-09] MEDS ORDERED: PROMETHAZINE HCL 25 MG SUPPR PR PRN (09:34)
[2018-11-09] MEDS ORDERED: ONDANSETRON 4 MG/2 ML VIAL IVP PRN ×2 (09:34→09:43)
[2018-11-09] MEDS ORDERED: LACTULOSE 20 GM/30 ML UDCUP PO PRN (09:34)
[2018-11-09] MEDS ORDERED: BISACODYL 10 MG SUPP PR PRN (09:34)
[2018-11-09] MEDS ORDERED: METOCLOPRAMIDE 10 MG/2 ML VIAL IVP PRN (09:34)
[2018-11-09] MEDS ORDERED: diphenhydrAMINE 25 MG CAP PO PRN (09:34)
[2018-11-09] MEDS ORDERED: MAGNESIUM HYDROXIDE 30 ML UDCUP PO PRN (09:34)
--- NOTE | 2018-11-09 09:34 | POSTOPPROG ---
Post Op Note Date of Operation: 11/09/18 Surgeon: Daphney Bravo Merchandising Coordinator: coltrain Anesthesia: IV Sedation, Spinal Pre-op Diagnosis: r hip avn with r itb syndrome Procedure: r sofia with fluoro with lateral knee steroid injection Inf/Abcess present in the surg proc area at time of surgery?: No Depth: Deep Incisional (Fascial) EBL: 100-500
[2018-11-09] MEDS ORDERED: ALBUTEROL 60 PUFFS/8 GM MDI IH PRN (09:36)
[2018-11-09] MEDS ORDERED: ACYCLOVIR 200 MG CAP PO PRN (09:36)
[2018-11-09] MEDS ORDERED: HYDROCODONE/APAP 5/325 TAB PO PRN (09:43)
[2018-11-09] MEDS ORDERED: oxyCODONE IR 5 MG TAB PO PRN (09:43)
[2018-11-09] MEDS ORDERED: DIAZEPAM 5 MG/ML 1 ML SYR IVP PRN (09:43)
[2018-11-09] MEDS ORDERED: NALOXONE HCL 0.4 MG/ML INJ IVP PRN (09:43)
[2018-11-09] MEDS ORDERED: ACETAMINOPHEN 500 MG TAB PO PRN (09:43)
--- NOTE | 2018-11-09 09:48 | POSTANESTH ---
Post Anesthetic Evaluation Cardiovascular Status: Normal, Stable, Similar to Pre-Op Cond Respiratory Status: Normal, Stable, Similar to Pre-op Cond. Level of Consciousness/Mental Status: Can Participate in Eval, Alert and Oriented Pain Control: Adequate, Prn Tx Ordered Nausea/Vomiting Control: Adequate, Prn Tx Ordered Complications Possibly Related to Anesthesia: None Noted
[2018-11-09] MEDS ORDERED: fentaNYL 100 MCG/2 ML INJ ONE (10:09)
[2018-11-09] MEDS: fentaNYL 100 MCG/2 ML INJ IVP PRN ×2 (10:13→11:01)
[2018-11-09] MEDS ORDERED: HYDROmorphONE/DILAUDID 2 MG/ML INJ ONE (10:20)
[2018-11-09] MEDS: HYDROmorphONE/DILAUDID 2 MG/ML INJ IVP PRN ×2 (10:21→11:01)
[2018-11-09] MEDS ORDERED: oxyCODONE IR 5 MG TAB ONE (10:36)
--- NOTE | 2018-11-09 11:11 | GOP ---
[f rep st] OPERATIVE REPORT DATE OF OPERATION: 11/09/2018 SURGEON: Daphney Bravo MD FILTER WORKER: Desmond Ma, MEGANA, LSA , whose presence was medically necessary. ANESTHESIA: Spinal with IV sedation. PREOPERATIVE DIAGNOSIS: Right hip avascular necrosis, as well as right iliotibial band syndrome. POSTOPERATIVE DIAGNOSIS: Right hip avascular necrosis, as well as right iliotibial band syndrome. PROCEDURE PERFORMED: Right total hip arthroplasty with fluoroscopy, as well as right knee injection. FINDINGS: INDICATIONS: This is a 53-year-old female with a several-month history of right hip pain worsening w ith use and with time. She has undergone MRIs revealing avascular necrosis of the femoral head. She had a prior intramedullary kiara within the femur from a fracture approximately 40 years ago that had to be removed. Secondary to removal she had tripped and fell, broke the distal portion of her femur, which had to be fixed approximately 2 months ago. That has healed uneventfully and she now wishes t o have surgery in order to resolve the problem. She does have pain at the lateral portion of her kne e, which caused the knee to buckle. CT arthrogram revealed no internal derangement to the knee; ther efore, the tight iliotibial band was thought to be the main culprit, and she wished to have an inject ion at the end of the surgery for this. DESCRIPTION OF PROCEDURE: Patient was brought to the operating room after the right side had been id entified as the correct side by the patient, nurse, and physician. Once in the operating room, she w as given an epidural nerve block, placed on traction table with a well-padded peroneal post, and then given IV sedation. Once on the traction table, fluoroscopy was used to ensure proper positioning of the pelvis and leg length. Once this was ensured, the arch table was locked into place onto the charlie or. The right hip and flank were then sterilely prepped and draped in usual fashion using GSI soluti on. Once prepped and draped, a linear incision was made 2 cm lateral and inferior to the ASIS and headed in a 15-degree posterior direction, with sharp dissection carried down through the skin and subcutane ous layers, with bleeding controlled using electrocautery. The fascia overlying the TFL was incised in line with its fibers and the muscle belly retracted laterally. Blunt dissection down into the bas e of the femoral sheath revealed the circumflex vessels, which were cauterized. Deeper dissection wa s carried down onto the hip itself. Once the capsule was found, 2 blunt Cobra retractors were placed , 1 at the superior portion of the capsule and the inferior portion and 1 at the inferior portion of the capsule. The anterior capsule was then excised. Oscillating saw was used to cut across the inte rtrochanteric line. The leg was externally rotated 40 degrees and a corkscrew was used to remove the head. The acetabular pulvinar, as well as the labrum were removed. Sequential reamers were used st arting at a size 42 and extending up to a size 48 getting good bleeding bone and good peripheral fit. Trial was noted to fit securely. We checked under fluoroscopy to check position. Once in good pos ition, trial was removed and a Trident II Tritanium cluster acetabular shell 48 mm in diameter from [employer] was put into place and noted to fit securely. Two screws were placed in the posterior and sup erior portion of the cup securing it in place and a manhole cover placed at its base. At which point , a 48 x 28 mm ceramic liner was put into place and noted to fit securely. It was checked with a Anant er elevator to ensure proper fit. Attention was then turned to the proximal femur, which was externally rotated to 90 degrees. Care wa s taken in order protect the fracture that had been fixed in the distal femur. Capsular dissection w as done on the anterior portion of the femoral neck, as well as the superior portion. Once an adequa te capsular release had been performed, the leg was placed into shallow extension, shallow abduction in order to place less stress across the femur. Curette was used to remove medullary bone from the p roximal portion of the femur and a rongeur used to remove the superior portion of the femoral neck. There was abundant amount of callus formation around the greater trochanter, secondary to prior hardw are removal. Canal finder was passed in the proximal femur and then sequential broaches were used up to a size 4, which was noted to fit securely. Trial reduction was performed. It was noted to have a good fit within the proximal femur, as well as good length; therefore, the hip was re-dislocated, p laced in slight extension and adduction with care taken to protect the femur, and at which point, a s ize 4 Accolade II 127 degree neck stem was put into place and noted to fit securely. Again trial red uctions were performed in order to ensure proper lengthening and stability. It was found that a -2.7 head seemed to fit best; therefore, hip was re-dislocated. The trunnion was cleaned and dried and a 28 x -2.7 mm Sami ceramic head was put into place and noted to fit securely. The leg was then re duced. Fluoroscopy was used to ensure that the distal femur remained intact and no new fractures wer e noted, as well as positioning of the pelvis. The wound was thoroughly irrigated with tranexamic acid. Joint cocktail was injected into the playground official ior capsule, as well as the hip flexors, the TFL and the periosteum around the acetabulum and femur. Wound was then closed in layers to include 0 PDS barbed suture in a running whip stitch for the fasc ial layer overlying the TFL, 0 Vicryl and 2-0 Vicryl suture for subcutaneous layers, and a 3-0 V-Loc suture, and a running subcuticular stitch for the skin. 30 cc of Marcaine was infused around the act ual incision itself. The wound was then dressed with Steri-Strips, Xeroform, 4 x 4, and Tegaderm. Once she was undraped, an injection was given near the lateral femoral condyle directly over the area of her plate and iliotibial band using lidocaine, Marcaine, and Depo-Medrol. She was then taken out of her leg holders. Peroneal post was removed. Her leg lengths were noted to be nearly equal. She was then transferred onto a bed and sent to recovery room in good condition. /[id number]/MODL
--- NOTE | 2018-11-09 11:54 | PDMN ---
Medical Necessity Medical necessity: Pt meets inpt criteria per MD order and [facility] S-560, Hip Arthroplasty, A-2 days, [facility] inpt only list. 53 y/o w/worsening R hip pain, avascular necrosis of the fem head and R knee pain admitted for R CHRISTINE and R knee injection and post-op care.
[2018-11-09] MEDS ORDERED: INSULIN LISPRO 100 UNIT/ML SC SCH (12:00)
[2018-11-09] MEDS: traMADol 50 MG TAB PO SCH ×2 (12:48→18:22)
[2018-11-09] MEDS: ACETAMINOPHEN 325 MG TAB PO SCH ×2 (12:49→18:23)
[2018-11-09] MEDS: KETOROLAC 15 MG/1 ML SDV IVP SCH ×2 (12:49→22:14)
[2018-11-09] MEDS: oxyCODONE IR 5 MG TAB PO PRN ×3 (14:28→22:21)
[2018-11-09] MEDS ORDERED: ceFAZolin 2 GM/DEXTROSE 100 ML IV SCH (15:30)
[2018-11-09] MEDS: CYCLOBENZAPRINE 10 MG TAB PO SCH ×2 (16:03→22:11)
[2018-11-09] MEDS: ALPRAZolam 0.25 MG TAB PO PRN (18:29)
[2018-11-09] MEDS: INSULIN LISPRO 100 UNIT/ML SC SCH (18:31)
[2018-11-09] MEDS: CEPHALEXIN 500 MG CAP PO SCH (22:11)
[2018-11-09] MEDS: FAMOTIDINE 20 MG TAB PO SCH (22:12)
[2018-11-09] MEDS: GABAPENTIN 300 MG CAP PO SCH (22:12)
[2018-11-09] MEDS: MONTELUKAST SODIUM 10 MG TAB PO SCH (22:14)
[2018-11-09] MEDS: SENNOSIDES/DOCUSATE SODIUM TAB PO SCH (22:15)
[2018-11-10] MEDS: ACETAMINOPHEN 325 MG TAB PO SCH ×5 (00:04→23:25)
[2018-11-10] MEDS: KETOROLAC 15 MG/1 ML SDV IVP SCH ×2 (00:05→06:23)
[2018-11-10] MEDS: traMADol 50 MG TAB PO SCH ×5 (00:05→23:24)
[2018-11-10] MEDS: oxyCODONE IR 5 MG TAB PO PRN ×6 (01:18→20:24)
[2018-11-10] MEDS: CEPHALEXIN 500 MG CAP PO SCH ×3 (04:18→16:03)
[2018-11-10] MEDS: LEVOTHYROXINE 88 MCG TAB PO SCH (06:21)
[2018-11-10] MEDS: GABAPENTIN 300 MG CAP PO SCH ×2 (09:53→20:24)
[2018-11-10] MEDS: ALPRAZolam 0.25 MG TAB PO PRN (09:53)
[2018-11-10] MEDS: CYCLOBENZAPRINE 10 MG TAB PO SCH ×3 (09:54→21:57)
[2018-11-10] MEDS: FAMOTIDINE 20 MG TAB PO SCH ×2 (09:54→20:24)
[2018-11-10] MEDS: RIVAROXABAN 10 MG TAB PO SCH (09:54)
[2018-11-10] MEDS: INSULIN LISPRO 100 UNIT/ML SC SCH ×3 (09:55→17:25)
[2018-11-10] MEDS: INSULIN GLARGINE SQ SCH (09:59)
[2018-11-10] MEDS: LIXISENATIDE SQ SCH (09:59)
[2018-11-10] MEDS: SENNOSIDES/DOCUSATE SODIUM TAB PO SCH ×2 (11:18→20:25)
--- NOTE | 2018-11-10 11:21 | ASMTCMCOM ---
CM Note CM Note Notes: Pt had OA of hip, resides alone. PT/OT rec SNF, pt requests referral to [facility]. Referral sent to , they can accept pt and have sent for [employer] insurance authorization. CM to follow. D/c plan of care: [facility] Date Signed: 11/10/2018 11:20 AM Electronically Signed By:EDSON Colbert
--- NOTE | 2018-11-10 14:06 | ASMTCMCOM ---
CM Note CM Note Notes: [facility] has [employer] auth for SNF, Simon at is updated pt is not medically ready for d/c today. CM to follow. D/c plan of care: [facility] SNF Date Signed: 11/10/2018 02:05 PM Electronically Signed By:EDSON Colbert
--- NOTE | 2018-11-10 19:01 | SOAPPROG ---
SOAP Progress Note Assessment/Plan: Assessment: Maryellen is POD#1 s/p RTHA. She reports pain has been persistent since surgery despite oxycodone. She also reports she was getting off of the commode with therapy when she felt her hip "pop". She has had no increase in pain since the incident and was able to ambulate back to bed without problem PE: Dressing clean and dry. Minimal pain with log roll. Calf soft to compression without pain. Leg lengths are equal. NV intact LLE Plan: Radiograph of pelvis ordered to evaluate prosthesis. Dilaudid 2mg po for pain. Continue PT/OT 11/10/18 18:59 Objective: Vital Signs Temp Pulse Resp BP Pulse Ox 36.8 C 98 16 116/66 96 11/10/18 15:35 11/10/18 15:35 11/10/18 15:35 11/10/18 15:35 11/10/18 15:35 Laboratory Results 11/10/18 08:25 10/29/18 12:47 11/09/18 11/10/18 11/11/18 05:59 05:59 05:59 Intake Total 1955 1500 Output Total 3020 1550 Balance -1065 -50 ICD10 Worksheet Patient Problems: Problems Problem Status Onset Bronchitis Acute Chest pain Acute Epigastric abdominal pain Acute Femur fracture, right Acute Tachycardia Acute Vomiting Acute
[2018-11-10] MEDS: MONTELUKAST SODIUM 10 MG TAB PO SCH (20:24)
[2018-11-10] MEDS: HYDROmorphONE/DILAUDID 2 MG TAB PO PRN (23:25)
[2018-11-11] MEDS: HYDROmorphONE/DILAUDID 2 MG TAB PO PRN ×3 (03:38→13:52)
[2018-11-11] MEDS: ACETAMINOPHEN 325 MG TAB PO SCH ×2 (05:21→11:00)
[2018-11-11] MEDS: LEVOTHYROXINE 88 MCG TAB PO SCH (05:21)
[2018-11-11] MEDS: traMADol 50 MG TAB PO SCH ×3 (05:21→11:00)
[2018-11-11] MEDS: oxyCODONE IR 5 MG TAB PO PRN ×2 (06:47→12:06)
[2018-11-11 08:14] VITALS: BP 136/64
[2018-11-11] MEDS: INSULIN LISPRO 100 UNIT/ML SC SCH ×2 (08:41→12:05)
[2018-11-11] MEDS: SENNOSIDES/DOCUSATE SODIUM TAB PO SCH (08:47)
[2018-11-11] MEDS: RIVAROXABAN 10 MG TAB PO SCH (08:47)
[2018-11-11] MEDS: GABAPENTIN 300 MG CAP PO SCH (08:47)
[2018-11-11] MEDS: FAMOTIDINE 20 MG TAB PO SCH (08:47)
[2018-11-11] MEDS: CYCLOBENZAPRINE 10 MG TAB PO SCH (08:48)
[2018-11-11] MEDS: INSULIN GLARGINE SQ SCH (08:51)
[2018-11-11] MEDS: LIXISENATIDE SQ SCH (08:51)
--- NOTE | 2018-11-11 12:58 | PDIAF ---
- Diagnosis Diagnosis: Right total hip arthroplasty Code Status: Full Code - Medication Management Discharge Medications: electronically signed and located in the Home Medication List. - Orders Services needed: Physical Therapy, Occupational Therapy Diet Recommendation: no restrictions on diet Diet Texture: Regular Texture Diet Additional Instructions: WBAT RLE. Keep dressing clean and dry- May shower. Anterior hip precautions-- keep foot from internally rotating during ambulation. Prescriptions for pain medication and Xarelto in chart. Xarelto x 10 days post op. Follow up in 10-14 days for repeat evaluation and wound check. - Follow Up Care Current Providers and Referrals: Tracie Solis MD [Primary Care Provider] - Daphney Bravo MD [Medical Doctor] -
--- NOTE | 2018-11-11 13:23 | ASMTLACE ---
JOHN Length of stay for Answers: 3 days current admission Acuity / Level of Answers: Yes Care: Did the patient have an inpatient admission? Comorbidities - select Answers: Diabetes (uncontrolled or all that apply controlled) Opioid dependence / Chronic pain # of Emergency department Answers: 1-2 visits in the last 6 months Social determinants Answers: Mental health diagnosis (anxiety, depression, pers onality disorders, etc.) Score: 15 Date Signed: 11/11/2018 01:22 PM Electronically Signed By:EDSON Colbert
--- NOTE | 2018-11-11 13:27 | ASMTCMCOM ---
CM Note CM Note Notes: Pt medically stable for d/c to [facility], orders sent in [employer]. Hard scripts provided. RN Maryse called report. Simon with scheduled wc transport for 1529. Date Signed: 11/11/2018 01:27 PM Electronically Signed By:EDSON Colbert
--- NOTE | 2018-11-12 14:21 | ASDISCHSUM ---
Discharge Information Plan Status:SNF Medically Cleared to Leave: Discharge Date:11/11/2018 03:28 PM CM D/C Disposition: ADT D/C Disposition:Correction Facility Projected Discharge Date:11/11/2018 11:00 AM Transportation at D/C:Wheelchair Van Discharge Delay Reason: Follow-Up Date:11/11/2018 11:00 AM Discharge Slot: Final Diagnosis: Placement Information Referral Type:*Fdc/SNF Referral ID:[id number] Provider Name:[facility] Address 1:[address] Address 2: City:[place] Selection Factors: State:[place] Patient Contact Information Contact Name:PERI Relationship:Son Address: City:[place] Alternate Phone: State/Zip Code:[place] Email: Financial Information Financial Class:[facility] Primary Plan Desc:[facility] Primary Plan Number:[id number] Secondary Plan Desc: Secondary Plan Number: Assessment Information LACE LACE Length of stay for Answers: 3 days current admission Acuity / Level of Answers: Yes Care: Did the patient have an inpatient admission? Comorbidities - select Answers: Diabetes (uncontrolled or all that apply controlled) Opioid dependence / Chronic pain # of Emergency department Answers: 1-2 visits in the last 6 months Social determinants Answers: Mental health diagnosis (anxiety, depression, pers onality disorders, etc.) Score: 15 Date Signed: 11/11/2018 01:22 PM Electronically Signed By:EDSON Colbert [facility] CM Progress Note CM Note CM Note Notes: Pt had OA of hip, resides alone. PT/OT rec SNF, pt requests referral to [facility]. Referral sent to , they can accept pt and have sent for [employer] insurance authorization. CM to follow. D/c plan of care: [facility] Date Signed: 11/10/2018 11:20 AM Electronically Signed By:EDSON Colbert [facility] CM Progress Note CM Note CM Note Notes: [facility] has [facility] auth for SNF, Simon at is updated pt is not medically ready for d/c today. CM to follow. D/c plan of care: [facility] Date Signed: 11/10/2018 02:05 PM Electronically Signed By:EDSON Colbert [facility] CM Progress Note CM Note CM Note Notes: Pt medically stable for d/c to [facility], orders sent in [employer]. Hard scripts provided. TRISH Serra called report. Simon with scheduled wc transport for 1529. Date Signed: 11/11/2018 01:27 PM Electronically Signed By:EDSON Colbert Intervention Information
--- NOTE | 2018-11-16 12:27 | GDS ---
[f rep st] DISCHARGE SUMMARY CURRENT COMPLAINT: Right hip pain. HISTORY OF PRESENT ILLNESS: The patient is a 53-year-old female with a several-month history of righ t hip pain worsening with use and with time. MRI has revealed avascular necrosis of her femoral head . She has had a prior previous intramedullary kiara within the femur that had to be removed. However, subsequent to this she had a fall and a fracture of the distal portion of the femur requiring open r eduction and internal fixation, and has been 2 months since that surgery and she would like her hip s urgery in order to resolve the problem. HOSPITAL COURSE: Patient brought to the operating room on the day of admission, where she underwent a right total hip arthroplasty as well as a right knee injection for iliotibial band pain. Postopera tively, she progressed steadily with physical therapy to the point that once her pain was able to be kept under control and she was able to pass her physical therapy milestones she was able to be sent t o a rehab center for further evaluation and further treatment with instructions to return to us in th e office for further evaluation. DISCHARGE DIAGNOSIS: Right hip avascular necrosis with right iliotibial band syndrome. /[id number]/MODL
== END 2018-11-11 15:28 | DRG 470 ==
LOC: F3N 05:35 → EDSTATUS 07:15 → F3N 11:18
PROVIDERS: ADMIT Orthopaedic Surgery; ATTEND Orthopaedic Surgery
PROC: 0SR90JA Replacement of Right Hip Joint with Synthetic Substitute, Uncemented, Open Approach (ICD-10-PCS; principal; 2018-11-09 07:15)
DX: M87.851 Other osteonecrosis, right femur (principal); M76.31 Iliotibial band syndrome, right leg; R00.0 Tachycardia, unspecified; J45.998 Other asthma; E11.9 Type 2 diabetes mellitus without complications; E03.9 Hypothyroidism, unspecified; F41.9 Anxiety disorder, unspecified; K21.9 Gastro-esophageal reflux disease without esophagitis; J32.9 Chronic sinusitis, unspecified
CPT/HCPCS: 97116-GP; 97161-GP; 97165-GO; C1713; J0171; J0690; J1030; J1170; J1815; J1885; J2250; J2270; J2704; J2795; J3010